=== PATIENT | male | born 1950 | race Caucasian/White ===

== ENCOUNTER 2017-07-08 17:40 | Observation (INO) ==
--- NOTE | 2017-07-08 17:44 | Emergency Department Note ---
General Adult HPI - General Chief complaint: Shortness of Breath/Dyspnea Stated complaint: sob, cp Time Seen by Provider: 07/08/17 17:42 Mode of arrival: ambulatory - History of Present Illness HPI Narrative: This patient has had increasing shortness of breath and edema for the last 2 weeks despite taking 2 water pills. He has some mild chest tightness today. He does have a history of heart failure but not myocardial infarction. Slight nausea no vomiting. Has had a cough. - Related Data Home Medications Medication Instructions Recorded Confirmed albuterol sulfate 2.5 mg/3 mL 2.5 mg INHALATION QIDP PRN ml 12/11/14 04/18/17 (0.083 %) solution for nebulization mycophenolate mofetil 500 mg tablet 1,500 mg PO BID tab 12/11/14 04/18/17 diclofenac 1 % topical gel 2 g TOPICAL HS g 04/21/15 04/18/17 belimumab 400 mg intravenous 1,100 mg IV Q4W ml 01/06/16 04/18/17 solution doxycycline hyclate 100 mg capsule 100 mg PO QDAY cap 06/28/16 04/18/17 Previous Rx's Medication Instructions Recorded diabetic shoes #2 each NS 01/06/16 omeprazole 20 mg capsule,delayed 20 mg PO HS #90 cap 01/06/16 release insulin aspart U-100 100 unit/mL See Label Instructions SUB-Q 04/05/16 subcutaneous solution .COMPLEX #10 ml aspirin 325 mg tablet 325 mg PO QDAY #1 tab 05/24/16 silver ER topical gel,extended 1 applic TOPICAL QDAY #44 ml 05/24/16 release metoprolol tartrate 25 mg tablet See Label Instructions .ROUTE 09/21/16 .COMPLEX #90 tab albuterol sulfate HFA 90 2 puff INHALATION TIDP PRN #26 g 01/11/17 mcg/actuation aerosol inhaler insulin syringe with safety needle See Label Instructions .ROUTE 01/17/17 1 mL 30 gauge x 1/2" .COMPLEX #300 each sertraline 50 mg tablet 50 mg PO QDAY #90 tab 02/15/17 pneumococcal 13-cecilia conj 0.5 ml IM ONCE #0.5 ml 04/18/17 vaccine-dip crm (PF) 0.5 mL IM syringe furosemide 40 mg tablet 40 mg PO QDAY #90 tab 05/14/17 insulin detemir (U-100) 100 1,120 unit SUB-Q QAM 90 Days #1008 05/18/17 unit/mL subcutaneous solution ml warfarin 5 mg tablet 7.5 mg PO QDAY #100 tab 05/21/17 hydrocodone 7.5 mg-acetaminophen 1 tab PO QID PRN #120 tab 06/14/17 325 mg tablet pramipexole 1 mg tablet 4 mg PO HS #360 tab 06/14/17 testosterone cypionate 200 mg/mL 200 mg IM Q3W #4 ml 07/04/17 intramuscular oil Allergies Allergy/AdvReac Type Severity Reaction Status Date / Time Sulfa (Sulfonamide Allergy Severe Swelling Verified 04/18/17 13:50 Antibiotics) of Lip/Tongue/Throat nystatin Allergy Mild Rash Verified 04/18/17 13:50 adhesive Allergy Unknown Rash Verified 04/18/17 13:50 iodine AdvReac Severe Rash Verified 04/18/17 13:50 Review of Systems All systems ED: reviewed and negative except as stated. Past Medical History - Past Medical History [facility] Narrative: Medical History (Last Updated 04/21/17 @ 17:01 by Rajendra Wise MD) Insomnia due to medical condition classified elsewhere (Chronic) Viral syndrome (Resolved) Atrial fibrillation (Resolved) Skin lesions (Chronic) Lupus (systemic lupus erythematosus) (Chronic) Nephrolithiasis (Chronic) Primary biliary cirrhosis (Chronic) Posterior vitreous detachment of right eye (Chronic) Pyelonephritis, acute (Chronic) Weight gain (Chronic) Tinea cruris (Chronic) Radiculopathy (Chronic) Low Back Pain (Chronic) Trigger finger of left hand (Chronic) Dysphagia (Chronic) Edema leg (Chronic) Erectile dysfunction (Chronic) Esophageal reflux (Chronic) Fatigue (Chronic) Foot drop (Chronic 12/25/12) Gout (Chronic) Hyperglycemia, drug-induced (Chronic 09/24/13) Hiatal hernia (Chronic) Umbilical hernia (Chronic) Hypocalcemia (Chronic) Keratoconjunctivitis sicca (Chronic) Insomnia (Chronic 07/23/13) long-term use of drug (Chronic) Solitary lung nodule (Chronic 03/15/12) Lung disease (Chronic) Systemic lupus erythematosus (Chronic) Lymphadenopathy, mediastinal (Chronic 02/10/13) Diastolic heart failure (Chronic) Diabetes mellitus, type II (Chronic 08/28/12) Depressive disorder (Chronic 10/10/12) Obesity (Chronic) Memory loss (Chronic 07/02/12) Osteoarthrosis (Chronic) Pain (Chronic) Paresthesias (Chronic 12/25/12) Acute infective pericarditis (Resolved) Pleural effusion (Resolved 02/10/13) Pneumonia (Resolved) 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) Pulmonary fibrosis (Chronic 08/27/13) Restless leg syndrome (Chronic) Rosacea (Chronic) Shortness of breath (Chronic) Sicca syndrome, Sjogren's (Chronic 08/27/13) Stuttering (Chronic 07/02/12) Testosterone deficiency (Chronic 08/30/12) Thrombocytosis (Chronic) Cough (Chronic) Tinea corporis (Chronic 08/27/12) Tremor, essential (Chronic) Congestive heart failure (Chronic) Bronchitis (Chronic 05/10/12) Biliary cirrhosis (Chronic) Connective 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) Arthralgia (Chronic 07/23/13) Arteritis (Chronic) Anxiety (Chronic 05/08/12) Anemia (Chronic) Atrial fibrillation (Inactive) Bakers cyst (Inactive) Dislocation closed, shoulder (Inactive 04/26/12) History of angiography (Inactive 04/04/13) Malnutrition (Inactive) Nasal bone fx-closed (Inactive 04/26/12) Past Surgical History (Last Updated 04/21/17 @ 17:29 by Rajendra Wise MD) History of esophagogastroduodenoscopy (Resolved 04/21/14) History of colonoscopy (Resolved 04/21/14) History of penile implant (Resolved) History of cardiac catheterization (Inactive 04/04/13) History of cholecystectomy (Inactive) History of foot surgery (Inactive) History of knee surgery (Inactive 04/01/12) History of lumbar discectomy (Inactive) History of lung biopsy (Inactive 01/30/12) History of repair of rotator cuff (Inactive) History of right knee joint replacement (Inactive 06/08/14) History of shoulder surgery (Inactive 12/23/13) History of total right hip arthroplasty (Inactive) S/P skin biopsy (Inactive 12/03/12) S/p reverse total shoulder arthroplasty (Inactive 12/25/12) Status post thoracostomy tube placement (Inactive 05/22/13) Family History (Last Reviewed 04/18/17 @ 15:17 by Rajendra Wise MD) Father Coronary artery disease Mother Malignant neoplasm Home Medications Medication Instructions Recorded Confirmed Type albuterol sulfate 2.5 mg/3 mL 2.5 mg INHALATION QIDP PRN ml 12/11/14 04/18/17 History (0.083 %) solution for nebulization mycophenolate mofetil 500 mg tablet 1,500 mg PO BID tab 12/11/14 04/18/17 History diclofenac 1 % topical gel 2 g TOPICAL HS g 04/21/15 04/18/17 History belimumab 400 mg intravenous 1,100 mg IV Q4W ml 01/06/16 04/18/17 History solution diabetic shoes #2 each NS 01/06/16 04/18/17 Rx omeprazole 20 mg capsule,delayed 20 mg PO HS #90 cap 01/06/16 04/18/17 Rx release insulin aspart U-100 100 unit/mL See Label Instructions SUB-Q 04/05/16 Rx subcutaneous solution .COMPLEX #10 ml aspirin 325 mg tablet 325 mg PO QDAY #1 tab 05/24/16 04/18/17 Rx silver ER topical gel,extended 1 applic TOPICAL QDAY #44 ml 05/24/16 04/18/17 Rx release doxycycline hyclate 100 mg capsule 100 mg PO QDAY cap 06/28/16 04/18/17 History metoprolol tartrate 25 mg tablet See Label Instructions .ROUTE 09/21/16 Rx .COMPLEX #90 tab albuterol sulfate HFA 90 2 puff INHALATION TIDP PRN #26 g 01/11/17 04/18/17 Rx mcg/actuation aerosol inhaler insulin syringe with safety needle See Label Instructions .ROUTE 01/17/17 Rx 1 mL 30 gauge x 1/2" .COMPLEX #300 each sertraline 50 mg tablet 50 mg PO QDAY #90 tab 02/15/17 04/18/17 Rx pneumococcal 13-cecilia conj 0.5 ml IM ONCE #0.5 ml 04/18/17 04/18/17 Rx vaccine-dip crm (PF) 0.5 mL IM syringe prednisone 10 mg tablet 10 mg PO QDAY 04/18/17 04/18/17 History furosemide 40 mg tablet 40 mg PO QDAY #90 tab 05/14/17 Rx insulin detemir (U-100) 100 1,120 unit SUB-Q QAM 90 Days #1008 05/18/17 Rx unit/mL subcutaneous solution ml warfarin 5 mg tablet 7.5 mg PO QDAY #100 tab 05/21/17 Rx hydrocodone 7.5 mg-acetaminophen 1 tab PO QID PRN #120 tab 06/14/17 Rx 325 mg tablet pramipexole 1 mg tablet 4 mg PO HS #360 tab 06/14/17 Rx testosterone cypionate 200 mg/mL 200 mg IM Q3W #4 ml 07/04/17 Rx intramuscular oil Medical history: Reports: arthritis, atrial fibrillation, CHF, DM, GERD, kidney stones, liver disease, other Psychiatric history: Reports: anxiety, depression Surgical history ED: Reports: cholecystectomy, hip replacement, knee replacement , other (foot surgery. Lumbar discectomy. Lung biopsy.) - Social History smoking status: Former smoker Physical Exam Limitations: no limitations General appearance: alert Head: atraumatic Eye: Present: normal appearance ENT: normal exam Neck: Present: normal inspection Chest: Present: normal inspection Respiratory: Present: other (Rales in the bases) Cardiovascular: Present: tachycardia, irregular rhythm, normal heart sounds Abdominal: Present: soft, distention. Absent: tenderness, guarding Extremities: Present: pedal edema, pretibial edema Neurological: Present: alert Psychiatric: Present: normal affect Skin: Present: warm, dry, intact Course Vital Signs Temperature 98.6 F 07/08/17 17:41 Pulse Rate 133 H 07/08/17 17:41 Respiratory Rate 24 H 07/08/17 17:41 Blood Pressure 121/104 07/08/17 17:41 Pulse Oximetry (%) 96 07/08/17 17:41 Temperature 98.6 F 07/08/17 17:41 Pulse Rate 87 07/08/17 18:15 Respiratory Rate 22 07/08/17 18:39 Blood Pressure 105/74 07/08/17 18:15 Pulse Oximetry (%) 95 07/08/17 18:15 Medical Decision Making - [facility] Narrative Medical decision making narrative: Patient is in heart failure with atrial fibrillation with variable rate. I discussed the case with Dr. Raya he will be admitted to a telemetry bed. We gave him 40 of Lasix IV and he did have at least a 500 cc diuresis. - Lab Data Lab results reviewed: Yes I reviewed the patient's lab results. Result diagrams: 07/08/17 17:52 07/08/17 17:52 Lab Results 07/08/17 07/08/17 07/08/17 Range/Units 17:52 17:52 17:52 WBC 5.0 (4.5-11.0) K/mcL RBC 4.57 (4.50-5.90) M/mcL Hgb 13.8 (13.5-16.5) g/dL Hct 41.5 (41.0-55.0) % MCV 90.8 (80.0-100.0) fL MCH 30.2 (26.0-34.0) pg MCHC 33.2 (31.0-36.0) g/dL RDW 14.9 H (11.5-14.5) % Plt Count 241 (140-440) K/mcL MPV 8.6 (7.4-10.4) fL Gran % 80.3 H (38.0-78.0) % Lymph % (Auto) 9.7 L (15.5-49.0) % [place] % (Auto) 8.0 (1.0-12.0) % Eos % (Auto) 1.8 (0.0-7.0) % Baso % (Auto) 0.2 (0.0-2.0) % Gran # 4.0 (1.8-8.0) K/mcL Lymph # (Auto) 0.5 L (1.5-4.8) K/mcL [place] # (Auto) 0.4 (0.1-0.9) K/mcL Eos # (Auto) 0.1 (0.0-0.7) K/mcL Baso # (Auto) 0 (0.0-0.3) K/mcL Sodium 140 (133-145) mmol/L Potassium 4.3 (3.3-5.1) mmol/L Chloride 101 (96-108) mmol/L Carbon Dioxide 24 (22-30) mmol/L Anion Gap 15.0 (8-16) BUN 20 (8-23) mg/dl Creatinine 1.0 (0.7-1.2) mg/dl GFR Calculation 78 Glucose 171 H (70-105) mg/dL Calcium 9.0 (8.6-10.4) mg/dl Total Bilirubin 0.4 (0.0-1.0) mg/dL AST 38 H (0-37) U/l ALT 39 (0-40) U/l Alkaline Phosphatase 172 H (39-117) U/L Troponin T < 0.01 (0-0.03) ng/ml NT-Pro-B Natriuret Pep 3132.0 H (0-125) pg/ml Total Protein 6.8 (5.9-8.4) gm/dL Albumin 3.7 (3.2-5.2) gm/dL Globulin 3.1 (2.2-3.7) gm/dL Albumin/Globulin Ratio 1.2 (1.0-2.3) - Radiology Data Radiology results reviewed: Yes I reviewed the patient's radiology results. 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) Condition: Fair Referrals: Rajendra Wise MD [Primary Care Provider] - Time of Disposition: 18:55
[2017-07-08] MEDS ORDERED: FUROSEMIDE 40 MG/4 ML VIAL IV ONE ×3 (17:48→21:40)
[2017-07-08 18:32] LABS: Basophils # (Auto) 0 K/mcL (0.0-0.3); Basophils % (Auto) 0.2 % (0.0-2.0); Eosinophils # (Auto) 0.1 K/mcL (0.0-0.7); Eosinophils % (Auto) 1.8 % (0.0-7.0); Granulocytes % (Auto) 80.3 % (38.0-78.0); Lymphocytes # (Auto) 0.5 K/mcL (1.5-4.8); Lymphocytes % (Auto) 9.7 % (15.5-49.0); Mean Cell Volume 90.8 fL (80.0-100.0); Mean Corpuscular HGB Conc 33.2 g/dL (31.0-36.0); Mean Corpuscular Hemoglobin 30.2 pg (26.0-34.0); Monocytes # (Auto) 0.4 K/mcL (0.1-0.9); Platelet Count 241 K/mcL (140-440); RBC 4.57 M/mcL (4.50-5.90); Red Cell Distribution Width 14.9 % (11.5-14.5)
[2017-07-08 18:49] LABS: ALT/SGPT 39 U/l (0-40); Albumin 3.7 gm/dL (3.2-5.2); Albumin/Globulin Ratio 1.2 (1.0-2.3); Alkaline Phosphatase 172 U/L (39-117); Blood Urea Nitrogen 20 mg/dl (8-23)
[2017-07-08] MEDS ORDERED: 0.9 % SODIUM CHLORIDE 1,000 ML IV ONE (19:06)
[2017-07-08] MEDS ORDERED: NALOXONE HCL 0.4 MG/ML VIAL IV PRN (19:50)
[2017-07-08] MEDS ORDERED: DEXTROSE 50% 50 ML VIAL IV PRN (19:50)
[2017-07-08] MEDS ORDERED: HYDROcodone/APAP (PP) 7.5/325MG TABLET (#4) PO PRN (19:50)
[2017-07-08] MEDS ORDERED: METOPROLOL TARTRATE 5 MG/5 ML VIAL IV PRN (19:50)
[2017-07-08] MEDS ORDERED: ONDANSETRON 4 MG/2 ML VIAL IV PRN (19:50)
[2017-07-08] MEDS ORDERED: ACETAMINOPHEN 325 MG TABLET PO PRN (19:50)
[2017-07-08] MEDS ORDERED: DEXTROSE 31 GM ORAL.SUSP PO PRN (19:50)
--- NOTE | 2017-07-08 19:58 | XRay Report ---
CLINICAL INFORMATION: Shortness of breath COMPARISON: 06/07/2016 plain film and chest CT 07/08/2015 FINDINGS: Mild cardiomegaly is unchanged. Mediastinum the stylette is unremarkable. The pulmonary vessels are mildly distended compared to a baseline study from 03/16/2014. Slight interstitial edema noted in the lateral bases. Patient has a known prominent fat pad over the cardiac apex increasing density in the left lateral lung base. - No infiltrates IMPRESSION: Minimal CHF or volume overload Interpreted and Authenticated by: Christiano Leal 07/08/17
--- NOTE | 2017-07-08 20:44 | Internal Med History&Physical ---
Medical - H&P: HPI Patient information: Note initiated : 07/08/17 at 8:26 pm Service Date, if different from initiated Date: [] Patient: Ashish Rainey 66 y/o M admitted on 07/08/17 for tobias thomason. Chief Complaint: [] History of present illness: Mr. Rainey is a 66 year old Male with multiple medical issues, afib, Chf, follows with Dr retana, presents to the ER today with complaints of shortness of breath that has been bothering him for the last weeks. Shortness of breath is associated with swelling in his legs, decreased effort tolerance, increased fatigue. The patient is unable to lie down flat and sleep. The patient had some umbilical hernia issues, but denies any other acute complaints. for the last 2 weeks he denies any increase fluid intake, may be having a little more coffee than usual. The patient usually takes 40 mg Lasix twice a day. His gave him an extra dose of Lasix this morning to see if that would help. According to them the patient did not make any more urine and therefore he was brought to the emergency room for further evaluation He denies any infection, fever or chills. He has a chronic headache, no new dizziness, no changes in hearing or difficulty in swallowing changes in vision. He has some chest pressure and chest tightness that has been going on for the last few days. The patient denies any palpitations. He has chronic cough production,he has orthopnea, paroxysmal nocturnal dyspnea, poor effort tolerance which she did not quantify very well. The patient has abdominal distention which she attributes to his hernia, he denies any nausea vomiting no diarrhea or constipation no urinary complaints he has chronic joint pains from his lupus no jaundice reported. in the emergency room the patient was afebrile, heart rate varied from 100 - 140 , blood pressure was stable, labs unremarkable BNP elevated to more than 3000. Chest x-ray shows mild CHF. Patient was given 1 dose of IV Lasix and admitted to the hospital for the management All systems: reviewed and no additional remarkable complaints except as stated ( see HPI) Medical - H&P: PMH Medical history: Medical History (Last Updated 04/21/17 @ 17:01 by Rajendra Wise MD) Insomnia due to medical condition classified elsewhere (Chronic) Viral syndrome (Resolved) Atrial fibrillation (Resolved) Skin lesions (Chronic) Lupus (systemic lupus erythematosus) (Chronic) Nephrolithiasis (Chronic) Primary biliary cirrhosis (Chronic) Posterior vitreous detachment of right eye (Chronic) Pyelonephritis, acute (Chronic) Weight gain (Chronic) Tinea cruris (Chronic) Radiculopathy (Chronic) Low Back Pain (Chronic) Trigger finger of left hand (Chronic) Dysphagia (Chronic) Edema leg (Chronic) Erectile dysfunction (Chronic) Esophageal reflux (Chronic) Fatigue (Chronic) Foot drop (Chronic 12/25/12) Gout (Chronic) Hyperglycemia, drug-induced (Chronic 09/24/13) Hiatal hernia (Chronic) Umbilical hernia (Chronic) Hypocalcemia (Chronic) Keratoconjunctivitis sicca (Chronic) Insomnia (Chronic 07/23/13) 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) Solitary lung nodule (Chronic 03/15/12) Lung disease (Chronic) Systemic lupus erythematosus (Chronic) Lymphadenopathy, mediastinal (Chronic 02/10/13) Diastolic heart failure (Chronic) Diabetes mellitus, type II (Chronic 08/28/12) Depressive disorder (Chronic 10/10/12) Obesity (Chronic) Memory loss (Chronic 07/02/12) Osteoarthrosis (Chronic) Pain (Chronic) Paresthesias (Chronic 12/25/12) Acute infective pericarditis (Resolved) Pleural effusion (Resolved 02/10/13) Pneumonia (Resolved) 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) Pulmonary fibrosis (Chronic 08/27/13) Restless leg syndrome (Chronic) Rosacea (Chronic) Shortness of breath (Chronic) Sicca syndrome, Sjogren's (Chronic 08/27/13) Stuttering (Chronic 07/02/12) Testosterone deficiency (Chronic 08/30/12) Thrombocytosis (Chronic) Cough (Chronic) Tinea corporis (Chronic 08/27/12) Tremor, essential (Chronic) Congestive heart failure (Chronic) Bronchitis (Chronic 05/10/12) Biliary cirrhosis (Chronic) Connective 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) Arthralgia (Chronic 07/23/13) Arteritis (Chronic) Anxiety (Chronic 05/08/12) Anemia (Chronic) Atrial fibrillation (Inactive) Bakers cyst (Inactive) Dislocation closed, shoulder (Inactive 04/26/12) History of angiography (Inactive 04/04/13) Malnutrition (Inactive) Nasal bone fx-closed (Inactive 04/26/12) Surgical history: Past Surgical History (Last Updated 04/21/17 @ 17:29 by Rajendra Wise MD) History of esophagogastroduodenoscopy (Resolved 04/21/14) History of colonoscopy (Resolved 04/21/14) History of penile implant (Resolved) History of cardiac catheterization (Inactive 04/04/13) History of cholecystectomy (Inactive) History of foot surgery (Inactive) History of knee surgery (Inactive 04/01/12) History of lumbar discectomy (Inactive) History of lung biopsy (Inactive 01/30/12) History of repair of rotator cuff (Inactive) History of right knee joint replacement (Inactive 06/08/14) History of shoulder surgery (Inactive 12/23/13) History of total right hip arthroplasty (Inactive) S/P skin biopsy (Inactive 12/03/12) S/p reverse total shoulder arthroplasty (Inactive 12/25/12) Status post thoracostomy tube placement (Inactive 05/22/13) Pertinent family history: Family History (Last Reviewed 04/18/17 @ 15:17 by Rajendra Wise MD) Father Coronary artery disease Mother Malignant neoplasm Medical - H&P: Meds Home Medications Medication Instructions Recorded Confirmed Type albuterol sulfate 2.5 mg/3 mL 2.5 mg INHALATION QIDP PRN ml 12/11/14 07/08/17 History (0.083 %) solution for nebulization mycophenolate mofetil 500 mg tablet 1,500 mg PO BID tab 12/11/14 07/08/17 History diclofenac 1 % topical gel 2 g TOPICAL HS g 04/21/15 07/08/17 History belimumab 400 mg intravenous 1,100 mg IV Q4W ml 01/06/16 07/08/17 History solution diabetic shoes #2 each NS 01/06/16 04/18/17 Rx omeprazole 20 mg capsule,delayed 20 mg PO HS #90 cap 01/06/16 07/08/17 Rx release insulin aspart U-100 100 unit/mL See Label Instructions SUB-Q 04/05/16 Rx subcutaneous solution .COMPLEX #10 ml aspirin 325 mg tablet 325 mg PO QDAY #1 tab 05/24/16 07/08/17 Rx silver ER topical gel,extended 1 applic TOPICAL QDAY #44 ml 05/24/16 07/08/17 Rx release doxycycline hyclate 100 mg capsule 100 mg PO QDAY cap 06/28/16 07/08/17 History metoprolol tartrate 25 mg tablet See Label Instructions .ROUTE 09/21/16 Rx .COMPLEX #90 tab albuterol sulfate HFA 90 2 puff INHALATION TIDP PRN #26 g 01/11/17 07/08/17 Rx mcg/actuation aerosol inhaler insulin syringe with safety needle See Label Instructions .ROUTE 01/17/17 Rx 1 mL 30 gauge x 1/2" .COMPLEX #300 each sertraline 50 mg tablet 50 mg PO QDAY #90 tab 02/15/17 07/08/17 Rx pneumococcal 13-cecilia conj 0.5 ml IM ONCE #0.5 ml 04/18/17 07/08/17 Rx vaccine-dip crm (PF) 0.5 mL IM syringe furosemide 40 mg tablet 40 mg PO QDAY #90 tab 05/14/17 07/08/17 Rx insulin detemir (U-100) 100 1,120 unit SUB-Q QAM 90 Days #1008 05/18/17 Rx unit/mL subcutaneous solution ml warfarin 5 mg tablet 7.5 mg PO QDAY #100 tab 05/21/17 07/08/17 Rx hydrocodone 7.5 mg-acetaminophen 1 tab PO QID PRN #120 tab 06/14/17 07/08/17 Rx 325 mg tablet pramipexole 1 mg tablet 4 mg PO HS #360 tab 06/14/17 07/08/17 Rx testosterone cypionate 200 mg/mL 200 mg IM Q3W #4 ml 07/04/17 07/08/17 Rx intramuscular oil Allergies Allergy/AdvReac Type Severity Reaction Status Date / Time Sulfa (Sulfonamide Allergy Severe Swelling Verified 04/18/17 13:50 Antibiotics) of Lip/Tongue/Throat nystatin Allergy Mild Rash Verified 04/18/17 13:50 adhesive Allergy Unknown Rash Verified 04/18/17 13:50 iodine AdvReac Severe Rash Verified 04/18/17 13:50 Medical - H&P: Exam - Constitutional Vitals: Temp Pulse Resp BP Pulse Ox 98.6 F 98 H 27 H 127/74 96 07/08/17 17:41 07/08/17 20:00 07/08/17 19:02 07/08/17 20:00 07/08/17 20:00 Exam: GENERAL: The patient is a well-developed, well-nourished in no apparent distress. Is alert and oriented x3. VITAL SIGNS: Reviewed and as noted elsewhere. HEENT: Head is normocephalic and atraumatic. Extraocular muscles are intact. Pupils are equal, round, and reactive to light. Nares appeared normal. Mouth appears any without lesions. Mucous membranes are moist. NECK: Normal to inspection, Supple, No lymphadenopathy or thyromegaly. LUNGS: Air entry equal on both sides, no wheezing, but mild basilar crackles noted. No accessory muscles of respiration HEART:tachycardic rate, irregular rhythm , S1 and S2 heard, no Gallop, S3 or Rub Noted, systolic murmur mitral region. . ABDOMEN: Soft, nontender, and nondistended , obese abdomen with flank fullness. Positive bowel sounds. No gross hepatosplenomegaly was noted. EXTREMITIES: No cyanosis, edema present ++++ NEUROLOGIC: Cranial nerves II through XII are grossly intact. Motor and Sensory System Grossly Intact PSYCHIATRIC: Normal affect, Normal Mood. Appropriate Behavior. SKIN: No ulceration or wounds noted, No jaundice, No rash noted. Medical - H&P: Reslt - Labs CBC & Chem 7: 07/08/17 17:52 07/08/17 17:52 Labs: Short CBC 07/08/17 Range/Units 17:52 WBC 5.0 (4.5-11.0) K/mcL Hgb 13.8 (13.5-16.5) g/dL Hct 41.5 (41.0-55.0) % Plt Count 241 (140-440) K/mcL [facility] 07/08/17 17:52 Sodium 140 Potassium 4.3 Chloride 101 Carbon Dioxide 24 BUN 20 Creatinine 1.0 Glucose 171 H Calcium 9.0 Cardiac Enzymes 07/08/17 Range/Units 17:52 Troponin T < 0.01 (0-0.03) ng/ml Liver Function 07/08/17 Range/Units 17:52 Total Bilirubin 0.4 (0.0-1.0) mg/dL AST 38 H (0-37) U/l ALT 39 (0-40) U/l Alkaline Phosphatase 172 H (39-117) U/L Albumin 3.7 (3.2-5.2) gm/dL Medical - H&P: A/P - Narrative A/P Narrative: A/P Acute congestive heart failure: H/o pericarditis, according to the patient, get echo, last echo 1 yr ago shows normal lvef, IV lasix 40mg bid, place ceja, monitor on tele, fluid restriction to 2000ml /24 hrs. Etiology of chf? afib? was using steroids uptill recently, check tsh in AM. Afib with RVR: resume oral metoprolol takes 12.5 bid? IV metoprolol as needed to keep heart rate at goal. DM: Uncontrolled, glucose 174 on bmp,k was taking 100 of levemir, resume at 75 and sliding scale and monitor, titrate as needed HTN: Resume home bp medications/ metoprolol SLE/ Primary billiarry cirrhosis: Resume home [id number] , cellcept, BELIMUMAB (to be given on sunday) Chr Anticoagulation: INR sub therapeutic, on asa and coumadin, continue same, lovenox therapeutic dose for now. 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
[2017-07-08] MEDS ORDERED: PRAMIPEXOLE 1 MG TABLET PO SCH (21:00)
[2017-07-08] MEDS ORDERED: MYCOPHENOLATE MOFETIL 1500 MG PO SCH (21:00)
[2017-07-08] MEDS: ENOXAPARIN 120 MG/0.8 ML SYRINGE SQ SCH (21:49)
[2017-07-08] MEDS: OMEPRAZOLE 20 MG CAPSULE PO SCH (21:49)
[2017-07-08] MEDS: METOPROLOL TARTRATE 25 MG TABLET PO SCH (21:50)
[2017-07-08] MEDS: oxyCODONE/APAP 5/325MG TABLET PO PRN (22:29)
[2017-07-08] MEDS: INSULIN LISPRO 1 UNIT/0.01 ML UNIT SQ SCH (22:30)
[2017-07-08] MEDS: 0.9 % SODIUM CHLORIDE 10 ML SYRINGE IV SCH (22:36)
[2017-07-09] MEDS: IPRATROPIUM/ALBUTEROL 3 ML AMPUL.NEB NEB SCH ×4 (03:19→18:01)
[2017-07-09 05:30] LABS: Basophils # (Auto) 0 K/mcL (0.0-0.3); Basophils % (Auto) 0 % (0.0-2.0); Eosinophils # (Auto) 0.2 K/mcL (0.0-0.7); Granulocytes % (Auto) 78.9 % (38.0-78.0); Lymphocytes # (Auto) 0.5 K/mcL (1.5-4.8); Lymphocytes % (Auto) 10.3 % (15.5-49.0); Mean Cell Volume 90.4 fL (80.0-100.0); Mean Corpuscular HGB Conc 33.5 g/dL (31.0-36.0); Mean Corpuscular Hemoglobin 30.3 pg (26.0-34.0); Monocytes # (Auto) 0.3 K/mcL (0.1-0.9); Monocytes % (Auto) 6.8 % (1.0-12.0); Platelet Count 241 K/mcL (140-440); RBC 4.54 M/mcL (4.50-5.90); Red Cell Distribution Width 14.6 % (11.5-14.5)
[2017-07-09 06:38] LABS: ALT/SGPT 35 U/l (0-40); Albumin 3.3 gm/dL (3.2-5.2); Alkaline Phosphatase 137 U/L (39-117); Bilirubin,Direct < 0.2 mg/dL (0.0-0.3); Blood Urea Nitrogen 24 mg/dl (8-23); Gamma Glutamyl Transpeptidase 142 U/L (8-61); Uric Acid 7.8 mg/dL (2.5-8.0)
[2017-07-09] MEDS: 0.9 % SODIUM CHLORIDE 10 ML SYRINGE IV SCH ×3 (07:08→21:02)
[2017-07-09] MEDS ORDERED: MAGNESIUM SULFATE 2 GM/50 ML BAG IV ONE (07:25)
[2017-07-09] MEDS ORDERED: POTASSIUM CHLORIDE 20 MEQ PACKET PO ONE (07:25)
[2017-07-09] MEDS: INSULIN LISPRO 1 UNIT/0.01 ML UNIT SQ SCH ×4 (08:00→20:21)
[2017-07-09] MEDS: FUROSEMIDE 40 MG/4 ML VIAL IV SCH ×2 (08:05→16:31)
[2017-07-09] MEDS: ASPIRIN 325 MG ENTERIC COATED TABLET PO SCH (08:55)
[2017-07-09] MEDS: DOXYCYCLINE HYCLATE 100 MG TABLET.ORL PO SCH (08:55)
[2017-07-09] MEDS: INSULIN GLARGINE, HUMAN 1 UNIT/0.01 ML SQ SCH (08:55)
[2017-07-09] MEDS: SERTRALINE 50 MG TABLET PO SCH (08:55)
[2017-07-09] MEDS: METOPROLOL TARTRATE 25 MG TABLET PO SCH ×2 (08:55→20:07)
[2017-07-09] MEDS: ENOXAPARIN 120 MG/0.8 ML SYRINGE SQ SCH ×2 (08:56→20:07)
[2017-07-09] MEDS: MYCOPHENOLATE 250 MG CAPSULE PO SCH ×2 (09:11→19:19)
--- NOTE | 2017-07-09 11:07 | Internal Med Progress Note ---
Medical - PN: Subj Patient information: Note initiated : 07/09/17 at 11:05 am Service Date, if different from initiated Date: [] Patient: Ashish Rainey 66 y/o M admitted on 07/08/17 for SOB/Afib with RVR, CHF. Chief Complaint: [] Interval history: Mr. Rainey is a 66 year old Male with multiple medical issues, afib, Chf, follows with Dr retana, presents to the ER today with complaints of shortness of breath that has been bothering him for the last weeks. Shortness of breath is associated with swelling in his legs, decreased effort tolerance, increased fatigue. The patient is unable to lie down flat and sleep. The patient had some umbilical hernia issues, but denies any other acute complaints. for the last 2 weeks he denies any increase fluid intake, may be having a little more coffee than usual. The patient usually takes 40 mg Lasix twice a day. His gave him an extra dose of Lasix this morning to see if that would help. According to them the patient did not make any more urine and therefore he was brought to the emergency room for further evaluation He denies any infection, fever or chills. He has a chronic headache, no new dizziness, no changes in hearing or difficulty in swallowing changes in vision. He has some chest pressure and chest tightness that has been going on for the last few days. The patient denies any palpitations. He has chronic cough production,he has orthopnea, paroxysmal nocturnal dyspnea, poor effort tolerance which she did not quantify very well. The patient has abdominal distention which she attributes to his hernia, he denies any nausea vomiting no diarrhea or constipation no urinary complaints he has chronic joint pains from his lupus no jaundice reported. in the emergency room the patient was afebrile, heart rate varied from 100 - 140 , blood pressure was stable, labs unremarkable BNP elevated to more than 3000. Chest x-ray shows mild CHF. Patient was given 1 dose of IV Lasix and admitted to the hospital for the management July 09 patient seen and examined, sitting comfortably in the bed, no acute complaints. Breathing is better. He diuresed well overnight. Still has edema in the feet. Able to ablate well and tolerated by mouth diet well. Plan to continue diuresis for 1 more day Pertinent ROS: Denies headache, dizziness Denies chest pain, palpitations Denies cough or shortness of breath Denies abdominal pain, nausea or vomiting. - Constitutional Vitals: Vital Signs Temp Pulse Resp BP Pulse Ox 97.3 F 73 16 121/71 91 07/09/17 08:00 07/09/17 08:02 07/09/17 08:02 07/09/17 08:02 07/09/17 05:50 Period Temp Pulse Resp BP Sys/Corey Pulse Ox Last 24 Hr 97.3 F-98.6 F 52-155 16-27 105-146/68-126 91-99 Intake and Output 07/08/17 07/09/17 07/09/17 21:59 05:59 13:59 Intake Total 33 / 33 850 / 850 480 / 480 Output Total 2300 / 2300 2450 / 2450 1275 / 1275 Balance -2267 / -2267 -1600 / -1600 -795 / -795 Weight 282 lb Intake & Output: Intake & Output 07/08/17 07/09/17 07/09/17 21:59 05:59 13:59 Intake Total 33 / 33 850 / 850 480 / 480 Output Total 2300 / 2300 2450 / 2450 1275 / 1275 Balance -2267 / -2267 -1600 / -1600 -795 / -795 Weight 282 lb Intake: IV 33 / 33 Sodium Chloride 0.9% 1,000 ml @ 33 / 33 20 mls/hr IV .Q24H ONE Rx#: [id number] Oral 480 / 480 GI Tube Flush 850 / 850 Output: Urine Catheter Amount 2450 / 2450 Void Amount 2300 / 2300 1275 / 1275 Other: Meal Breakfast Percent of Meal Consumed 100% Feeding Ability Assist with Tray Set Up Stool Color Brown Stool Consistency Soft # Voids 3 # Bowel Movements 1 Exam: Constitutional; Afebrile, cooperative, alert, not in distress. Eyes- No icterus, , No periorbital swelling Ears- Ext ear normal, hearing normal to conversation. Neck- Midline trachea, supple Respiratory system: Air Entry equal on both sides, No crackles or wheezing, no rhonchi.(NO CRACKLES ON EXAM TODAY) CVS- Rate rhythm regular, S1,S2 heard, no gallop, no rub. edema improved from yesterday but still present Abdomen- Soft nontender abdomen, no organomegaly, no tenderness, no guarding or rigidity, NOC ENGINEER- AOOx3, moving all extremities, no gross focal deficit noted. Medical - PN: Obj Da - Labs CBC & Chem 7: 07/09/17 03:42 07/09/17 03:42 Labs: Abnormal Lab Results 07/09/1718 07/09/17 03:42 03:42 03:42 RDW 14.6 H Gran % 78.9 H Lymph % (Auto) 10.3 L Lymph # (Auto) 0.5 L PT 15.2 H INR 1.2 H BUN 24 H Glucose GGT 142 H AST Alkaline Phosphatase 137 H NT-Pro-B Natriuret Pep 07/08/17 07/08/17 07/08/17 17:52 17:52 17:52 RDW 14.9 H Gran % 80.3 H Lymph % (Auto) 9.7 L Lymph # (Auto) 0.5 L PT 16.6 H INR 1.3 H BUN Glucose 171 H GGT AST 38 H Alkaline Phosphatase 172 H NT-Pro-B Natriuret Pep 3132.0 H Meds: Medications Acetaminophen (Tylenol) 650 mg PO Q6HP PRN PRN Reason: PAIN/FEVER > 101 Albuterol/Ipratropium (Duoneb) 3 ml NEB Q6HRT [facility] Last Admin: 07/09/17 07:59 Dose: 3 ml Aspirin (Ecotrin) 325 mg PO DAILY [facility] Last Admin: 07/09/17 08:55 Dose: 325 mg Dextrose (Dextrose 50%) 0 ml IV UD PRN PRN Reason: Hypoglycemia Diagnostic Test (Pha) (Accu-Chek) 1 each FS ACHS [facility] Last Admin: 07/09/17 07:59 Dose: 1 each Doxycycline Hyclate (Doxycycline Hyclate) 100 mg PO DAILY [facility] Last Admin: 07/09/17 08:55 Dose: 100 mg Enoxaparin Sodium (Lovenox) 120 mg SQ BID [facility] Last Admin: 07/09/17 08:56 Dose: 120 mg Furosemide (Lasix) 40 mg IV BIDD [facility] Last Admin: 07/09/17 08:05 Dose: 40 mg Glucose (Insta-Glucose) 15 gm PO PRN PRN PRN Reason: Hypoglycemia Sodium Chloride (Sodium Chloride 0.9%) 1,000 mls @ 20 mls/hr IV .Q24H ONE Stop: 07/09/17 19:05 Last Infusion: 07/08/17 19:40 Dose: 0 mls/hr Insulin Glargine (Lantus) 75 unit SQ DAILY [facility] Last Admin: 07/09/17 08:55 Dose: 75 unit Insulin Human Lispro (Humalog) 0 unit SQ ACHS [facility] PRN Reason: Protocol Last Admin: 07/09/17 08:00 Dose: Not Given Metoprolol Tartrate (Lopressor) 5 mg IV Q4HP PRN PRN Reason: Tachyarrhythmias Last Admin: 07/08/17 21:51 Dose: 5 mg Metoprolol Tartrate (Lopressor) 12.5 mg PO BID [facility] Last Admin: 07/09/17 08:55 Dose: 12.5 mg Mycophenolate Mofetil (Cellcept) 1,500 mg PO BID@0700,2000 [facility] Last Admin: 07/09/17 09:11 Dose: 1,500 mg Naloxone HCl (Narcan) 0.1 mg IV Q2MIN PRN PRN Reason: Opiate Reversal Omeprazole (Prilosec) 20 mg PO HS [facility] Last Admin: 07/08/17 21:49 Dose: 20 mg Ondansetron HCl (Zofran) 4 mg IV Q4HP PRN PRN Reason: Nausea And Vomiting Oxycodone/Acetaminophen (Percocet 5-325 Mg) 1 tab PO Q4HP PRN PRN Reason: PAIN LEVEL 3-6 Last Admin: 07/08/17 22:29 Dose: 1 tab Pramipexole Dihydrochloride (Mirapex) 1 - [address] [facility] Pramipexole Dihydrochloride (Mirapex) 1 - 2 mg PO DAILY [facility] Sertraline HCl (Zoloft) 50 mg PO QDAY [facility] Last Admin: 07/09/17 08:55 Dose: 50 mg Sodium Chloride (Saline Flush) 10 ml IV Q8 [facility] Last Admin: 07/09/17 07:08 Dose: 10 ml Warfarin Sodium (Coumadin Per Pharmacy) 1 order PO UD [facility] Warfarin Sodium (Coumadin) 7.5 mg PO ONCE@1400 ONE Stop: 07/09/17 14:01 Medical - PN: A/P - Time Spent With Patient Total time spent is greater than 50% in coordination of care (as documented) at patient's floor/unit and/or counseling patient: - Narrative A/P Narrative: A/P Acute congestive heart failure: H/o pericarditis, echo pending, responding well to diureisis. Continue same. tsh wnl Afib with RVR: resume oral metoprolol takes 12.5 bid? IV metoprolol as needed to keep heart rate at goal. DM: Uncontrolled, glucose 174 on bmp,k was taking 100 of levemir, resume at 75 and sliding scale and monitor, titrate as needed HTN: Resume home bp medications/ metoprolol SLE/ Primary billiarry cirrhosis: Resume home [id number] , cellcept, BELIMUMAB (to be given on sunday, will need to be discharged for this medication to be given) Chr Anticoagulation: INR sub therapeutic, on asa and coumadin, continue same, lovenox therapeutic dose for now. DVT on lovenox full code Diet cardiac, diabetic, fluid restriction Medical - PN: Qual - Stroke Symptom Onset Unknown: No - VTE Deep Vein Thrombosis/Pulmonary Embolism Present on Admission: No
[2017-07-09] MEDS ORDERED: PRAMIPEXOLE 1 MG TABLET PO SCH ×2 (12:00→21:00)
[2017-07-09] MEDS ORDERED: WARFARIN 7.5 MG TABLET PO ONE (14:00)
[2017-07-09] MEDS: HYDROCORTISONE CRM 1% TUBE 30GM TOPICAL SCH ×2 (14:18→20:21)
[2017-07-09] MEDS ORDERED: METHOCARBAMOL 500 MG TABLET PO ONE (18:45)
[2017-07-09] MEDS ORDERED: METHOCARBAMOL 500 MG TABLET PO PRN (18:45)
[2017-07-09] MEDS: oxyCODONE/APAP 5/325MG TABLET PO PRN (19:45)
[2017-07-09] MEDS: OMEPRAZOLE 20 MG CAPSULE PO SCH (20:07)
[2017-07-09] MEDS ORDERED: HYDROCORTISONE CRM 1% TUBE 30GM TOPICAL SCH (21:00)
[2017-07-10] MEDS: IPRATROPIUM/ALBUTEROL 3 ML AMPUL.NEB NEB SCH ×2 (01:03→07:17)
[2017-07-10 05:14] LABS: ALT/SGPT 35 U/l (0-40); Albumin 3.5 gm/dL (3.2-5.2); Albumin/Globulin Ratio 1.1 (1.0-2.3); Alkaline Phosphatase 126 U/L (39-117); Bilirubin,Direct < 0.2 mg/dL (0.0-0.3); Blood Urea Nitrogen 23 mg/dl (8-23); Gamma Glutamyl Transpeptidase 153 U/L (8-61); Uric Acid 8.4 mg/dL (2.5-8.0)
[2017-07-10 05:17] LABS: Basophils # (Auto) 0 K/mcL (0.0-0.3); Basophils % (Auto) 0.2 % (0.0-2.0); Eosinophils # (Auto) 0.2 K/mcL (0.0-0.7); Eosinophils % (Auto) 3.4 % (0.0-7.0); Granulocytes % (Auto) 77.1 % (38.0-78.0); Lymphocytes # (Auto) 0.5 K/mcL (1.5-4.8); Lymphocytes % (Auto) 10.3 % (15.5-49.0); Mean Cell Volume 90.8 fL (80.0-100.0); Mean Corpuscular HGB Conc 33.3 g/dL (31.0-36.0); Mean Corpuscular Hemoglobin 30.2 pg (26.0-34.0); Monocytes # (Auto) 0.5 K/mcL (0.1-0.9); Platelet Count 245 K/mcL (140-440); RBC 4.56 M/mcL (4.50-5.90); Red Cell Distribution Width 14.5 % (11.5-14.5)
[2017-07-10] MEDS: 0.9 % SODIUM CHLORIDE 10 ML SYRINGE IV SCH (05:20)
[2017-07-10] MEDS: MYCOPHENOLATE 250 MG CAPSULE PO SCH (07:24)
[2017-07-10] MEDS: INSULIN LISPRO 1 UNIT/0.01 ML UNIT SQ SCH (07:32)
[2017-07-10] MEDS: FUROSEMIDE 40 MG/4 ML VIAL IV SCH (07:59)
[2017-07-10] MEDS: METOPROLOL TARTRATE 25 MG TABLET PO SCH (08:38)
[2017-07-10] MEDS: ASPIRIN 325 MG ENTERIC COATED TABLET PO SCH (08:39)
[2017-07-10] MEDS: SERTRALINE 50 MG TABLET PO SCH (08:39)
[2017-07-10] MEDS: INSULIN GLARGINE, HUMAN 1 UNIT/0.01 ML SQ SCH (08:40)
[2017-07-10] MEDS: DOXYCYCLINE HYCLATE 100 MG TABLET.ORL PO SCH (08:40)
[2017-07-10] MEDS: ENOXAPARIN 120 MG/0.8 ML SYRINGE SQ SCH (08:40)
[2017-07-10] MEDS: HYDROCORTISONE CRM 1% TUBE 30GM TOPICAL SCH (08:41)
--- NOTE | 2017-07-10 09:17 | Discharge Summary ---
Medical - DS: Prov Patient information: Note initiated : 07/10/17 at 9:14 am Service Date, if different from initiated Date: [] Patient: Ashish Rainey 66 y/o M admitted on 07/08/17 for SOB/Afib with RVR, CHF. Chief Complaint: [] Date of admission: 07/08/17 19:41 Discharge date: 07/10/17 Primary care physician: Rajendra Wise Admitting clinician: Femi Raya Consults: 07/08/17 18:52 Consult to Physician [CONS] Stat Comment: Consulting Provider: Femi Raya Reason For Exam: Physician to Consult Discharging clinician: Femi Raya Medical - DS: Meds - Discharge Medications Prescriptions: Apixaban [Eliquis] 5 mg PO BID #60 tab Aspirin [Aspirin EC] 81 mg PO DAILY #30 tablet. Active and Home Medications: Home Medications albuterol sulfate 2.5 mg/3 mL (0.083 %) solution for nebulization 2.5 mg INHALATION QIDP PRN ml 12/11/14 [History Confirmed 07/08/17 Last Taken 09/04/16 ] mycophenolate mofetil 500 mg tablet 1,500 mg PO BID tab 12/11/14 [History Confirmed 07/08/17 Last Taken 09/04/16] diclofenac 1 % topical gel 2 g TOPICAL HS g 04/21/15 [History Confirmed Last Taken 09/04/16] belimumab 400 mg intravenous solution 1,100 mg IV Q4W ml 01/06/16 [History Confirmed 07/08/17 Last Taken 09/04/16] omeprazole 20 mg capsule,delayed release 20 mg PO HS #90 cap 01/06/16 [Rx Confirmed 07/08/17 Last Taken 09/04/16] insulin aspart U-100 100 unit/mL subcutaneous solution See Label Instructions SUB-Q .COMPLEX #10 ml 04/05/16 [Rx Confirmed 07/08/17 Last Taken 09/04/16] aspirin 325 mg tablet 325 mg PO QDAY #1 tab 05/24/16 [Rx Confirmed 07/08/17 Last Taken 09/04/16] silver ER topical gel,extended release 1 applic TOPICAL QDAY #44 ml 05/24/16 [ Rx Confirmed 07/08/17 Last Taken 09/04/16] doxycycline hyclate 100 mg capsule 100 mg PO QDAY cap 06/28/16 [History Confirmed 07/08/17 Last Taken 09/04/16] metoprolol tartrate 25 mg tablet See Label Instructions .ROUTE .COMPLEX #90 tab 09/21/16 [Rx Confirmed 07/08/17 Last Taken Unknown] albuterol sulfate HFA 90 mcg/actuation aerosol inhaler 2 puff INHALATION TIDP PRN #26 g 01/11/17 [Rx Confirmed 07/08/17 Last Taken Unknown] sertraline 50 mg tablet 50 mg PO QDAY #90 tab 02/15/17 [Rx Confirmed 07/08/17 Last Taken Unknown] pneumococcal 13-cecilia conj vaccine-dip crm (PF) 0.5 mL IM syringe 0.5 ml IM ONCE # 0.5 ml 04/18/17 [Rx Confirmed 07/08/17 Last Taken Unknown] furosemide 40 mg tablet 40 mg PO QDAY #90 tab 05/14/17 [Rx Confirmed 07/08/17 Last Taken Unknown] warfarin 5 mg tablet 7.5 mg PO QDAY #100 tab 05/21/17 [Rx Confirmed 07/08/17 Last Taken Unknown] hydrocodone 7.5 mg-acetaminophen 325 mg tablet 1 tab PO QID PRN #120 tab [Rx Confirmed 07/08/17 Last Taken Unknown] pramipexole 1 mg tablet 4 mg PO HS #360 tab 06/14/17 [Rx Confirmed 07/08/17 Last Taken Unknown] testosterone cypionate 200 mg/mL intramuscular oil 200 mg IM Q3W #4 ml 07/04/17 [Rx Confirmed 07/08/17 Last Taken Unknown] Insulin Glargine, Human [Lantus] 100 unit SQ DAILY 07/09/17 [History Confirmed 07/09/17 Last Taken 07/08/17] Medical - DS: Hosp Hospital course: Mr. Rainey is a 66 year old Male with multiple medical issues, afib, Chf, follows with Dr araiza, presents to the ER today with complaints of shortness of breath that has been bothering him for the last few weeks. Shortness of breath is associated with swelling in his legs, decreased effort tolerance, increased fatigue. The patient is unable to lie down flat and sleep. The patient had some umbilical hernia issues, but denies any other acute complaints. for the last 2 weeks he denies any increase fluid intake, may be having a little more coffee than usual. The patient usually takes 40 mg Lasix twice a day. His gave him an extra dose of Lasix this morning to see if that would help. According to them the patient did not make any more urine and therefore he was brought to the emergency room for further evaluation. In the emergency room the patient was afebrile, heart rate varied from 100 - 140, blood pressure was stable, labs unremarkable BNP elevated to more than 3000. Chest x-ray shows mild CHF. Patient was given 1 dose of IV Lasix and admitted to the hospital for the management CHF exacerbation: Patient treated with IV lasix 40mg bid, patient responded well to treatment, neg 5400ml at discharge. At the time of discharge he was breathing better, edema of his legs nearly completely resolved. He will continue his home dose of lasix 40mg daily, advised low salt diet and to monitor his weight daily. Follow up with PCP and Petrographer as outpatient. Afib/ Chronic Anticoagulation: Patient has h/o intermittent afib, he is on Coumadin and his INR was 1.1, he has been on Coumadin for years, and his INR has never been at goal according to the patient. He will be switched from Coumadin to Eliquis at discharge. Should he not be able to afford this medicaiton or insuranc not covering it, he can go back on coumadin. The patient also takes aspirin 325mg daily. He does mention h/o of cath in past with angioplasty, not sure if a stent was placed. I have advised him to cut back the dose of aspirin to 81mg once daily. Given that he is on 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 for his Atrial fibrillation, the need for ASA will need to be looked into. WIll leave this decision at the discretion of beef trimmer. The rest of the stay in the hospital was uneventful, he had some cramping in his legs, and there was some concern in the patient mind about a DVT, but given that he is anticoagulated with coumadin, ( d dimer low positive 0.68) and will be on anticogulation for rest of his life further investigation would be moot, this was reviewed with the patient, who agreed with the plan Discharge diagnosis: CHF exacerbation - Time Spent with Patient Total time spent providing and/or coordinating discharge services: Greater than 30 minutes Medical - DS: Exam - Constitutional Vitals: Vital Signs Temp Pulse Resp BP BP Pulse Ox 07/10/17 07:20 72 16 07/10/17 07:07 18 114/65 07/10/17 07:03 97.2 F 18 114/65 96 07/10/17 03:58 97.3 F 18 123/78 94 07/09/17 23:46 97.3 F 18 110/46 95 07/09/17 19:50 98.5 F 20 117/83 95 07/09/17 15:17 97.1 F 18 101/73 95 07/09/17 15:08 101/73 95 07/09/17 13:59 69 16 07/09/17 12:00 97.4 F 07/09/17 11:20 97.2 F 16 110/71 97 07/09/17 11:17 110/71 Intake and Output 07/09/17 07/10/17 07/10/17 21:59 05:59 13:59 Intake Total 850 / 850 400 / 400 Output Total 925 / 925 1250 / 1250 550 / 550 Balance -75 / -75 -850 / -850 -550 / -550 Intake: Oral 850 / 850 400 / 400 Output: Urine Catheter Amount 925 / 925 1250 / 1250 100 / 100 Void Amount 450 / 450 Other: # Voids 1 Weight 281 lb 8 oz Additional comments: Constitutional; Afebrile, cooperative, alert, not in distress. Eyes- No icterus, , No periorbital swelling Ears- Ext ear normal, hearing normal to conversation. Neck- Midline trachea, supple Respiratory system: Air Entry equal on both sides, No crackles or wheezing, no rhonchi. CVS- Rate rhythm regular, S1,S2 heard, no gallop, no rub. Abdomen- Soft nontender abdomen, no organomegaly, no tenderness, no guarding or rigidity, PLAN EXAMINER- AOOx3, moving all extremities, no gross focal deficit noted. Medical - DS: Data Labs on day of discharge: Labs from last 24 hours 07/10/17 07/10/17 07/10/17 03:41 03:41 03:41 WBC 5.3 RBC 4.56 Hgb 13.8 Hct 41.4 MCV 90.8 MCH 30.2 MCHC 33.3 RDW 14.5 Plt Count 245 MPV 8.6 Gran % 77.1 Lymph % (Auto) 10.3 L Hayes % (Auto) 9.0 Eos % (Auto) 3.4 Baso % (Auto) 0.2 Gran # 4.1 Lymph # (Auto) 0.5 L Hayes # (Auto) 0.5 Eos # (Auto) 0.2 Baso # (Auto) 0 PT 14.5 INR 1.1 D-Dimer Sodium 141 Potassium 3.8 Chloride 99 Carbon Dioxide 30 Anion Gap 12.0 BUN 23 Creatinine 0.9 GFR Calculation 89 Glucose 125 H Uric Acid 8.4 H Calcium 9.0 Phosphorus 4.7 H Magnesium 2.0 Total Bilirubin 0.5 Direct Bilirubin < 0.2 GGT 153 H AST 38 H ALT 35 Alkaline Phosphatase 126 H Lactate Dehydrogenase 234 Total Protein 6.6 Albumin 3.5 Globulin 3.1 Albumin/Globulin Ratio 1.1 Triglycerides 92 07/09/17 07/09/17 18:43 18:43 WBC RBC Hgb Hct MCV MCH MCHC RDW Plt Count MPV Gran % Lymph % (Auto) Hayes % (Auto) Eos % (Auto) Baso % (Auto) Gran # Lymph # (Auto) Hayes # (Auto) Eos # (Auto) Baso # (Auto) PT INR D-Dimer 0.68 H Sodium Potassium 4.0 Chloride Carbon Dioxide Anion Gap BUN Creatinine GFR Calculation Glucose Uric Acid Calcium Phosphorus Magnesium 2.0 Total Bilirubin Direct Bilirubin GGT AST ALT Alkaline Phosphatase Lactate Dehydrogenase Total Protein Albumin Globulin Albumin/Globulin Ratio Triglycerides Medical - DS: A/P - Patient/Caregiver Discharge Instructions Activity: increase activity as tolerated Diet: Low Sodium (2gm), Cardiac (Fluid restriction to 2000ml / 24 hrs. ), Consistent Carbohydrate Additional Instructions: Please weigh yourself daily and keep record Takes lasix as directed by your doctor, If your weight increases by 5 lbs over 2 days, double the dose of lasix, if no response, call your PCP/ Petrographer for further recommendations. I have stopped your Coumadin and started you on a newer blood thinner drug, Eliquis. Please moss picker the prescription from the pharmacy, if you are unable to get the medication for any reason, cost/ need for insurance approval, please resume your Coumadin and talk with your Primary care provider or beef trimmer regarding alternatives to coumadin Go to the ER if bleeding, black stools, fever, chest pain or any other concerning symptom. Follow up with PCP in 1 week, your PCP will review the echo results with you. Follow up with your beef trimmer, who can also review your echo results and adjust your dosing of lasix. Talk to your beef trimmer regarding need for aspirin therapy, especially since you are already taking another blood thinner. - Follow up Plan Follow up with: Rajendra Wise MD [Primary Care Provider] - 07/16/17 9:45 am (Please check in at 9:30 am. Your appointment will be with Dr. Vickers as Dr. Wise is out of the office.) Aaron Araiza MD [Physician] - (Follow up with Dr. Araiza as needed.) Disposition: Home, Self-Care Prognosis: Fair Rehab Potential: Fair I certify that the patient requires SNF services: No Overall status at discharge: patient is back to baseline Medical - DS: Qual - VTE Deep Vein Thrombosis/Pulmonary Embolism Present on Admission: No
[2017-07-10] MEDS ORDERED: WARFARIN 7.5 MG TABLET PO ONE (14:00)
== END 2017-07-10 09:50 | disposition home or self-care (01) ==
LOC: ED 17:40 → ICU 17:40
PROVIDERS: ADMIT Internal Medicine; ATTEND Internal Medicine

== ENCOUNTER 2022-07-08 13:59 | Inpatient (IN) ==
--- NOTE | 2022-07-08 14:03 | Emergency Department Note ---
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 (Auto) (0.0-7.0) % Baso % (Auto) (0.0-2.0) % Lymph # (Auto) (1.50-4.80) K/mcL Miner # (Auto) (0.10-0.90) K/mcL Eos # (Auto) (0.00-0.70) K/mcL Baso # (Auto) (0.00-0.30) K/mcL Immature Gran # (0.00-0.05) K/mcl Absolute Neutrophils (1.80-8.00) K/mcL POC VBG pH (7.32-7.42) POC VBG pCO2 at Temp (41-51) POC VBG pO2 (25-40) POC VBG HCO3 (24-28) POC VBG Total CO2 (25-29) POC Venous O2 Sat (40-70) POC VBG Base Excess (-2-2) VBG Lactic Acid (0.5-2) Total Bilirubin 0.7 (0.1-1.0) mg/dL Direct Bilirubin 0.3 H (<0.3) mg/dL AST 42 H (<40) U/L ALT 35 (<40) U/L Alkaline Phosphatase 169 H (39-117) U/L NT-Pro-B Natriuret Pep (<125.0) pg/mL Total Protein 6.7 (5.9-8.4) gm/dL Albumin 4.0 (3.2-5.2) gm/dL Globulin 2.7 (2.2-3.7) gm/dL Procalcitonin 0.42 H (<0.10) ng/mL Urine Color Urine Appearance (Clear) Urine pH (5.0-9.0) Ur Specific Wake (1.000-1.035) Urine Protein (Negative) mg/dL Urine Glucose (UA) (Negative) mg/dL Urine Ketones (Negative) mg/dL Urine Occult Blood (Negative) mg/dL Urine Nitrate (Negative) Urine Bilirubin (Negative) mg/dL Urine Urobilinogen mg/dL Ur Leukocyte Esterase (Negative) /uL Urine RBC (0-3) /hpf Urine WBC (0-4) /hpf Ur Squamous Epith Cells (0-4) /hpf Urine Bacteria (0) /hpf Hyaline Casts (0-2) /lph Urine Mucus (None) /hpf Ur Culture Indicated? POC Troponin I < 0.02 (0.00-0.08) 07/08/22 07/08/22 07/08/22 Range/Units 17:28 18:18 18:45 WBC (4.5-11.0) K/mcL RBC (4.63-6.08) M/mcL Hgb (13.7-17.5) g/dL Hct (40.1-51.0) % MCV (80.0-100.0) fL MCH (26.0-34.0) pg MCHC (31.0-36.0) g/dL RDW (11.5-14.5) % Plt Count (140-440) K/mcL MPV (8.8-12.5) fL Immature Gran % (Auto) (0.0-0.5) % Neut % (Auto) (38.0-78.0) % Lymph % (Auto) (15.5-49.0) % Miner % (Auto) (1.0-12.0) % Eos % (Auto) (0.0-7.0) % Baso % (Auto) (0.0-2.0) % Lymph # (Auto) (1.50-4.80) K/mcL Miner # (Auto) (0.10-0.90) K/mcL Eos # (Auto) (0.00-0.70) K/mcL Baso # (Auto) (0.00-0.30) K/mcL Immature Gran # (0.00-0.05) K/mcl Absolute Neutrophils (1.80-8.00) K/mcL POC VBG pH 7.41 (7.32-7.42) POC VBG pCO2 at Temp 43.6 (41-51) POC VBG pO2 43 H (25-40) POC VBG HCO3 27.6 (24-28) POC VBG Total CO2 29.0 (25-29) POC Venous O2 Sat 79.0 H (40-70) POC VBG Base Excess 3.0 H (-2-2) VBG Lactic Acid 3.1 H 2.6 H (0.5-2) Total Bilirubin (0.1-1.0) mg/dL Direct Bilirubin (<0.3) mg/dL AST (<40) U/L ALT (<40) U/L Alkaline Phosphatase (39-117) U/L NT-Pro-B Natriuret Pep (<125.0) pg/mL Total Protein (5.9-8.4) gm/dL Albumin (3.2-5.2) gm/dL Globulin (2.2-3.7) gm/dL Procalcitonin (<0.10) ng/mL Urine Color Yellow Urine Appearance Hazy A (Clear) Urine pH 5.0 (5.0-9.0) Ur Specific Wake 1.019 (1.000-1.035) Urine Protein 30 A (Negative) mg/dL Urine Glucose (UA) 50 A (Negative) mg/dL Urine Ketones Negative (Negative) mg/dL Urine Occult Blood Negative (Negative) mg/dL Urine Nitrate Negative (Negative) Urine Bilirubin Negative (Negative) mg/dL Urine Urobilinogen Negative mg/dL Ur Leukocyte Esterase Negative (Negative) /uL Urine RBC 1 (0-3) /hpf Urine WBC 2 (0-4) /hpf Ur Squamous Epith Cells 2 (0-4) /hpf Urine Bacteria None (0) /hpf Hyaline Casts 1 (0-2) /lph Urine Mucus Few A (None) /hpf Ur Culture Indicated? No POC Troponin I (0.00-0.08) ED POC Tests ED POC Tests: BETTY - Influenza A Negative BETTY - Influenza B Negative BETTY - SARS Antigen Negative EKG Data EKG #1: EKG attestation: Yes I reviewed and interpreted this EKG. EKG results narrative: Paced rhythm with a rate of 106, MI 145, QRS 134, QTc of 460, T wave flattening in leads III and aVF, and absence of ST elevation or depression. Discharge Plan Patient/Caregiver Discharge Instructions Pt seen by FRONT DESK/PA only: No Clinical Impression: SOB (shortness of breath), Sepsis Patient Disposition: Xfer As Inpt ([facility]) Follow up with: Christiano Casey DO [Primary Care Provider] - Prescriptions: No Action cholecalciferol (vitamin D3) 1,000 unit tablet 1,000 unit PO QDAY Qty: 1 0RF ascorbic acid (vitamin C) 500 mg tablet 500 mg PO QDAY Qty: 1 0RF diclofenac sodium 1 % gel 2 g TOPICAL HS Qty: 100 3RF Novolog U-100 Insulin aspart 100 unit/mL solution 15 unit SUB-Q .COMPLEX Qty: 60 3RF Rx Instructions: 15 units plus sliding scale subcut 3 times daily with meals, MDD 81 units torsemide 20 mg tablet 40 mg PO DAILY Qty: 180 3RF Eliquis 5 mg tablet 5 mg PO BID Qty: 180 3RF pramipexole 1 mg tablet 4 mg PO HS Qty: 360 3RF testosterone [AndroGel] 20.25 mg/1.25 gram (1.62 %) gel in metered-dose pump 1 pump topical QDAY Qty: 75 0RF Rx Instructions: apply 1 pump amount over max area of ONE upper arm and shoulder Start 2 weeks after last dose of IM testosterone aripiprazole 2 mg tablet 2 mg PO QHS Qty: 90 1RF Toujeo Max U-300 SoloStar 300 unit/mL (3 mL) insulin pen 300 unit subcut DAILY 0RF albuterol sulfate 90 mcg/actuation HFA aerosol inhaler 2 puff INHALATION TIDP PRN (Reason: shortness of breath or wheezing) Qty: 26 3RF Benlysta 400 mg recon soln 1,400 mg IV Q4W Qty: 250 0RF levothyroxine [Synthroid] 50 mcg tablet 50 mcg PO QDAY Qty: 90 3RF (DME) Lift chair See Rx Instructions .Route .MEDSUPPLY Qty: 1 0RF Rx Instructions: As directed morphine [MS Contin] 15 mg tablet extended release 15 mg PO Q12H Qty: 56 0RF hydrocodone-acetaminophen 10-325 mg tablet 2 tab PO TID PRN (Reason: pain) Qty: 168 0RF sertraline 100 mg tablet 100 mg PO QDAY Qty: 90 3RF (DME) insulin syringe,safetyneedle 1 mL 31 gauge x 15/64" syringe See Rx Instructions .ROUTE .MEDSUPPLY Qty: 300 1RF Rx Instructions: Use with insulin TID Trulicity 3 mg/0.5 mL pen injector 3 mg subcut QWEEK Qty: 9 3RF mycophenolate mofetil [CellCept] 500 mg tablet 1,500 mg PO BID Patient Comments: Patient was confused and is still taking this, added back on list, RX from Dr. Figueroa~MS,[facility] dulaglutide [Trulicity] 3 mg/0.5 mL pen injector 3 mg subcut WEEKLY 0RF Rx Instructions: Taken on Sunday (DME) oxygen See Rx Instructions .Route .MEDSUPPLY Qty: 1 0RF Rx Instructions: Wear daily hydroxychloroquine 200 mg tablet 200 mg PO BID Hold Instructions: Doctor's Order amitriptyline 25 mg tablet 25 mg PO QHS Qty: 90 1RF Rx Instructions: increase in 25 mg increments weekly if needed to max of 100 mg qhs Toujeo Max U-300 SoloStar 300 unit/mL (3 mL) insulin pen 150 unit subcut QDAY Qty: 6 5RF (DME) diabetic shoes See Rx Instructions .Route .MEDSUPPLY Qty: 1 0RF Rx Instructions: As directed (DME) Briefs, Adult-Extra Large Misc See Rx Instructions .Route Qty: 28 2RF Rx Instructions: As directed diphenhydramine HCl 50 mg capsule 50 mg PO QHS isosorbide mononitrate 30 mg tablet extended release 24 hr 30 mg PO BID (DME) urine strainer See Rx Instructions .Route .MEDSUPPLY Qty: 1 0RF Rx Instructions: As directed silver sulfadiazine [Silvadene] 1 % cream 1 applic TOPICAL BID Qty: 50 0RF Rx Instructions: apply a 1.5 mm thickness to boils spironolactone 50 mg tablet 100 mg PO QAM Qty: 180 3RF glucagon 1 mg/0.2 mL solution 1 mg subcut Q20M PRN (Reason: hypoglycemia) Qty: 0.2 1RF Rx Instructions: until target blood sugar attained prednisone 5 mg tablet 5 mg PO QDAY Rx Instructions: Increase to 2 when in pain pantoprazole 40 mg tablet,delayed release (DR/EC) 40 mg PO QDAY fluticasone furoate-vilanterol [Breo Ellipta] 100-25 mcg/dose blister with de vice 1 inh inhalation Q24H Qty: 60 3RF albuterol sulfate 2.5 mg /3 mL (0.083 %) solution for nebulization 2.5 mg inhalation Q6H PRN (Reason: shortness of breath or wheezing) Qty: 360 3RF
[2022-07-08] MEDS ORDERED: 0.9 % SODIUM CHLORIDE 250 ML IV ONE ×2 (14:22→15:59)
[2022-07-08 15:31] LABS: Basophils # (Auto) 0.01 K/mcL (0.00-0.30); Basophils % (Auto) 0.1 % (0.0-2.0); Eosinophils # (Auto) 0.02 K/mcL (0.00-0.70); Eosinophils % (Auto) 0.2 % (0.0-7.0); Hematocrit 39.1 % (40.1-51.0); Hemoglobin 11.9 g/dL (13.7-17.5); Lymphocytes # (Auto) 0.28 K/mcL (1.50-4.80); Lymphocytes % (Auto) 2.7 % (15.5-49.0); Mean Cell Volume 97.5 fL (80.0-100.0); Mean Corpuscular HGB Conc 30.4 g/dL (31.0-36.0); Mean Platelet Volume 10.4 fL (8.8-12.5); Monocytes % (Auto) 0.9 % (1.0-12.0); Neutrophils % (Auto) 95.6 % (38.0-78.0); Platelet Count 235 K/mcL (140-440); RBC 4.01 M/mcL (4.63-6.08); Red Cell Distribution Width 14.1 % (11.5-14.5); WBC 10.5 K/mcL (4.5-11.0)
[2022-07-08 15:41] LABS: proBNP 306.1 pg/mL (<125.0)
[2022-07-08 15:43] LABS: Bilirubin,Direct 0.3 mg/dL (<0.3); Bilirubin,Total 0.7 mg/dL (0.1-1.0); Globulin 2.7 gm/dL (2.2-3.7)
[2022-07-08] MEDS ORDERED: VANCOMYCIN 2,000 MG in 0.9 % SODIUM CHLORIDE 500 ML IV ONE (15:59)
[2022-07-08] MEDS ORDERED: PIPERACILLIN SODIUM/TAZOBACTAM 3.375 GM in DEXTROSE 5% IN WATER 50 ML IV ONE (16:01)
[2022-07-08] MEDS ORDERED: 0.9 % SODIUM CHLORIDE 500 ML IV ONE ×2 (16:52→18:44)
[2022-07-08 19:06] LABS: Appearance,Urine HAZY (Clear); Bilirubin,Urine Negative (Negative); Color,Urine YELLOW; Culture Indicated,Urine No; Glucose,Urine (UA) 50 mg/dL (Negative); Ketones,Urine Negative (Negative); Leukocyte Esterase,Urine Negative /uL (Negative); Mucus,Urine FEW /hpf; Nitrate,Urine Negative (Negative); Protein,Urine 30 mg/dL (Negative); Specific Gravity,Urine 1.019 (1.000-1.035); Urine Blood Negative (Negative); Urine Hyaline Cast 1 /lph (0-2); Urine RBC 1 /hpf (0-3); Urine Squamous Epithelial Cell 2 /hpf (0-4); Urine WBC 2 /hpf (0-4); Urobilinogen,Urine Negative
[2022-07-08 20:18] LABS: Band Neutrophils % 18 % (0-10); Hypochromasia 1+ (None Seen); Lymphocytes % 2 % (15-49); Monocytes % (Manual) 3 % (1-12); Platelet Estimate NORMAL (Normal); RBC Morphology ABNORMAL (Normal); Segmented Neutrophils % 77 % (38-78)
[2022-07-08 20:34] LABS: ALT/SGPT 32 U/L (<40); AST/SGOT 32 U/L (<40); Albumin 3.4 gm/dL (3.2-5.2); Albumin/Globulin Ratio 1.5 (1.0-2.3); Alkaline Phosphatase 129 U/L (39-117); Bilirubin,Total 0.6 mg/dL (0.1-1.0); Blood Urea Nitrogen 38 mg/dL (8-23); Calcium 8.2 mg/dL (8.6-10.4); Carbon Dioxide 26 mmol/L (22-30); Chloride 98 mmol/L (96-108); Globulin 2.3 gm/dL (2.2-3.7); Glomerular Filtration Rate 43; Glucose 252 mg/dL (70-105)
--- NOTE | 2022-07-08 21:49 | Internal Med History&Physical ---
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 Eos % (Auto) 0.2 Baso % (Auto) 0.1 Lymph # (Auto) 0.28 L [place] # (Auto) 0.10 Eos # (Auto) 0.02 Baso # (Auto) 0.01 Seg Neutrophils % Band Neutrophils % Lymphocytes % Monocytes % (Manual) Immature Gran # 0.05 Absolute Neutrophils 10.07 H Platelet Estimate RBC Morphology Hypochromasia POC VBG pH 7.38 POC VBG pCO2 at Temp 51.9 H POC VBG pO2 15 L POC VBG HCO3 30.6 H POC VBG Total CO2 32.0 H POC Venous O2 Sat 19.0 L POC VBG Base Excess 5.0 H* VBG Lactic Acid 5.2 H* Sodium Potassium Chloride Carbon Dioxide Anion Gap BUN Creatinine GFR Calculation Glucose Calcium Total Bilirubin Direct Bilirubin AST ALT Alkaline Phosphatase NT-Pro-B Natriuret Pep Total Protein Albumin Globulin Albumin/Globulin Ratio Procalcitonin Urine Color Urine Appearance Urine pH Ur Specific [place] Urine Protein Urine Glucose (UA) Urine Ketones Urine Occult Blood Urine Nitrate Urine Bilirubin Urine Urobilinogen Ur Leukocyte Esterase Urine RBC Urine WBC Ur Squamous Epith Cells Urine Bacteria Hyaline Casts Urine Mucus Ur Culture Indicated? POC Troponin I A/P Narrative A/P Narrative: A: *severe Sepsis(tachycardia/tachypnea/bandemia) w/Hyperlactatemia: Unknown etio logy -lactate 5.2 on admit -UA/chest/abd/pelvis negative, no wounds -flu/covid neg *Hypotension: Responded to IV fluid in the ED *JUAN on CKD III: possible ATN *COPD(4L@home)/Pulmonary Fibrosis, chronic respiratory failure: *DM2: With hyperglycemia -a1c *Obesity: BMI 43 *CLARY w/cpap: *Paroxysmal A-fib s/p PPM: *Anemia, chronic: *SLE/Biliary cirrhosis: on prednisone, normally 10mg qd but currently on taper and at 30mg *Chronic back pain: Opioid dependent *GERD: *Depression/anxiety: *peripheral edema: On diuretics *h/o DVT: on eliquis P: -broad IV abx, pending BC/SC, mrsa screen -IVF, follow-up lactate -Monitor renal function/UOP/I&O -Avoid nephrotoxic meds -Trend PCT -quad -supp O2, IS, prn nebs, cont home IH's -Basal and SSI -hold diuretics for hypotension -cont home prednisone with stress dosing -Home medication reconciliation -PT/OT -CM for placement -ppx: home eliquisb / home PPI Time Spent With Patient Time: Total time spent is greater than 50% in coordination of care (as documented) at patient's floor/unit and/or counseling patient: Initial: Total time with patient: 75 - 90 minutes
[2022-07-08] MEDS ORDERED: HYDROCORTISONE SOD SUCC 100 MG VIAL IV SCH (21:53)
[2022-07-08] MEDS ORDERED: POTASSIUM CHLORIDE 40 MEQ in DEXTROSE 5% IN WATER 500 ML IV PRN (22:45)
[2022-07-08] MEDS ORDERED: POLYETHYLENE GLYCOL 3350 17 GM PACKET PO PRN (22:45)
[2022-07-08] MEDS ORDERED: MAGNESIUM SULFATE 2 GM/50 ML BAG IV PRN (22:45)
[2022-07-08] MEDS ORDERED: ACETAMINOPHEN 325 MG TABLET PO PRN (22:45)
[2022-07-08] MEDS ORDERED: ONDANSETRON 4 MG/2 ML VIAL IV PRN (22:45)
[2022-07-08] MEDS ORDERED: DEXTROSE 50% 50 ML VIAL IV PRN (22:45)
[2022-07-08] MEDS ORDERED: DEXTROSE 31 GM ORAL.SUSP PO PRN (22:45)
[2022-07-08] MEDS ORDERED: morphine 4 MG/ML VIAL IV PRN (22:45)
[2022-07-08] MEDS ORDERED: METOPROLOL TARTRATE 5 MG/5 ML VIAL IV PRN (22:45)
[2022-07-08] MEDS ORDERED: SENNOSIDES 1 TABLET PO PRN (22:45)
[2022-07-08] MEDS ORDERED: HYDROcodone/APAP 5/325MG TABLET PO PRN (22:45)
[2022-07-08] MEDS ORDERED: VANCOMYCIN PER PHARMACY IV ONE (22:45)
[2022-07-08] MEDS ORDERED: POTASSIUM CHLORIDE 20 MEQ TABLET PO PRN ×2 (22:45)
[2022-07-08] MEDS ORDERED: IPRATROPIUM/ALBUTEROL 3 ML AMPUL.NEB NEB PRN (22:45)
[2022-07-08 23:16] LABS: Hemoglobin A1C 10.9 % Hgb (4.0-6.0)
[2022-07-08] MEDS ORDERED: HYDROcodone/APAP 5/325MG TABLET PO ONE (23:45)
[2022-07-08] MEDS: PIPERACILLIN SODIUM/TAZOBACTAM 3.375 GM in DEXTROSE 5% IN WATER 50 ML IV SCH (23:49)
[2022-07-08] MEDS: INSULIN LISPRO 1 UNIT/0.01 ML UNIT SQ SCH (23:51)
[2022-07-08] MEDS ORDERED: INSULIN LISPRO 1 UNIT/0.01 ML UNIT SQ ONE (23:57)
[2022-07-08] MEDS: 0.9 % SODIUM CHLORIDE 1,000 ML IV SCH (23:58)
[2022-07-09] MEDS ORDERED: HYDROCORTISONE SOD SUCC 100 MG VIAL ONE (00:38)
[2022-07-09] MEDS: HYDROCORTISONE SOD SUCC 100 MG VIAL IV SCH ×4 (00:43→22:00)
[2022-07-09] MEDS: 0.9 % SODIUM CHLORIDE 10 ML SYRINGE IV SCH ×4 (00:44→22:00)
[2022-07-09] MEDS: PIPERACILLIN SODIUM/TAZOBACTAM 3.375 GM in DEXTROSE 5% IN WATER 50 ML IV SCH ×5 (02:00→23:52)
[2022-07-09] MEDS ORDERED: PIPERACILLIN SODIUM/TAZOBACTAM 3.375 GM VIAL IV ONE ×2 (02:06→02:07)
--- NOTE | 2022-07-09 04:33 | XRay Report ---
CLINICAL INFORMATION: Dyspnea COMPARISON: 03/01/2022 TECHNIQUE: Portable FINDINGS: Moderate cardiomegaly is unchanged. Pacemaker leads in stable satisfactory position. Mediastinum and pulmonary vessels are normal. Minor bibasilar fibrosis is similar previous study-no definite new pulmonary abnormalities. No effusions. IMPRESSION: No acute disease Interpreted and Authenticated by: Christiano Leal 07/09/22
--- NOTE | 2022-07-09 04:34 | Cat Scan Report ---
CLINICAL INFORMATION: Headache COMPARISON: Brain MRI 07/24/2013 TECHNIQUE: 2.5 mm helical slices were obtained in the skull base to vertex. Following reconstruction, axial reformatted images were reviewed at bone and parenchymal windows. The exam was performed using radiation dose optimization techniques including, but not limited to, automated exposure control, adjustment of the mA and/or kV according to patient size and use of iterative reconstruction technique. FINDINGS: The ventricles, sulci, fissures, and cisterns are symmetrically enlarged compatible with mild age-related atrophy. No extra-axial fluid collections are identified. Mild patchy chronic ischemic changes, in the deep cerebral white matter, are expected for age. There is no hemorrhage, mass effect, or edema. Bone windows show no osseous abnormality. IMPRESSION: Mild atrophy and chronic ischemic changes in the deep cerebral white matter-expected for age. No acute findings Interpreted and Authenticated by: Christiano Leal 07/09/22
--- NOTE | 2022-07-09 05:27 | Cat Scan Report ---
CLINICAL INFORMATION: Sepsis COMPARISON: Abdomen and pelvic CT 01/18/2022. Chest CT 11/13/2018 and 09/26/2021 TECHNIQUE: 0.625 mm helical slices were obtained from the lung apices through the subtrochanteric regions of the femurs. Following reconstruction, 2.5 mm sagittal, coronal and axial reformatted images were processed and reviewed at multiple windows and levels. 7 mm MIP reconstructions were obtained through the lungs to optimize nodule detection.The exam was performed using radiation dose optimization techniques including, but not limited to, automated exposure control, adjustment of the mA and/or kV according to patient size and use of iterative reconstruction technique. FINDINGS: Pulmonary parenchymal windows show 17 mm pleural-based nodule in the superior segment right lower lobe on image 80. This has been stable since 2019 and should be considered a benign granuloma or benign subpulmonic lymph node. Scattered fibrosis in the right upper and both lower lobes is unchanged. There are no infiltrates or new pulmonary abnormalities.. Pleural spaces are unremarkable-no effusions. Mediastinal windows show the heart is mildly enlarged. Pacemaker and leads in stable satisfactory position. There is calcification of the mitral annulus. The noncontrasted central pulmonary arteries are mildly enlarged: main pulmonary diameter 3.7 cm suggesting pulmonary hypertension-no change. Noncontrasted thoracic aorta is normal diameter. There is no adenopathy in the mediastinal, hilar or axillary regions. Esophagus is grossly normal. 22 mm low-attenuation lesion in the inferior left thyroid is stable since 2019 should be considered benign adenoma. Abdominal images show the gallbladder is surgically absent. Common bile duct is normal: 5 mm. Cirrhotic changes noted featuring slight decrease in liver size with irregular cortical surface and inhomogeneous attenuation. There is also asymmetric enlargement of the caudate lobe. No focal hepatic lesions. Both adrenal glands, spleen, pancreas and aorta, including aortic branches, are normal in size, configuration and attenuation without focal lesion. There is no free air, free fluid or adenopathy. Both noncontrasted kidneys are normal and symmetric in size, position, configuration and attenuation: The left is 12 cm in length and the right is also 12 cm in length. A 17 mm fat-containing benign angiomyolipoma, in the anterior mid right kidneys, is stable. There is a 6 mm nonobstructing stone in a inferior calyx of the right kidney and a 4 mm nonobstructing stone mid calyx left kidney. Bilateral renal cysts are stable. Pelvic images show normal urinary bladder, prostate and seminal vesicles. Insufflation bulbar penile prostheses anterior to the urinary bladder as previously seen. The stomach, small bowel, appendix region and large bowel are grossly normal. Bone windows show no osseous abnormality throughout the chest, abdomen or pelvis. There is moderate atrophy of the right subscapularis muscle with fat replacement. There is also atrophy of the left gluteus musculature with fat replacement. No change IMPRESSION: 1. No acute disease throughout the chest, abdomen or pelvis. No source for sepsis. 2. 18 millimeter benign fat-containing angiomyolipoma mid right kidney stable. 3. Nonobstructing stones in the calyces of both kidneys stable 4. Moderate cirrhosis. No evidence of portal hypertension or ascites. 5. Mild chronic bronchitis. Mild enlargement central pulmonary arteries suggests associated pulmonary hypertension Interpreted and Authenticated by: Christiano Leal 07/09/22
[2022-07-09 07:18] LABS: Hematocrit 37.6 % (40.1-51.0); Hemoglobin 10.5 g/dL (13.7-17.5); Mean Cell Volume 105.6 fL (80.0-100.0); Mean Corpuscular HGB Conc 27.9 g/dL (31.0-36.0); Mean Platelet Volume 10.5 fL (8.8-12.5); Platelet Count 183 K/mcL (140-440); RBC 3.56 M/mcL (4.63-6.08); Red Cell Distribution Width 14.3 % (11.5-14.5); WBC 17.1 K/mcL (4.5-11.0)
[2022-07-09] MEDS: 0.9 % SODIUM CHLORIDE 1,000 ML IV SCH ×2 (07:29→09:27)
[2022-07-09] MEDS ORDERED: PANTOPRAZOLE 40 MG VIAL IV SCH (07:30)
[2022-07-09] MEDS: INSULIN LISPRO 1 UNIT/0.01 ML UNIT SQ SCH ×8 (07:45→22:55)
--- NOTE | 2022-07-09 07:50 | Internal Med Progress Note ---
SUBJECTIVE Subjective Patient information: Note initiated : 07/09/22 at 7:43 am Service Date, if different from initiated Date: [] Patient: Ashish Rainey a 71 y/o M admitted on 07/08/22 for Fever, SOB. Chief Complaint: [] Interval history: History of present illness: Mr. Rainey is a 71 year old M Presents the ED with fever chills shortness of breath headache shakiness Per family patient had a temperature of 101 at home. Patient states that he was feeling fine yesterday and went to bed feeling okay. Woke up this morning about 4 AM with a bad headache and had fevers and shaking. He did not have any neck stiffness nausea vomiting light sensitivity or altered mental status. He felt weak. He has a chronic cough and there is been no change in that. Has chronic shortness of breath and feels that is been a little bit worse. He wears 4 L of nasal cannula day and night for COPD and pulmonary fibrosis. is concerned for UTI. She says he has been urinating less. Rapid flu and COVID in the ED was negative. Patient reports no wounds on his body. In the ED he was tachycardic on admit and eventually noted to be calm hypotonic tensive but responded to IV fluids. He also became hypoxic at 87% and put on nasal cannula. He is tachypneic in the 20s. Patient had a lactate of 5.2 that improved to 2.6 with IV fluids and a procalcitonin of 0.4. His white blood cell count was essentially normal but he had a bandemia of 18%. And his BUN and creatinine were elevated with a 38/1.6. Glucose also elevated at 252. Source of infection not identified on chest x-ray and UA and so a CT chest abdomen pelvis were done and verbal report to the ED physician was unremarkable. EKG ventricular paced. 3/5 Patient poor sleep. But otherwise feeling a little bit better. Blood glucose quite high this morning. Clarify home insulin regimen. Significant leukocytosis as expected given the bandemia yesterday. Bandemia is now improved. Lactic acidosis improved. Renal function no improvement. A1c 10.9. Urine output mediocre. Continue aggressive IV fluids. 1 blood culture positive thus far for gram-positive cocci in clusters of both bottles of 1 set. Complains of headaches. And states now he has some diarrhea, says he goes back and forth between diarrhea and constipation Review of Systems: chronic abdominal pain. Denies nausea/vomiting/chest /diarrhea.Otherwise see above. PHYSICAL EXAM General: Alert, Awake, No acute Distress, obese Eyes/N/T: EOMI, no scleral icterus, Head/Neck: neck supple, full ROM, CV: RRR, No murmurs, Pulm: Clear b/l, no wheezing/rhonchi/rales, no respiratory distress Abd: soft, nontender, +BS x4 Ext: no clubbing/cyanosis, LLE edema 2+ and RLE 1+ edema, nontender, venous stasis Neuro: Alert, no focal deficits, moves all extremities, sensations intact b/l upper/lower Psychiatric: Skin: warm/dry, normal color Constitutional Vitals: Vital Signs Temp Pulse Resp BP Pulse Ox O2 Del Method O2 Flow Rate 98.2 F 84 25 H 135/78 96 Nasal Cannula 2.5 07/09/22 04:00 07/08/22 22:45 07/09/22 06:00 07/09/22 06:00 07/09/22 06:00 07/09/22 06:18 07/09/22 06:18 Period Temp Pulse Resp BP Sys/Corey Pulse Ox O2 Del Method O2 Flow Rate Last 24 Hr 98.0 F-98.4 F 84-131 15-31 74-143/41-87 87-100 Nasal Cannula- Room Air 2.5-4 Intake and Output 07/08/22 07/09/22 07/09/22 19:59 03:59 11:59 Intake Total 1300 910 290 Output Total 350 300 Balance 1300 560 -10 Weight 142.882 kg 151.273 kg Intake & Output: Intake & Output 07/08/22 07/09/22 07/09/22 19:59 03:59 11:59 Intake Total 1300 910 290 Output Total 350 300 Balance 1300 560 -10 Weight 142.882 kg 151.273 kg Intake: IV 1300 550 50 Sodium Chloride 0.9% 250 ml @ 250 Wide Open IV BOLUS ONE Rx#: [id number] Sodium Chloride 0.9% 500 ml @ 1000 Wide Open IV [facility] Rx#: [id number] Zosyn 3.375 gm In Dextrose 5% 50 50 50 in Water 50 ml @ 100 mls/hr IV Q6H [facility] Rx#:[id number] Vancomycin 2,000 mg In Sodium 500 Chloride 0.9% 500 ml @ 250 mls/ hr IV ONCE ONE Rx#:[id number] Oral 360 240 Output: Void Amount 350 300 Other: Urine Appearance Clear Urine Color Light Reina Yellow Stool Size Large Stool Color Brown Stool Consistency Loose # Voids 2 OBJ DATA Labs 07/09/22 05:31 07/08/22 17:28 Labs: Abnormal Lab Results 07/09/22 07/08/22 07/08/22 05:31 22:48 22:04 WBC 17.1 H RBC 3.56 L Hgb 10.5 L Hct 37.6 L MCV 105.6 H MCHC 27.9 L Neut % (Auto) Lymph % (Auto) [place] % (Auto) Lymph # (Auto) Band Neutrophils % Lymphocytes % Absolute Neutrophils RBC Morphology Hypochromasia POC VBG pCO2 at Temp POC VBG pO2 POC VBG HCO3 POC VBG Total CO2 POC Venous O2 Sat POC VBG Base Excess VBG Lactic Acid 2.8 H BUN Creatinine Glucose Hemoglobin A1c 10.9 H Calcium Direct Bilirubin AST Alkaline Phosphatase NT-Pro-B Natriuret Pep Total Protein Procalcitonin Urine Appearance Urine Protein Urine Glucose (UA) Urine Mucus 07/08/22 07/08/22 07/08/22 18:45 18:18 17:28 WBC RBC Hgb Hct MCV MCHC Neut % (Auto) Lymph % (Auto) [place] % (Auto) Lymph # (Auto) Band Neutrophils % Lymphocytes % Absolute Neutrophils RBC Morphology Hypochromasia POC VBG pCO2 at Temp POC VBG pO2 43 H POC VBG HCO3 POC VBG Total CO2 POC Venous O2 Sat 79.0 H POC VBG Base Excess 3.0 H VBG Lactic Acid 2.6 H BUN 38 H Creatinine 1.6 H Glucose 252 H Hemoglobin A1c Calcium 8.2 L Direct Bilirubin AST Alkaline Phosphatase 129 H NT-Pro-B Natriuret Pep Total Protein 5.7 L Procalcitonin Urine Appearance Hazy A Urine Protein 30 A Urine Glucose (UA) 50 A Urine Mucus Few A 07/08/22 07/08/22 07/08/22 17:28 14:33 14:33 WBC RBC Hgb Hct MCV MCHC Neut % (Auto) Lymph % (Auto) [place] % (Auto) Lymph # (Auto) Band Neutrophils % 18 H Lymphocytes % 2 L Absolute Neutrophils RBC Morphology Abnormal A Hypochromasia 1+ A POC VBG pCO2 at Temp POC VBG pO2 POC VBG HCO3 POC VBG Total CO2 POC Venous O2 Sat POC VBG Base Excess VBG Lactic Acid 3.1 H BUN Creatinine Glucose Hemoglobin A1c Calcium Direct Bilirubin AST Alkaline Phosphatase NT-Pro-B Natriuret Pep Total Protein Procalcitonin 0.42 H Urine Appearance Urine Protein Urine Glucose (UA) Urine Mucus 07/08/22 07/08/22 07/08/22 14:33 14:33 14:33 WBC RBC 4.01 L Hgb 11.9 L Hct 39.1 L MCV MCHC 30.4 L Neut % (Auto) 95.6 H Lymph % (Auto) 2.7 L [place] % (Auto) 0.9 L Lymph # (Auto) 0.28 L Band Neutrophils % Lymphocytes % Absolute Neutrophils 10.07 H RBC Morphology Hypochromasia POC VBG pCO2 at Temp POC VBG pO2 POC VBG HCO3 POC VBG Total CO2 POC Venous O2 Sat POC VBG Base Excess VBG Lactic Acid BUN Creatinine Glucose Hemoglobin A1c Calcium Direct Bilirubin 0.3 H AST 42 H Alkaline Phosphatase 169 H NT-Pro-B Natriuret Pep 306.1 H Total Protein Procalcitonin Urine Appearance Urine Protein Urine Glucose (UA) Urine Mucus 07/08/22 14:05 WBC RBC Hgb Hct MCV MCHC Neut % (Auto) Lymph % (Auto) [place] % (Auto) Lymph # (Auto) Band Neutrophils % Lymphocytes % Absolute Neutrophils RBC Morphology Hypochromasia POC VBG pCO2 at Temp 51.9 H POC VBG pO2 15 L POC VBG HCO3 30.6 H POC VBG Total CO2 32.0 H POC Venous O2 Sat 19.0 L POC VBG Base Excess 5.0 H* VBG Lactic Acid 5.2 H* BUN Creatinine Glucose Hemoglobin A1c Calcium Direct Bilirubin AST Alkaline Phosphatase NT-Pro-B Natriuret Pep Total Protein Procalcitonin Urine Appearance Urine Protein Urine Glucose (UA) Urine Mucus Meds: Medications Acetaminophen (Acetaminophen 325 Mg Tablet) 650 mg PO Q6HP PRN; Protocol PRN Reason: Per Pain Protocol/Fever > 101 Hydrocodone Bitart/Acetaminophen (Hydrocodone/Apap 5/325mg Tablet) 1 tab PO Q4HP PRN PRN Reason: PAIN LEVEL 3-6 Last Admin: 07/08/22 23:48 Dose: 1 tab Albuterol/Ipratropium (Ipratropium/Albuterol 3 Ml Ampul.Neb) 3 ml NEB Q4HP PRN PRN Reason: Shortness Of Breath Dextrose (Dextrose 50% 50 Ml Vial) 0 ml IV UD PRN PRN Reason: Per Sliding Scale Diagnostic Test (Pha) (Accu-Chek 1 Each Strip) 1 each FS ACHS [facility] Last Admin: 07/08/22 23:51 Dose: 1 each Docusate Sodium (Docusate Sodium 100 Mg Capsule) 100 mg PO BID [place] Glucose (Dextrose 31 Gm Oral.Susp) 15 gm PO PRN PRN PRN Reason: Hypoglycemia Hydrocortisone Sodium Succinate (Hydrocortisone Sod Succ 100 Mg Vial) 50 mg IV Q8 [facility] Last Admin: 07/09/22 05:59 Dose: 50 mg Potassium Chloride 40 meq/ (Dextrose) 520 mls @ 130 mls/hr IV UD PRN PRN Reason: Potassium < 3 Magnesium Sulfate (Magnesium Sulfate) 2 gm in 50 mls @ 50 mls/hr IV UD PRN PRN Reason: Magnesium </= 1.6 Sodium Chloride (Sodium Chloride 0.9%) 1,000 mls @ 125 mls/hr IV .Q8H [facility] Stop: 07/09/22 14:44 Last Admin: 07/09/22 07:29 Dose: Not Given Piperacillin Sod/Tazobactam (Sod 3.375 gm/ Dextrose) 50 mls @ 100 mls/hr IV Q6H [facility]; Protocol Insulin Human Lispro (Insulin Lispro 1 Unit/0.01 Ml Unit) 0 unit SQ [facility]; Protocol Last Admin: 07/08/22 23:51 Dose: 10 units Metoprolol Tartrate (Metoprolol Tartrate 5 Mg/5 Ml Vial) 5 mg IV Q2HP PRN PRN Reason: Tachyarrhythmias HR>110 Morphine Sulfate (Morphine 4 Mg/Ml Vial) 0 mg IV Q3HP PRN PRN Reason: Pain Ondansetron HCl (Ondansetron 4 Mg/2 Ml Vial) 4 mg IV Q4HP PRN PRN Reason: Nausea And Vomiting Pantoprazole Sodium (Pantoprazole 40 Mg Vial) 40 mg IV QAMAC [facility] Polyethylene Glycol (Polyethylene Glycol 3350 17 Gm Packet) 17 gm PO DAILYP PRN PRN Reason: Constipation Potassium Chloride (Potassium Chloride 20 Meq Tablet) 40 meq PO UD PRN PRN Reason: Potssium is 3-3.5 Potassium Chloride (Potassium Chloride 20 Meq Tablet) 40 meq PO UD PRN PRN Reason: Potassium < 3 Senna (Sennosides 1 Tablet) 2 tab PO DAILYP PRN PRN Reason: Constipation Sodium Chloride (0.9 % Sodium Chloride 10 Ml Syringe) 10 ml IV Q8 [place] Last Admin: 07/09/22 06:26 Dose: 10 ml Vancomycin HCl (Vancomycin Per Pharmacy) 1 order IV ONCE ONE; Protocol Stop: 07/08/22 22:46 Last Admin: 07/08/22 23:49 Dose: Not Given A/P Narrative A/P Narrative: A: *severe Sepsis(tachycardia/tachypnea/leukocytosis-bandemia) w/Hyperlactatemia: 2/2 bacteremia -lactate 5.2 on admit -UA/chest/abd/pelvis negative, no wounds -flu/rsv/covid neg *Bacteremia (GBC in clusters): Source likely break in the skin given poor skin condition and immunosuppressive's *Hypotension: Responded to IV fluid in the ED *JUAN on CKD III, suspect ATN: -low uop for weight *COPD(4L@home)/Pulmonary Fibrosis, chronic respiratory failure: *DM2: With hyperglycemia -a1c 10.9 *Obesity: BMI 43 *CLARY w/cpap: *Paroxysmal A-fib s/p PPM: *Anemia, chronic: *SLE/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: -cellept, prednisone - normally 10mg qd but currently on taper and at 30mg *Immunosuppressed: on cellcept and prednisone *Chronic back pain: Opioid dependent *GERD: *Depression/anxiety: cont SSRI *Hypothyroidism: Continue levothyroxine *peripheral edema: On diuretics *h/o DVT: on eliquis P: -vanc/zosyn, pending BC/SC, mrsa screen neg -serial BC -IVFs, follow-up lactate -Monitor renal function/UOP/strict I&O -Avoid nephrotoxic meds -Trend PCT - urine studies -supp O2, IS, prn nebs, cont home IH's -Basal and SSI -hold diuretics for now -cont home prednisone with stress dosing -cont BB -PT/OT -CM for placement -ppx: home eliquis / home PPI Time Spent With Patient Time: Total time spent is greater than 50% in coordination of care (as documented) at patient's floor/unit and/or counseling patient: Subsequent: Total time with patient: 50 - 65 Minutes QUALITY Stroke Symptom Onset Unknown: No VTE Deep Vein Thrombosis/Pulmonary Embolism Present on Admission: No
[2022-07-09 08:05] LABS: ALT/SGPT 28 U/L (<40); AST/SGOT 22 U/L (<40); Albumin 3.3 gm/dL (3.2-5.2); Albumin/Globulin Ratio 1.3 (1.0-2.3); Alkaline Phosphatase 124 U/L (39-117); Bilirubin,Direct 0.2 mg/dL (<0.3); Bilirubin,Total 0.6 mg/dL (0.1-1.0); Blood Urea Nitrogen 43 mg/dL (8-23); Carbon Dioxide 23 mmol/L (22-30); Chloride 99 mmol/L (96-108); Globulin 2.6 gm/dL (2.2-3.7); Glomerular Filtration Rate 43; Glucose 462 mg/dL (70-105); Lactate Dehydrogenase 341 U/L (135-225); Triglycerides 171 mg/dL (<150); Uric Acid 7.8 mg/dL (2.5-8.0)
[2022-07-09 08:37] LABS: Band Neutrophils % 2 % (0-10); Lymphocytes % 2 % (15-49); Monocytes % (Manual) 2 % (1-12); Platelet Estimate NORMAL (Normal); RBC Morphology NORMAL (Normal); Segmented Neutrophils % 94 % (38-78)
[2022-07-09] MEDS ORDERED: predniSONE 5 MG TABLET PO SCH (09:00)
[2022-07-09] MEDS: SERTRALINE 100 MG TABLET PO SCH (09:02)
[2022-07-09] MEDS: morphine 15 MG TAB.SR.12H PO SCH ×2 (09:02→20:25)
[2022-07-09] MEDS: METOPROLOL TARTRATE 50 MG TABLET PO SCH ×2 (09:02→20:18)
[2022-07-09] MEDS: ISOSORBIDE MONONITRATE 30 MG TAB.XL.24H PO SCH ×2 (09:03→20:25)
[2022-07-09] MEDS: HYDROXYCHLOROQUINE 200 MG TABLET PO SCH ×2 (09:03→20:18)
[2022-07-09] MEDS: APIXABAN 5 MG TABLET PO SCH ×2 (09:03→20:18)
[2022-07-09] MEDS: LEVOTHYROXINE 50 MCG TABLET PO SCH (09:03)
[2022-07-09] MEDS: MYCOPHENOLATE 250 MG CAPSULE PO SCH ×2 (09:04→20:25)
[2022-07-09] MEDS: DOCUSATE SODIUM 100 MG CAPSULE PO SCH ×2 (09:04→19:15)
[2022-07-09] MEDS ORDERED: VANCOMYCIN PER PHARMACY IV SCH (09:15)
[2022-07-09] MEDS ORDERED: VANCOMYCIN 1,000 MG in 0.9 % SODIUM CHLORIDE 250 ML IV SCH (11:00)
[2022-07-09] MEDS ORDERED: predniSONE 20 MG TABLET PO SCH (12:00)
[2022-07-09] MEDS: Fluticasone Furoate-Vilanterol [Breo Ellipta] 100 INH SCH (13:28)
[2022-07-09] MEDS: PANTOPRAZOLE 40 MG TABLET PO SCH (17:18)
[2022-07-09] MEDS: INSULIN GLARGINE, HUMAN 1 UNIT/0.01 ML SQ SCH (20:18)
[2022-07-09] MEDS: AMITRIPTYLINE 25 MG TABLET PO SCH (20:18)
[2022-07-09] MEDS: Diclofenac Sodium 1 % gel TOPICAL SCH (20:19)
[2022-07-09] MEDS: PRAMIPEXOLE 1 MG TABLET PO SCH (20:30)
--- NOTE | 2022-07-09 20:53 | EKG ---
[facility] Test Date: 2022-07-08 Pat Name: Ashish Rainey Department: ED Room: Gender: Male [employer]: KASSY : [id number] Requested By: Vicente Gonzalez Order Number: [id number] Reading MD: Ashish Carbajal Measurements Intervals [place] Rate: 106 P: 0 IN: 145 QRS: 221 QRSD: 134 T: -48 QT: 346 QTc: 460 Interpretive Statements Atrial-sensed ventricular-paced rhythm No further analysis attempted due to paced rhythm Baseline wander in lead(s) V4,V5 Electronically Signed On 07-09-2022 20:53:06 PST by Ashish Carbajal /store/M0/[id number]
[2022-07-10] MEDS: INSULIN LISPRO 1 UNIT/0.01 ML UNIT SQ SCH ×8 (01:08→22:57)
[2022-07-10] MEDS: PIPERACILLIN SODIUM/TAZOBACTAM 3.375 GM in DEXTROSE 5% IN WATER 50 ML IV SCH (05:10)
[2022-07-10] MEDS: HYDROCORTISONE SOD SUCC 100 MG VIAL IV SCH ×2 (05:11→20:32)
[2022-07-10] MEDS: 0.9 % SODIUM CHLORIDE 10 ML SYRINGE IV SCH ×3 (05:19→20:39)
[2022-07-10 06:31] LABS: Basophils # (Auto) 0.01 K/mcL (0.00-0.30); Basophils % (Auto) 0.1 % (0.0-2.0); Eosinophils # (Auto) 0.01 K/mcL (0.00-0.70); Eosinophils % (Auto) 0.1 % (0.0-7.0); Hematocrit 33.2 % (40.1-51.0); Hemoglobin 10.1 g/dL (13.7-17.5); Lymphocytes # (Auto) 0.35 K/mcL (1.50-4.80); Lymphocytes % (Auto) 3.6 % (15.5-49.0); Mean Cell Volume 97.6 fL (80.0-100.0); Mean Corpuscular HGB Conc 30.4 g/dL (31.0-36.0); Mean Platelet Volume 10.4 fL (8.8-12.5); Monocytes # (Auto) 0.45 K/mcL (0.10-0.90); Monocytes % (Auto) 4.6 % (1.0-12.0); Neutrophils % (Auto) 90.2 % (38.0-78.0); Platelet Count 176 K/mcL (140-440); Red Cell Distribution Width 13.8 % (11.5-14.5); WBC 9.9 K/mcL (4.5-11.0)
[2022-07-10 07:11] LABS: ALT/SGPT 20 U/L (<40); AST/SGOT 11 U/L (<40); Albumin 2.9 gm/dL (3.2-5.2); Albumin/Globulin Ratio 1.2 (1.0-2.3); Alkaline Phosphatase 89 U/L (39-117); Bilirubin,Direct < 0.2 mg/dL (0-0.3); Bilirubin,Total 0.3 mg/dL (0.1-1.0); Blood Urea Nitrogen 28 mg/dL (8-23); Calcium 8.2 mg/dL (8.6-10.4); Carbon Dioxide 25 mmol/L (22-30); Chloride 104 mmol/L (96-108); Globulin 2.5 gm/dL (2.2-3.7); Glomerular Filtration Rate 67; Glucose 138 mg/dL (70-105); Lactate Dehydrogenase 245 U/L (135-225); Phosphorous 2.7 mg/dL (2.5-4.5); Triglycerides 115 mg/dL (<150); Uric Acid 5.4 mg/dL (2.5-8.0)
[2022-07-10] MEDS: PANTOPRAZOLE 40 MG TABLET PO SCH ×2 (07:19→17:09)
[2022-07-10] MEDS: LEVOTHYROXINE 50 MCG TABLET PO SCH (07:19)
--- NOTE | 2022-07-10 07:46 | Internal Med Progress Note ---
SUBJECTIVE Subjective Patient information: Note initiated : 07/10/22 at 7:37 am Service Date, if different from initiated Date: [] Patient: Ashish Rainey a 71 y/o M admitted on 07/08/22 for Fever, SOB. Chief Complaint: [] Interval history: History of present illness: Mr. Rainey is a 71 year old M Presents the ED with fever chills shortness of breath headache shakiness Per family patient had a temperature of 101 at home. Patient states that he was feeling fine yesterday and went to bed feeling okay. Woke up this morning about 4 AM with a bad headache and had fevers and shaking. He did not have any neck stiffness nausea vomiting light sensitivity or altered mental status. He felt weak. He has a chronic cough and there is been no change in that. Has chronic shortness of breath and feels that is been a little bit worse. He wears 4 L of nasal cannula day and night for COPD and pulmonary fibrosis. is concerned for UTI. She says he has been urinating less. Rapid flu and COVID in the ED was negative. Patient reports no wounds on his body. In the ED he was tachycardic on admit and eventually noted to be calm hypotonic tensive but responded to IV fluids. He also became hypoxic at 87% and put on nasal cannula. He is tachypneic in the 20s. Patient had a lactate of 5.2 that improved to 2.6 with IV fluids and a procalcitonin of 0.4. His white blood cell count was essentially normal but he had a bandemia of 18%. And his BUN and creatinine were elevated with a 38/1.6. Glucose also elevated at 252. Source of infection not identified on chest x-ray and UA and so a CT chest abdomen pelvis were done and verbal report to the ED physician was unremarkable. EKG ventricular paced. 3/5 Patient poor sleep. But otherwise feeling a little bit better. Blood glucose quite high this morning. Clarify home insulin regimen. Significant leukocytosis as expected given the bandemia yesterday. Bandemia is now improved. Lactic acidosis improved. Renal function no improvement. A1c 10.9. Urine output mediocre. Continue aggressive IV fluids. 1 blood culture positive thus far for gram-positive cocci in clusters of both bottles of 1 set. Complains of headaches. And states now he has some diarrhea, says he goes back and forth between diarrhea and constipation 3/6 Patient complains of headache. Sore spot on his tongue. 2 sets of blood cultures with gram-positive cocci in clusters and awaiting final identification. Echo pending. Repeat blood cultures from the fifth negative thus far. Leukocytosis improving. Renal function improving. Review of Systems: chronic abdominal pain. Denies nausea/vomiting/chest /diarrhea.Otherwise see above. PHYSICAL EXAM General: Alert, Awake, No acute Distress, obese Eyes/N/T: EOMI, no scleral icterus, nonerythematous small ulcer x2 on left of tongue - aphthous ulcer Head/Neck: neck supple, full ROM, CV: RRR, No murmurs, Pulm: Clear b/l, no wheezing/rhonchi/rales, no respiratory distress Abd: soft, nontender, +BS x4 Ext: no clubbing/cyanosis, LLE edema 2+ and RLE 1+ edema, nontender, venous stasis Neuro: Alert, no focal deficits, moves all extremities, sensations intact b/l upper/lower Psychiatric: Skin: warm/dry, normal color Constitutional Vitals: Vital Signs Temp Pulse Resp BP Pulse Ox O2 Del Method O2 Flow Rate 98.2 F 70 20 124/79 98 Nasal Cannula 2.5 07/10/22 00:00 07/10/22 04:00 07/10/22 06:00 07/10/22 06:00 07/10/22 04:00 07/10/22 06:00 07/10/22 06:00 Period Temp Pulse Resp BP Sys/Corey Pulse Ox O2 Del Method O2 Flow Rate Last 24 Hr 97.7 F-98.3 F 70-93 17-32 106-149/68-99 84-100 Nasal Cannula- Nasal Cannula 2-2.5 Intake and Output 07/09/22 07/10/22 07/10/22 19:59 03:59 11:59 Intake Total 1580 1290 290 Output Total 920 525 300 Balance 660 765 -10 Weight 153.813 kg Intake & Output: Intake & Output 07/09/22 07/10/22 07/10/22 19:59 03:59 11:59 Intake Total 1580 1290 290 Output Total 920 525 300 Balance 660 765 -10 Weight 153.813 kg Intake: IV 350 1050 50 Sodium Chloride 0.9% 1,000 ml @ 1000 125 mls/hr IV .Q8H [facility] Rx#: [id number] Zosyn 3.375 gm In Dextrose 5% 100 50 50 in Water 50 ml @ 100 mls/hr IV Q6H [place] Rx#:[id number] Vancomycin 1,000 mg In Sodium 250 Chloride 0.9% 250 ml @ 250 mls/ hr IV ONCE [facility] Rx#:[id number] Oral 1230 240 240 Output: Void Amount 920 525 300 Other: Meal Dinner Percent of Meal Consumed 100% Feeding Ability Independent Urine Appearance Clear Clear Clear Urine Color Yellow Yellow Yellow Light Reina Urine Odor Normal OBJ DATA Labs 07/10/22 05:18 07/10/22 05:18 Labs: Abnormal Lab Results 07/10/22 07/10/22 07/10/22 05:24 05:18 05:18 WBC RBC 3.40 L Hgb 10.1 L Hct 33.2 L MCV MCHC 30.4 L Immature Gran % (Auto) 1.4 H Neut % (Auto) 90.2 H Lymph % (Auto) 3.6 L [place] % (Auto) Lymph # (Auto) 0.35 L Seg Neutrophils % Band Neutrophils % Lymphocytes % Immature Gran # 0.14 H Absolute Neutrophils 8.89 H RBC Morphology Hypochromasia POC VBG pCO2 at Temp POC VBG pO2 POC VBG HCO3 POC VBG Total CO2 POC Venous O2 Sat POC VBG Base Excess VBG Lactic Acid BUN 28 H Creatinine Glucose 138 H Hemoglobin A1c Calcium 8.2 L Direct Bilirubin GGT 145 H AST Alkaline Phosphatase Lactate Dehydrogenase 245 H NT-Pro-B Natriuret Pep Total Protein 5.4 L Albumin 2.9 L Triglycerides Procalcitonin 4.05 H Urine Appearance Urine Protein Urine Glucose (UA) Urine Mucus 07/09/22 07/09/22 07/09/22 09:01 05:32 05:31 WBC RBC Hgb Hct MCV MCHC Immature Gran % (Auto) Neut % (Auto) Lymph % (Auto) [place] % (Auto) Lymph # (Auto) Seg Neutrophils % Band Neutrophils % Lymphocytes % Immature Gran # Absolute Neutrophils RBC Morphology Hypochromasia POC VBG pCO2 at Temp POC VBG pO2 POC VBG HCO3 28.1 H POC VBG Total CO2 30.0 H POC Venous O2 Sat 71.0 H POC VBG Base Excess 3.0 H VBG Lactic Acid BUN 43 H Creatinine 1.6 H Glucose 462 H* Hemoglobin A1c Calcium 8.0 L Direct Bilirubin GGT 179 H AST Alkaline Phosphatase 124 H Lactate Dehydrogenase 341 H NT-Pro-B Natriuret Pep Total Protein Albumin Triglycerides 171 H Procalcitonin 12.01 H Urine Appearance Urine Protein Urine Glucose (UA) Urine Mucus 07/09/22 07/08/22 07/08/22 05:31 22:48 22:04 WBC 17.1 H RBC 3.56 L Hgb 10.5 L Hct 37.6 L MCV 105.6 H MCHC 27.9 L Immature Gran % (Auto) Neut % (Auto) Lymph % (Auto) [place] % (Auto) Lymph # (Auto) Seg Neutrophils % 94 H Band Neutrophils % Lymphocytes % 2 L Immature Gran # Absolute Neutrophils RBC Morphology Hypochromasia POC VBG pCO2 at Temp POC VBG pO2 POC VBG HCO3 POC VBG Total CO2 POC Venous O2 Sat POC VBG Base Excess VBG Lactic Acid 2.8 H BUN Creatinine Glucose Hemoglobin A1c 10.9 H Calcium Direct Bilirubin GGT AST Alkaline Phosphatase Lactate Dehydrogenase NT-Pro-B Natriuret Pep Total Protein Albumin Triglycerides Procalcitonin Urine Appearance Urine Protein Urine Glucose (UA) Urine Mucus 07/08/22 07/08/22 07/08/22 18:45 18:18 17:28 WBC RBC Hgb Hct MCV MCHC Immature Gran % (Auto) Neut % (Auto) Lymph % (Auto) [place] % (Auto) Lymph # (Auto) Seg Neutrophils % Band Neutrophils % Lymphocytes % Immature Gran # Absolute Neutrophils RBC Morphology Hypochromasia POC VBG pCO2 at Temp POC VBG pO2 43 H POC VBG HCO3 POC VBG Total CO2 POC Venous O2 Sat 79.0 H POC VBG Base Excess 3.0 H VBG Lactic Acid 2.6 H BUN 38 H Creatinine 1.6 H Glucose 252 H Hemoglobin A1c Calcium 8.2 L Direct Bilirubin GGT AST Alkaline Phosphatase 129 H Lactate Dehydrogenase NT-Pro-B Natriuret Pep Total Protein 5.7 L Albumin Triglycerides Procalcitonin Urine Appearance Hazy A Urine Protein 30 A Urine Glucose (UA) 50 A Urine Mucus Few A 07/08/22 07/08/22 07/08/22 17:28 14:33 14:33 WBC RBC Hgb Hct MCV MCHC Immature Gran % (Auto) Neut % (Auto) Lymph % (Auto) [place] % (Auto) Lymph # (Auto) Seg Neutrophils % Band Neutrophils % 18 H Lymphocytes % 2 L Immature Gran # Absolute Neutrophils RBC Morphology Abnormal A Hypochromasia 1+ A POC VBG pCO2 at Temp POC VBG pO2 POC VBG HCO3 POC VBG Total CO2 POC Venous O2 Sat POC VBG Base Excess VBG Lactic Acid 3.1 H BUN Creatinine Glucose Hemoglobin A1c Calcium Direct Bilirubin GGT AST Alkaline Phosphatase Lactate Dehydrogenase NT-Pro-B Natriuret Pep Total Protein Albumin Triglycerides Procalcitonin 0.42 H Urine Appearance Urine Protein Urine Glucose (UA) Urine Mucus 07/08/22 07/08/22 07/08/22 14:33 14:33 14:33 WBC RBC 4.01 L Hgb 11.9 L Hct 39.1 L MCV MCHC 30.4 L Immature Gran % (Auto) Neut % (Auto) 95.6 H Lymph % (Auto) 2.7 L [place] % (Auto) 0.9 L Lymph # (Auto) 0.28 L Seg Neutrophils % Band Neutrophils % Lymphocytes % Immature Gran # Absolute Neutrophils 10.07 H RBC Morphology Hypochromasia POC VBG pCO2 at Temp POC VBG pO2 POC VBG HCO3 POC VBG Total CO2 POC Venous O2 Sat POC VBG Base Excess VBG Lactic Acid BUN Creatinine Glucose Hemoglobin A1c Calcium Direct Bilirubin 0.3 H GGT AST 42 H Alkaline Phosphatase 169 H Lactate Dehydrogenase NT-Pro-B Natriuret Pep 306.1 H Total Protein Albumin Triglycerides Procalcitonin Urine Appearance Urine Protein Urine Glucose (UA) Urine Mucus 07/08/22 14:05 WBC RBC Hgb Hct MCV MCHC Immature Gran % (Auto) Neut % (Auto) Lymph % (Auto) [place] % (Auto) Lymph # (Auto) Seg Neutrophils % Band Neutrophils % Lymphocytes % Immature Gran # Absolute Neutrophils RBC Morphology Hypochromasia POC VBG pCO2 at Temp 51.9 H POC VBG pO2 15 L POC VBG HCO3 30.6 H POC VBG Total CO2 32.0 H POC Venous O2 Sat 19.0 L POC VBG Base Excess 5.0 H* VBG Lactic Acid 5.2 H* BUN Creatinine Glucose Hemoglobin A1c Calcium Direct Bilirubin GGT AST Alkaline Phosphatase Lactate Dehydrogenase NT-Pro-B Natriuret Pep Total Protein Albumin Triglycerides Procalcitonin Urine Appearance Urine Protein Urine Glucose (UA) Urine Mucus Meds: Medications Acetaminophen (Acetaminophen 325 Mg Tablet) 650 mg PO Q6HP PRN; Protocol PRN Reason: Per Pain Protocol/Fever > 101 Hydrocodone Bitart/Acetaminophen (Hydrocodone/Apap 10/325mg Tablet) 2 tab PO TIDP PRN; Protocol PRN Reason: pain Albuterol/Ipratropium (Ipratropium/Albuterol 3 Ml Ampul.Neb) 3 ml NEB Q4HP PRN PRN Reason: Shortness Of Breath Amitriptyline HCl (Amitriptyline 25 Mg Tablet) 25 mg PO QHS [facility] Last Admin: 07/09/22 20:18 Dose: 25 mg Apixaban (Apixaban 5 Mg Tablet) 5 mg PO BID [facility] Last Admin: 07/09/22 20:18 Dose: 5 mg Dextrose (Dextrose 50% 50 Ml Vial) 0 ml IV UD PRN PRN Reason: Per Sliding Scale Diagnostic Test (Pha) (Accu-Chek 1 Each Strip) 1 each FS ACHS [facility] Last Admin: 07/10/22 07:20 Dose: 1 each Docusate Sodium (Docusate Sodium 100 Mg Capsule) 100 mg PO BID [facility] Last Admin: 07/09/22 19:15 Dose: Not Given Glucose (Dextrose 31 Gm Oral.Susp) 15 gm PO PRN PRN PRN Reason: Hypoglycemia Hydrocortisone Sodium Succinate (Hydrocortisone Sod Succ 100 Mg Vial) 25 mg IV Q8 [facility] Last Admin: 07/10/22 05:11 Dose: 25 mg Hydroxychloroquine Sulfate (Hydroxychloroquine 200 Mg Tablet) 200 mg PO BID [facility] Last Admin: 07/09/22 20:18 Dose: 200 mg Potassium Chloride 40 meq/ (Dextrose) 520 mls @ 130 mls/hr IV UD PRN PRN Reason: Potassium < 3 Magnesium Sulfate (Magnesium Sulfate) 2 gm in 50 mls @ 50 mls/hr IV UD PRN PRN Reason: Magnesium </= 1.6 Piperacillin Sod/Tazobactam (Sod 3.375 gm/ Dextrose) 50 mls @ 100 mls/hr IV Q6H [facility]; Protocol Last Infusion: 07/10/22 06:39 Dose: Infused Insulin Glargine (Insulin Glargine, Human 1 Unit/0.01 Ml) 150 unit SQ HS [facility] Last Admin: 07/09/22 20:18 Dose: 150 units Insulin Human Lispro (Insulin Lispro 1 Unit/0.01 Ml Unit) 0 unit SQ ACHS [facility]; Protocol Last Admin: 07/10/22 07:20 Dose: Not Given Isosorbide Mononitrate (Isosorbide Mononitrate 30 Mg Tab.Xl.24h) 30 mg PO BID [facility] Last Admin: 07/09/22 20:25 Dose: 30 mg Levothyroxine Sodium (Levothyroxine 50 Mcg Tablet) 50 mcg PO QDAY [facility] Last Admin: 07/10/22 07:19 Dose: 50 mcg Metoprolol Tartrate (Metoprolol Tartrate 5 Mg/5 Ml Vial) 5 mg IV Q2HP PRN PRN Reason: Tachyarrhythmias HR>110 Metoprolol Tartrate (Metoprolol Tartrate 50 Mg Tablet) 50 mg PO BID [facility] Last Admin: 07/09/22 20:18 Dose: 50 mg Morphine Sulfate (Morphine 4 Mg/Ml Vial) 0 mg IV Q3HP PRN PRN Reason: Pain Morphine Sulfate (Morphine 15 Mg Tab.Sr.12h) 15 mg PO Q12H [facility]; Protocol Last Admin: 07/09/22 20:25 Dose: 15 mg Mycophenolate Mofetil (Mycophenolate 250 Mg Capsule) 1,500 mg PO BID [facility] Last Admin: 07/09/22 20:25 Dose: 1,500 mg Ondansetron HCl (Ondansetron 4 Mg/2 Ml Vial) 4 mg IV Q4HP PRN PRN Reason: Nausea And Vomiting Pantoprazole Sodium (Pantoprazole 40 Mg Tablet) 40 mg PO BIDAC [facility] Last Admin: 07/10/22 07:19 Dose: 40 mg Aripiprazole 2 Mg (Tablet) 1 dose PO QHS [facility] Last Admin: 07/09/22 20:19 Dose: Not Given Fluticasone Furoate- Vilanterol [Breo Ellipta] 100 1 dose INH Q24H [facility] Last Admin: 07/09/22 13:28 Dose: Not Given Diclofenac Sodium 1 (% Gel) 1 dose TOPICAL HS [facility] Last Admin: 07/09/22 20:19 Dose: Not Given Polyethylene Glycol (Polyethylene Glycol 3350 17 Gm Packet) 17 gm PO DAILYP PRN PRN Reason: Constipation Potassium Chloride (Potassium Chloride 20 Meq Tablet) 40 meq PO UD PRN PRN Reason: Potssium is 3-3.5 Potassium Chloride (Potassium Chloride 20 Meq Tablet) 40 meq PO UD PRN PRN Reason: Potassium < 3 Pramipexole Dihydrochloride (Pramipexole 1 Mg Tablet) 4 mg PO HS [facility] Last Admin: 07/09/22 20:30 Dose: 4 mg Prednisone (Prednisone 20 Mg Tablet) 20 mg PO [facility] Stop: 07/16/22 08:01 Prednisone (Prednisone 10 Mg Tablet) 10 mg PO [facility] Stop: 07/23/22 08:01 Senna (Sennosides 1 Tablet) 2 tab PO DAILYP PRN PRN Reason: Constipation Sertraline HCl (Sertraline 100 Mg Tablet) 100 mg PO QDAY [facility] Last Admin: 07/09/22 09:02 Dose: 100 mg Sodium Chloride (0.9 % Sodium Chloride 10 Ml Syringe) 10 ml IV Q8 [facility] Last Admin: 07/10/22 05:19 Dose: 10 ml A/P Narrative A/P Narrative: A: *severe Sepsis(tachycardia/tachypnea/leukocytosis-bandemia) w/Hyperlactatemia: 2/2 bacteremia. 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: -cellept, prednisone - normally 10mg qd but currently on taper and at 30mg *Immunosuppressed: on cellcept and prednisone *Chronic back pain: Opioid dependent *GERD: *Depression/anxiety: cont SSRI *Hypothyroidism: Continue levothyroxine *peripheral edema: On diuretics *h/o DVT: on eliquis P: -zosyn to rocephin,+ vanco until I&S return, pending BC/SC, mrsa screen neg -serial BC -IVFs hold, -Monitor renal function/UOP/strict I&O -Avoid nephrotoxic meds -Trend PCT -supp O2, IS, prn nebs, cont home IH's -Basal and SSI -hold diuretics for now -cont home prednisone with stress dosing hydrocortisone (taper off) -cont BB -PT/OT -CM for placement -ppx: home eliquis / home PPI Time Spent With Patient Time: Total time spent is greater than 50% in coordination of care (as documented) at patient's floor/unit and/or counseling patient: Subsequent: Total time with patient: 50 - 65 Minutes QUALITY Stroke Symptom Onset Unknown: No VTE Deep Vein Thrombosis/Pulmonary Embolism Present on Admission: No
[2022-07-10] MEDS: Fluticasone Furoate-Vilanterol [Breo Ellipta] 100 INH SCH (08:31)
[2022-07-10] MEDS: APIXABAN 5 MG TABLET PO SCH ×2 (08:31→20:28)
[2022-07-10] MEDS: predniSONE 20 MG TABLET PO SCH (08:31)
[2022-07-10] MEDS: cefTRIAXone 2 GM in DEXTROSE 5% IN WATER 50 ML IV SCH (08:31)
[2022-07-10] MEDS: METOPROLOL TARTRATE 50 MG TABLET PO SCH ×2 (08:31→20:29)
[2022-07-10] MEDS: MYCOPHENOLATE 250 MG CAPSULE PO SCH ×2 (08:31→20:29)
[2022-07-10] MEDS: HYDROXYCHLOROQUINE 200 MG TABLET PO SCH ×2 (08:31→20:28)
[2022-07-10] MEDS: DOCUSATE SODIUM 100 MG CAPSULE PO SCH ×2 (08:32→20:29)
[2022-07-10] MEDS: ISOSORBIDE MONONITRATE 30 MG TAB.XL.24H PO SCH ×2 (08:35→20:38)
[2022-07-10] MEDS: SERTRALINE 100 MG TABLET PO SCH (08:35)
[2022-07-10] MEDS: morphine 15 MG TAB.SR.12H PO SCH ×2 (08:35→20:38)
[2022-07-10] MEDS: HYDROcodone/APAP 10/325MG TABLET PO PRN (09:33)
--- NOTE | 2022-07-10 13:13 | Internal Med Progress Note ---
SUBJECTIVE Subjective Patient information: Note initiated : 07/10/22 at 1:03 pm Service Date, if different from initiated Date: [] Patient: Ashish Rainey a 71 y/o M admitted on 07/08/22 for Fever, SOB. Chief Complaint: [] Interval history: History of present illness: Mr. Rainey is a 71 year old M Presents the ED with fever chills shortness of breath headache shakiness Per family patient had a temperature of 101 at home. Patient states that he was feeling fine yesterday and went to bed feeling okay. Woke up this morning about 4 AM with a bad headache and had fevers and shaking. He did not have any neck stiffness nausea vomiting light sensitivity or altered mental status. He felt weak. He has a chronic cough and there is been no change in that. Has chronic shortness of breath and feels that is been a little bit worse. He wears 4 L of nasal cannula day and night for COPD and pulmonary fibrosis. is concerned for UTI. She says he has been urinating less. Rapid flu and COVID in the ED was negative. Patient reports no wounds on his body. In the ED he was tachycardic on admit and eventually noted to be calm hypotonic tensive but responded to IV fluids. He also became hypoxic at 87% and put on nasal cannula. He is tachypneic in the 20s. Patient had a lactate of 5.2 that improved to 2.6 with IV fluids and a procalcitonin of 0.4. His white blood cell count was essentially normal but he had a bandemia of 18%. And his BUN and creatinine were elevated with a 38/1.6. Glucose also elevated at 252. Source of infection not identified on chest x-ray and UA and so a CT chest abdomen pelvis were done and verbal report to the ED physician was unremarkable. EKG ventricular paced. 3/5 Patient poor sleep. But otherwise feeling a little bit better. Blood glucose quite high this morning. Clarify home insulin regimen. Significant leukocytosis as expected given the bandemia yesterday. Bandemia is now improved. Lactic acidosis improved. Renal function no improvement. A1c 10.9. Urine output mediocre. Continue aggressive IV fluids. 1 blood culture positive thus far for gram-positive cocci in clusters of both bottles of 1 set. Complains of headaches. And states now he has some diarrhea, says he goes back and forth between diarrhea and constipation 3/6 Patient complains of headache. Sore spot on his tongue. 2 sets of blood cultures with gram-positive cocci in clusters and awaiting final identification. Echo pending. Repeat blood cultures from the fifth negative thus far. Leukocytosis improving. Renal function improving. 07/11 No significant changes overnight, patient continues to require oxygen supple mentation. Infectious disease consulted for recommendations on antibiotic treatment for bacteremia. Transthoracic echocardiogram did not show any valvular vegetations however the valvular assessment was suboptimal. Physical Exam Head: Atraumatic, normal inspection. Eyes: normal appearance, no scleral icterus. Neck: full ROM Respiratory: no respiratory distress. Cardiovascular: normal rate and rhythm, S1, S2. GI/Abdominal: Obesely distended, soft, nontender, no guarding. 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 Neurological: CN II-XII intact, intact motor, intact sensation, spinal stimulator palpable. Psychiatric: normal mood. Skin: warm, normal color Constitutional Vitals: Vital Signs Temp Pulse Resp BP Pulse Ox O2 Del Method O2 Flow Rate 97.3 F 70 23 H 133/80 97 Nasal Cannula 2.5 07/10/22 12:00 07/10/22 04:00 07/10/22 08:00 07/10/22 12:00 07/10/22 12:00 07/10/22 12:00 07/10/22 12:00 Period Temp Pulse Resp BP Sys/Corey Pulse Ox O2 Del Method O2 Flow Rate Last 24 Hr 97.1 F-98.3 F 70-83 17-32 106-149/56-99 84-100 Nasal Cannula- Room Air 2-2.5 Intake and Output 07/10/22 07/10/22 07/10/22 03:59 11:59 19:59 Intake Total 1290 820 Output Total 525 300 Balance 765 520 Weight 153.813 kg Intake & Output: Intake & Output 07/10/22 07/10/22 07/10/22 03:59 11:59 19:59 Intake Total 1290 820 Output Total 525 300 Balance 765 520 Weight 153.813 kg Intake: IV 1050 100 Sodium Chloride 0.9% 1,000 ml @ 1000 125 mls/hr IV .Q8H [facility] Rx#: [id number] Zosyn 3.375 gm In Dextrose 5% 50 50 in Water 50 ml @ 100 mls/hr IV Q6H [facility] Rx#:[id number] Rocephin 2 gm In Dextrose 5% in 50 Water 50 ml @ 100 mls/hr IV Q24H [facility] Rx#:[id number] Oral 240 720 Output: Void Amount 525 300 Other: Meal Breakfast Percent of Meal Consumed 100% Urine Appearance Clear Clear Urine Color Yellow Yellow Stool Size Moderate Stool Consistency Loose # Voids 1 # Bowel Movements 1 OBJ DATA Labs 07/10/22 05:18 07/10/22 05:18 Labs: Abnormal Lab Results 07/10/22 07/10/22 07/10/22 05:24 05:18 05:18 WBC RBC 3.40 L Hgb 10.1 L Hct 33.2 L MCV MCHC 30.4 L Immature Gran % (Auto) 1.4 H Neut % (Auto) 90.2 H Lymph % (Auto) 3.6 L Barren % (Auto) Lymph # (Auto) 0.35 L Seg Neutrophils % Band Neutrophils % Lymphocytes % Immature Gran # 0.14 H Absolute Neutrophils 8.89 H RBC Morphology Hypochromasia POC VBG pCO2 at Temp POC VBG pO2 POC VBG HCO3 POC VBG Total CO2 POC Venous O2 Sat POC VBG Base Excess VBG Lactic Acid BUN 28 H Creatinine Glucose 138 H Hemoglobin A1c Calcium 8.2 L Direct Bilirubin GGT 145 H AST Alkaline Phosphatase Lactate Dehydrogenase 245 H NT-Pro-B Natriuret Pep Total Protein 5.4 L Albumin 2.9 L Triglycerides Procalcitonin 4.05 H Urine Appearance Urine Protein Urine Glucose (UA) Urine Mucus 07/09/22 07/09/22 07/09/22 09:01 05:32 05:31 WBC RBC Hgb Hct MCV MCHC Immature Gran % (Auto) Neut % (Auto) Lymph % (Auto) Barren % (Auto) Lymph # (Auto) Seg Neutrophils % Band Neutrophils % Lymphocytes % Immature Gran # Absolute Neutrophils RBC Morphology Hypochromasia POC VBG pCO2 at Temp POC VBG pO2 POC VBG HCO3 28.1 H POC VBG Total CO2 30.0 H POC Venous O2 Sat 71.0 H POC VBG Base Excess 3.0 H VBG Lactic Acid BUN 43 H Creatinine 1.6 H Glucose 462 H* Hemoglobin A1c Calcium 8.0 L Direct Bilirubin GGT 179 H AST Alkaline Phosphatase 124 H Lactate Dehydrogenase 341 H NT-Pro-B Natriuret Pep Total Protein Albumin Triglycerides 171 H Procalcitonin 12.01 H Urine Appearance Urine Protein Urine Glucose (UA) Urine Mucus 07/09/22 07/08/22 07/08/22 05:31 22:48 22:04 WBC 17.1 H RBC 3.56 L Hgb 10.5 L Hct 37.6 L MCV 105.6 H MCHC 27.9 L Immature Gran % (Auto) Neut % (Auto) Lymph % (Auto) Barren % (Auto) Lymph # (Auto) Seg Neutrophils % 94 H Band Neutrophils % Lymphocytes % 2 L Immature Gran # Absolute Neutrophils RBC Morphology Hypochromasia POC VBG pCO2 at Temp POC VBG pO2 POC VBG HCO3 POC VBG Total CO2 POC Venous O2 Sat POC VBG Base Excess VBG Lactic Acid 2.8 H BUN Creatinine Glucose Hemoglobin A1c 10.9 H Calcium Direct Bilirubin GGT AST Alkaline Phosphatase Lactate Dehydrogenase NT-Pro-B Natriuret Pep Total Protein Albumin Triglycerides Procalcitonin Urine Appearance Urine Protein Urine Glucose (UA) Urine Mucus 07/08/22 07/08/22 07/08/22 18:45 18:18 17:28 WBC RBC Hgb Hct MCV MCHC Immature Gran % (Auto) Neut % (Auto) Lymph % (Auto) Barren % (Auto) Lymph # (Auto) Seg Neutrophils % Band Neutrophils % Lymphocytes % Immature Gran # Absolute Neutrophils RBC Morphology Hypochromasia POC VBG pCO2 at Temp POC VBG pO2 43 H POC VBG HCO3 POC VBG Total CO2 POC Venous O2 Sat 79.0 H POC VBG Base Excess 3.0 H VBG Lactic Acid 2.6 H BUN 38 H Creatinine 1.6 H Glucose 252 H Hemoglobin A1c Calcium 8.2 L Direct Bilirubin GGT AST Alkaline Phosphatase 129 H Lactate Dehydrogenase NT-Pro-B Natriuret Pep Total Protein 5.7 L Albumin Triglycerides Procalcitonin Urine Appearance Hazy A Urine Protein 30 A Urine Glucose (UA) 50 A Urine Mucus Few A 07/08/22 07/08/22 07/08/22 17:28 14:33 14:33 WBC RBC Hgb Hct MCV MCHC Immature Gran % (Auto) Neut % (Auto) Lymph % (Auto) Barren % (Auto) Lymph # (Auto) Seg Neutrophils % Band Neutrophils % 18 H Lymphocytes % 2 L Immature Gran # Absolute Neutrophils RBC Morphology Abnormal A Hypochromasia 1+ A POC VBG pCO2 at Temp POC VBG pO2 POC VBG HCO3 POC VBG Total CO2 POC Venous O2 Sat POC VBG Base Excess VBG Lactic Acid 3.1 H BUN Creatinine Glucose Hemoglobin A1c Calcium Direct Bilirubin GGT AST Alkaline Phosphatase Lactate Dehydrogenase NT-Pro-B Natriuret Pep Total Protein Albumin Triglycerides Procalcitonin 0.42 H Urine Appearance Urine Protein Urine Glucose (UA) Urine Mucus 07/08/22 07/08/22 07/08/22 14:33 14:33 14:33 WBC RBC 4.01 L Hgb 11.9 L Hct 39.1 L MCV MCHC 30.4 L Immature Gran % (Auto) Neut % (Auto) 95.6 H Lymph % (Auto) 2.7 L Barren % (Auto) 0.9 L Lymph # (Auto) 0.28 L Seg Neutrophils % Band Neutrophils % Lymphocytes % Immature Gran # Absolute Neutrophils 10.07 H RBC Morphology Hypochromasia POC VBG pCO2 at Temp POC VBG pO2 POC VBG HCO3 POC VBG Total CO2 POC Venous O2 Sat POC VBG Base Excess VBG Lactic Acid BUN Creatinine Glucose Hemoglobin A1c Calcium Direct Bilirubin 0.3 H GGT AST 42 H Alkaline Phosphatase 169 H Lactate Dehydrogenase NT-Pro-B Natriuret Pep 306.1 H Total Protein Albumin Triglycerides Procalcitonin Urine Appearance Urine Protein Urine Glucose (UA) Urine Mucus 07/08/22 14:05 WBC RBC Hgb Hct MCV MCHC Immature Gran % (Auto) Neut % (Auto) Lymph % (Auto) Barren % (Auto) Lymph # (Auto) Seg Neutrophils % Band Neutrophils % Lymphocytes % Immature Gran # Absolute Neutrophils RBC Morphology Hypochromasia POC VBG pCO2 at Temp 51.9 H POC VBG pO2 15 L POC VBG HCO3 30.6 H POC VBG Total CO2 32.0 H POC Venous O2 Sat 19.0 L POC VBG Base Excess 5.0 H* VBG Lactic Acid 5.2 H* BUN Creatinine Glucose Hemoglobin A1c Calcium Direct Bilirubin GGT AST Alkaline Phosphatase Lactate Dehydrogenase NT-Pro-B Natriuret Pep Total Protein Albumin Triglycerides Procalcitonin Urine Appearance Urine Protein Urine Glucose (UA) Urine Mucus Meds: Medications Acetaminophen (Acetaminophen 325 Mg Tablet) 650 mg PO Q6HP PRN; Protocol PRN Reason: Per Pain Protocol/Fever > 101 Hydrocodone Bitart/Acetaminophen (Hydrocodone/Apap 10/325mg Tablet) 2 tab PO TIDP PRN; Protocol PRN Reason: pain Last Admin: 07/10/22 09:33 Dose: 2 tab Albuterol/Ipratropium (Ipratropium/Albuterol 3 Ml Ampul.Neb) 3 ml NEB Q4HP PRN PRN Reason: Shortness Of Breath Amitriptyline HCl (Amitriptyline 25 Mg Tablet) 25 mg PO QHS [facility] Last Admin: 07/09/22 20:18 Dose: 25 mg Apixaban (Apixaban 5 Mg Tablet) 5 mg PO BID [facility] Last Admin: 07/10/22 08:31 Dose: 5 mg Dextrose (Dextrose 50% 50 Ml Vial) 0 ml IV UD PRN PRN Reason: Per Sliding Scale Diagnostic Test (Pha) (Accu-Chek 1 Each Strip) 1 each FS ACHS [facility] Last Admin: 07/10/22 11:29 Dose: 1 each Docusate Sodium (Docusate Sodium 100 Mg Capsule) 100 mg PO BID [facility] Last Admin: 07/10/22 08:32 Dose: Not Given Glucose (Dextrose 31 Gm Oral.Susp) 15 gm PO PRN PRN PRN Reason: Hypoglycemia Hydrocortisone Sodium Succinate (Hydrocortisone Sod Succ 100 Mg Vial) 25 mg IV BID [facility] Hydroxychloroquine Sulfate (Hydroxychloroquine 200 Mg Tablet) 200 mg PO BID [facility] Last Admin: 07/10/22 08:31 Dose: 200 mg Potassium Chloride 40 meq/ (Dextrose) 520 mls @ 130 mls/hr IV UD PRN PRN Reason: Potassium < 3 Magnesium Sulfate (Magnesium Sulfate) 2 gm in 50 mls @ 50 mls/hr IV UD PRN PRN Reason: Magnesium </= 1.6 Ceftriaxone Sodium 2 gm/ (Dextrose) 50 mls @ 100 mls/hr IV Q24H [facility]; Protocol Last Infusion: 07/10/22 09:22 Dose: Infused Insulin Glargine (Insulin Glargine, Human 1 Unit/0.01 Ml) 150 unit SQ [facility] Last Admin: 07/09/22 20:18 Dose: 150 units Insulin Human Lispro (Insulin Lispro 1 Unit/0.01 Ml Unit) 0 unit SQ [facility]; Protocol Last Admin: 07/10/22 12:04 Dose: 6 unit Isosorbide Mononitrate (Isosorbide Mononitrate 30 Mg Tab.Xl.24h) 30 mg PO BID [facility] Last Admin: 07/10/22 08:35 Dose: 30 mg Levothyroxine Sodium (Levothyroxine 50 Mcg Tablet) 50 mcg PO QDAY [facility] Last Admin: 07/10/22 07:19 Dose: 50 mcg Metoprolol Tartrate (Metoprolol Tartrate 5 Mg/5 Ml Vial) 5 mg IV Q2HP PRN PRN Reason: Tachyarrhythmias HR>110 Metoprolol Tartrate (Metoprolol Tartrate 50 Mg Tablet) 50 mg PO BID [facility] Last Admin: 07/10/22 08:31 Dose: 50 mg Morphine Sulfate (Morphine 4 Mg/Ml Vial) 0 mg IV Q3HP PRN PRN Reason: Pain Morphine Sulfate (Morphine 15 Mg Tab.Sr.12h) 15 mg PO Q12H [facility]; Protocol Last Admin: 07/10/22 08:35 Dose: 15 mg Mycophenolate Mofetil (Mycophenolate 250 Mg Capsule) 1,500 mg PO BID [facility] Last Admin: 07/10/22 08:31 Dose: 1,500 mg Ondansetron HCl (Ondansetron 4 Mg/2 Ml Vial) 4 mg IV Q4HP PRN PRN Reason: Nausea And Vomiting Pantoprazole Sodium (Pantoprazole 40 Mg Tablet) 40 mg PO BIDAC [facility] Last Admin: 07/10/22 07:19 Dose: 40 mg Aripiprazole 2 Mg (Tablet) 1 dose PO QHS [facility] Last Admin: 07/09/22 20:19 Dose: Not Given Fluticasone Furoate- Vilanterol [Breo Ellipta] 100 1 dose INH Q24H [facility] Last Admin: 07/10/22 08:31 Dose: 1 dose Diclofenac Sodium 1 (% Gel) 1 dose TOPICAL HS [facility] Last Admin: 07/09/22 20:19 Dose: Not Given Polyethylene Glycol (Polyethylene Glycol 3350 17 Gm Packet) 17 gm PO DAILYP PRN PRN Reason: Constipation Potassium Chloride (Potassium Chloride 20 Meq Tablet) 40 meq PO UD PRN PRN Reason: Potssium is 3-3.5 Potassium Chloride (Potassium Chloride 20 Meq Tablet) 40 meq PO UD PRN PRN Reason: Potassium < 3 Pramipexole Dihydrochloride (Pramipexole 1 Mg Tablet) 4 mg PO HS [facility] Last Admin: 07/09/22 20:30 Dose: 4 mg Prednisone (Prednisone 20 Mg Tablet) 20 mg PO [facility] Stop: 07/16/22 08:01 Last Admin: 07/10/22 08:31 Dose: 20 mg Prednisone (Prednisone 10 Mg Tablet) 10 mg PO [facility] Stop: 07/23/22 08:01 Senna (Sennosides 1 Tablet) 2 tab PO DAILYP PRN PRN Reason: Constipation Sertraline HCl (Sertraline 100 Mg Tablet) 100 mg PO QDAY [facility] Last Admin: 07/10/22 08:35 Dose: 100 mg Sodium Chloride (0.9 % Sodium Chloride 10 Ml Syringe) 10 ml IV Q8 [facility] Last Admin: 07/10/22 05:19 Dose: 10 ml A/P Narrative A/P Narrative: Assessment: 70-year-old male with a history of SLE and 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 *Resolved severe sepsis due to bacteremia -lactate 5.2 on admit -UA/chest/abd/pelvis negative, no wounds -flu/rsv/covid neg *Coag negative staph bacteremia: Source likely break in the skin given poor skin condition and immunosuppressive's -Echo valvular assessment was suboptimal, did not show vegetations. 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 -Infectious disease consulted to provide IV antibiotic treatment recommendations. -Will need PICC line after blood culture showing no growth for at least 48 hours. -Serial BC until negative -Holding IV fluid -Monitor renal function/UOP/strict I&O -Avoid nephrotoxic meds -supp O2, IS, prn nebs, cont home IH's -Basal and SSI -hold diuretics for now -cont home prednisone with stress dosing hydrocortisone (taper off) -cont BB -PT/OT -CM for placement -ppx: home eliquis / home PPI Time Spent With Patient Time: Total time spent is greater than 50% in coordination of care (as documented) at patient's floor/unit and/or counseling patient: QUALITY Stroke Symptom Onset Unknown: No VTE Deep Vein Thrombosis/Pulmonary Embolism Present on Admission: No
[2022-07-10] MEDS: AMITRIPTYLINE 25 MG TABLET PO SCH (20:29)
[2022-07-10] MEDS: INSULIN GLARGINE, HUMAN 1 UNIT/0.01 ML SQ SCH (20:30)
[2022-07-10] MEDS: Diclofenac Sodium 1 % gel TOPICAL SCH (20:31)
[2022-07-10] MEDS: PRAMIPEXOLE 1 MG TABLET PO SCH (20:38)
[2022-07-11] MEDS: 0.9 % SODIUM CHLORIDE 10 ML SYRINGE IV SCH ×3 (05:11→21:09)
[2022-07-11] MEDS: HYDROcodone/APAP 10/325MG TABLET PO PRN ×2 (05:14→17:17)
[2022-07-11 07:38] LABS: ALT/SGPT 17 U/L (<40); AST/SGOT 12 U/L (<40); Albumin 3.1 gm/dL (3.2-5.2); Albumin/Globulin Ratio 1.1 (1.0-2.3); Alkaline Phosphatase 93 U/L (39-117); Bilirubin,Direct < 0.2 mg/dL (0-0.3); Bilirubin,Total 0.2 mg/dL (0.1-1.0); Blood Urea Nitrogen 28 mg/dL (8-23); Calcium 8.7 mg/dL (8.6-10.4); Carbon Dioxide 24 mmol/L (22-30); Chloride 106 mmol/L (96-108); Globulin 2.8 gm/dL (2.2-3.7); Glomerular Filtration Rate 85; Glucose 79 mg/dL (70-105); Lactate Dehydrogenase 270 U/L (135-225); Phosphorous 3.3 mg/dL (2.5-4.5); Triglycerides 157 mg/dL (<150); Uric Acid 5.5 mg/dL (2.5-8.0)
[2022-07-11] MEDS: INSULIN LISPRO 1 UNIT/0.01 ML UNIT SQ SCH ×4 (08:12→21:04)
[2022-07-11] MEDS: DOCUSATE SODIUM 100 MG CAPSULE PO SCH ×2 (08:12→21:04)
[2022-07-11] MEDS: Fluticasone Furoate-Vilanterol [Breo Ellipta] 100 INH SCH (08:26)
[2022-07-11] MEDS: cefTRIAXone 2 GM in DEXTROSE 5% IN WATER 50 ML IV SCH (08:26)
[2022-07-11] MEDS: MYCOPHENOLATE 250 MG CAPSULE PO SCH ×2 (08:26→20:15)
[2022-07-11] MEDS: HYDROCORTISONE SOD SUCC 100 MG VIAL IV SCH ×2 (08:26→20:16)
[2022-07-11] MEDS: METOPROLOL TARTRATE 50 MG TABLET PO SCH ×2 (08:27→20:16)
[2022-07-11] MEDS: predniSONE 20 MG TABLET PO SCH (08:27)
[2022-07-11] MEDS: APIXABAN 5 MG TABLET PO SCH ×2 (08:27→20:15)
[2022-07-11] MEDS: HYDROXYCHLOROQUINE 200 MG TABLET PO SCH ×2 (08:27→20:16)
[2022-07-11] MEDS: PANTOPRAZOLE 40 MG TABLET PO SCH ×2 (08:27→17:25)
[2022-07-11] MEDS: ISOSORBIDE MONONITRATE 30 MG TAB.XL.24H PO SCH ×2 (08:48→20:20)
[2022-07-11] MEDS: SERTRALINE 100 MG TABLET PO SCH (08:48)
[2022-07-11] MEDS: morphine 15 MG TAB.SR.12H PO SCH ×2 (08:48→20:16)
[2022-07-11] MEDS: LEVOTHYROXINE 50 MCG TABLET PO SCH (08:48)
--- NOTE | 2022-07-11 10:19 | Infectious Disease Consult ---
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 28 H Creatinine Glucose Hemoglobin A1c Calcium Direct Bilirubin GGT 139 H AST Alkaline Phosphatase Lactate Dehydrogenase 270 H NT-Pro-B Natriuret Pep Total Protein Albumin 3.1 L Triglycerides 157 H Procalcitonin 4.05 H 2.08 H Urine Appearance Urine Protein Urine Glucose (UA) Urine Mucus Microbiology: Microbiology 07/09/22 18:13 Blood Blood Culture - Preliminary 07/09/22 18:05 Blood Blood Culture - Preliminary 07/08/22 16:46 Blood Blood Culture - Preliminary Coagulase negative staph 07/08/22 17:10 Blood Blood Culture - Preliminary Coagulase negative staph 07/08/22 06:48 Nasopharynx SARS-CoV-2, Influenza & RSV (PCR) - Final 07/09/22 00:50 Nose - Both Right and Left MRSA (PCR) - Final 07/09/22 00:50 Nasopharynx SARS-CoV-2, Influenza & RSV (PCR) - Final A/P Assessment and plan (1) Bacteremia: Assessment and plan: 71-year-old male patient is admitted with fevers, hypotension, renal failure at arrival with leukocytosis Full-blown septic picture with the coagulase-negative staph bacteremia 1 AND HALF YEAR AGO - HE had a colonoscopy He is status post lumbosacral kyphoplasty in the past He is complaining of worsening low back pain with lumbosacral spinal tenderness No genitourinary symptoms he haS a spinal stimulator in the spinal site, 2 years ago He has a pacemaker placed 1 year ago Bilateral total knee arthroplasty, physical examination benign Right shoulder arthroplasty, physical examination benign Right hip arthroplasty, physical examination benign He gets weekly Benlysta infusion -last infusion was 5 days ago Is now on vancomycin Echo is done, report pending bilateral pedal edema bilateral ball of great toe calluses with no open wounds theres a on open wound on the left third toe that is well healed. repeat blood cx pending Plan: Recommendations: This is not a contamination This is a true bacteremia This gentleman has enough reasons to have coagulase-negative staph bacteremia He needs an MRI of the lumbosacral spine and this should be arranged here or else where because of the spinal stimulator and his worsening low back pain with tenderness- this is to rule out epidural lesions or surgical site infection He needs a transesophageal echocardiogram Repeat cultures are pending We need an sensitivity panel of the coagulase-negative staph For now we will leave him on vancomycin Since the repeat blood cultures are negative for 48 hours, tomorrow , if the cultures are negative we can go ahead and place a PICC line He will need treatment for at least 6 to 8 weeks as if we are treating infective endocarditis or epidural lesion If the coagulase-negative staph is sensitive to oxacillin, we can switch him to cefazolin or oxacillin or nafcillin or simply IV daptomycin 8 mg/kg/day, ideal body weight / rounded body weight If the coagulase-negative staph is sensitive to tetracyclines, once he is done with 2 months of IV antibiotics, he should be on lifetime doxycycline He needs a venous Doppler ID will follow him peripherally Status: Acute Time Spent With Patient Time: Total time spent is greater than 50% in coordination of care (as documented) at patient's floor/unit and/or counseling patient:
--- NOTE | 2022-07-11 16:35 | Ultrasound Report ---
CLINICAL INFORMATION: Bilateral swelling COMPARISON: None. 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 The remaining deep venous system left is widely patent. The entire deep venous system of the right lower extremity including the common femoral, superficial femoral, popliteal and paired trifurcation calf veins are easily compressible and show normal venous blood flow on color and spectral Doppler. 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 Right lower extremity deep venous system is widely patent Interpreted and Authenticated by: Christiano Leal 07/11/22
[2022-07-11] MEDS ORDERED: VANCOMYCIN PER PHARMACY IV ONE (18:08)
[2022-07-11] MEDS ORDERED: VANCOMYCIN 2,000 MG in 0.9 % SODIUM CHLORIDE 500 ML IV ONE (20:00)
[2022-07-11] MEDS: AMITRIPTYLINE 25 MG TABLET PO SCH ×2 (20:16→21:02)
[2022-07-11] MEDS: PRAMIPEXOLE 1 MG TABLET PO SCH (20:16)
[2022-07-11] MEDS: INSULIN GLARGINE, HUMAN 1 UNIT/0.01 ML SQ SCH (20:17)
[2022-07-11] MEDS: Diclofenac Sodium 1 % gel TOPICAL SCH (21:02)
[2022-07-12] MEDS: 0.9 % SODIUM CHLORIDE 10 ML SYRINGE IV SCH ×4 (04:20→22:22)
[2022-07-12] MEDS: PANTOPRAZOLE 40 MG TABLET PO SCH ×2 (07:38→17:31)
[2022-07-12] MEDS: predniSONE 20 MG TABLET PO SCH (07:38)
[2022-07-12] MEDS: morphine 15 MG TAB.SR.12H PO SCH ×2 (07:42→19:42)
[2022-07-12] MEDS: INSULIN LISPRO 1 UNIT/0.01 ML UNIT SQ SCH ×4 (07:43→21:56)
[2022-07-12] MEDS ORDERED: VANCOMYCIN PER PHARMACY IV SCH (08:30)
[2022-07-12] MEDS: DOCUSATE SODIUM 100 MG CAPSULE PO SCH ×2 (09:11→21:41)
[2022-07-12] MEDS: METOPROLOL TARTRATE 50 MG TABLET PO SCH ×2 (09:11→21:55)
[2022-07-12] MEDS: APIXABAN 5 MG TABLET PO SCH ×2 (09:11→21:55)
[2022-07-12] MEDS: HYDROXYCHLOROQUINE 200 MG TABLET PO SCH ×2 (09:11→21:55)
[2022-07-12] MEDS: LEVOTHYROXINE 50 MCG TABLET PO SCH (09:11)
[2022-07-12] MEDS: SERTRALINE 100 MG TABLET PO SCH (09:11)
[2022-07-12] MEDS: ISOSORBIDE MONONITRATE 30 MG TAB.XL.24H PO SCH ×2 (09:11→21:55)
[2022-07-12] MEDS: MYCOPHENOLATE 250 MG CAPSULE PO SCH ×2 (09:11→21:54)
[2022-07-12] MEDS: Fluticasone Furoate-Vilanterol [Breo Ellipta] 100 INH SCH (09:12)
[2022-07-12] MEDS: VANCOMYCIN 1,500 MG in 0.9 % SODIUM CHLORIDE 500 ML IV SCH ×2 (09:12→21:57)
[2022-07-12] MEDS ORDERED: FUROSEMIDE 40 MG/4 ML VIAL IV ONE ×2 (11:23→18:00)
[2022-07-12] MEDS ORDERED: 0.9 % SODIUM CHLORIDE 10 ML SYRINGE IV PRN (11:25)
--- NOTE | 2022-07-12 12:54 | Internal Med Progress Note ---
SUBJECTIVE Subjective Patient information: Note initiated : 07/12/22 at 12:49 pm Service Date, if different from initiated Date: [] Patient: Ashish Rainey a 71 y/o M admitted on 07/08/22 for Fever, SOB. Chief Complaint: [] Interval history: History of present illness: Mr. Rainey is a 71 year old M Presents the ED with fever chills shortness of breath headache shakiness Per family patient had a temperature of 101 at home. Patient states that he was feeling fine yesterday and went to bed feeling okay. Woke up this morning about 4 AM with a bad headache and had fevers and shaking. He did not have any neck stiffness nausea vomiting light sensitivity or altered mental status. He felt weak. He has a chronic cough and there is been no change in that. Has chronic shortness of breath and feels that is been a little bit worse. He wears 4 L of nasal cannula day and night for COPD and pulmonary fibrosis. is concerned for UTI. She says he has been urinating less. Rapid flu and COVID in the ED was negative. Patient reports no wounds on his body. In the ED he was tachycardic on admit and eventually noted to be calm hypotonic tensive but responded to IV fluids. He also became hypoxic at 87% and put on nasal cannula. He is tachypneic in the 20s. Patient had a lactate of 5.2 that improved to 2.6 with IV fluids and a procalcitonin of 0.4. His white blood cell count was essentially normal but he had a bandemia of 18%. And his BUN and creatinine were elevated with a 38/1.6. Glucose also elevated at 252. Source of infection not identified on chest x-ray and UA and so a CT chest abdomen pelvis were done and verbal report to the ED physician was unremarkable. EKG ventricular paced. 3/5 Patient poor sleep. But otherwise feeling a little bit better. Blood glucose quite high this morning. Clarify home insulin regimen. Significant leukocytosis as expected given the bandemia yesterday. Bandemia is now improved. Lactic acidosis improved. Renal function no improvement. A1c 10.9. Urine output mediocre. Continue aggressive IV fluids. 1 blood culture positive thus far for gram-positive cocci in clusters of both bottles of 1 set. Complains of headaches. And states now he has some diarrhea, says he goes back and forth between diarrhea and constipation 3/6 Patient complains of headache. Sore spot on his tongue. 2 sets of blood cultures with gram-positive cocci in clusters and awaiting final identification. Echo pending. Repeat blood cultures from the fifth negative thus far. Leukocytosis improving. Renal function improving. 07/11 No significant changes overnight, patient continues to require oxygen suppl ementation. Infectious disease consulted for recommendations on antibiotic treatment for bacteremia. Transthoracic echocardiogram did not show any valvular vegetations however the valvular assessment was suboptimal. 07/12 Vital stable overnight, sentinel blood cultures showing no growth after 48 ho urs. PICC line ordered. Lasix 40 mg IV twice today then resume home torsemide tomorrow. After PICC line, the patient will be able to discharge. At this point time it is not clear if the patient will do antibiotics infusions at the infusion center or at home. Physical Exam Head: Atraumatic, normal inspection. Eyes: normal appearance, no scleral icterus. Neck: full ROM Respiratory: no respiratory distress. Cardiovascular: normal rate and rhythm, S1, S2. GI/Abdominal: Obesely distended, soft, nontender, no guarding. 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 Neurological: CN II-XII intact, intact motor, intact sensation, spinal stimulator palpable. Psychiatric: normal mood. Skin: warm, normal color Constitutional Vitals: Vital Signs Temp Pulse Resp BP Pulse Ox O2 Del Method O2 Flow Rate 98.5 F 80 20 152/83 99 Nasal Cannula, Bubble Humidifier 2 07/12/22 12:13 07/12/22 12:13 07/12/22 12:13 07/12/22 12:13 07/12/22 12:13 07/12/22 12:13 07/12/22 12:13 Period Temp Pulse Resp BP Sys/Corey Pulse Ox O2 Del Method O2 Flow Rate Last 24 Hr 97.4 F-98.5 F 80-83 16-20 137-152/75-85 95-100 Nasal Cannula- Room Air 2-4 Intake and Output 07/12/22 07/12/22 07/12/22 03:59 11:59 19:59 Intake Total 1500 1360 Output Total 600 300 725 Balance 900 1060 -725 Weight 157.034 kg Intake & Output: Intake & Output 07/12/22 07/12/22 07/12/22 03:59 11:59 19:59 Intake Total 1500 1360 Output Total 600 300 725 Balance 900 1060 -725 Weight 157.034 kg Intake: IV 500 500 Vancomycin 1,500 mg In Sodium 500 500 Chloride 0.9% 500 ml @ 333.3 mls/hr IV Q12H [facility] Rx#: [id number] Oral 1000 860 Output: Void Amount 600 300 725 Other: Meal Breakfast Percent of Meal Consumed 100% Urine Appearance Clear Clear Urine Color Yellow Yellow Pale Urine Odor Normal # Voids 1 OBJ DATA Labs 07/10/22 05:18 07/11/22 05:12 Labs: Abnormal Lab Results 07/11/22 07/11/22 07/10/22 05:12 05:12 05:24 RBC Hgb Hct MCHC Immature Gran % (Auto) Neut % (Auto) Lymph % (Auto) Lymph # (Auto) Immature Gran # Absolute Neutrophils BUN 28 H Glucose Calcium GGT 139 H Lactate Dehydrogenase 270 H Total Protein Albumin 3.1 L Triglycerides 157 H Procalcitonin 2.08 H 4.05 H 07/10/22 07/10/22 07/09/22 05:18 05:18 05:32 RBC 3.40 L Hgb 10.1 L Hct 33.2 L MCHC 30.4 L Immature Gran % (Auto) 1.4 H Neut % (Auto) 90.2 H Lymph % (Auto) 3.6 L Lymph # (Auto) 0.35 L Immature Gran # 0.14 H Absolute Neutrophils 8.89 H BUN 28 H Glucose 138 H Calcium 8.2 L GGT 145 H Lactate Dehydrogenase 245 H Total Protein 5.4 L Albumin 2.9 L Triglycerides Procalcitonin 12.01 H Meds: Medications Acetaminophen (Acetaminophen 325 Mg Tablet) 650 mg PO Q6HP PRN; Protocol PRN Reason: Per Pain Protocol/Fever > 101 Hydrocodone Bitart/Acetaminophen (Hydrocodone/Apap 10/325mg Tablet) 2 tab PO TIDP PRN; Protocol PRN Reason: pain Last Admin: 07/11/22 17:17 Dose: 2 tab Albuterol/Ipratropium (Ipratropium/Albuterol 3 Ml Ampul.Neb) 3 ml NEB Q4HP PRN PRN Reason: Shortness Of Breath Amitriptyline HCl (Amitriptyline 25 Mg Tablet) 50 mg PO HS [facility] Last Admin: 07/11/22 20:16 Dose: 50 mg Apixaban (Apixaban 5 Mg Tablet) 5 mg PO BID [facility] Last Admin: 07/12/22 09:11 Dose: 5 mg Dextrose (Dextrose 50% 50 Ml Vial) 0 ml IV UD PRN PRN Reason: Per Sliding Scale Diagnostic Test (Pha) (Accu-Chek 1 Each Strip) 1 each FS [facility] Last Admin: 07/12/22 11:37 Dose: 1 each Docusate Sodium (Docusate Sodium 100 Mg Capsule) 100 mg PO BID [facility] Last Admin: 07/12/22 09:11 Dose: Not Given Furosemide (Furosemide 40 Mg/4 Ml Vial) 40 mg IV ONCE ONE Stop: 07/12/22 18:01 Glucose (Dextrose 31 Gm Oral.Susp) 15 gm PO PRN PRN PRN Reason: Hypoglycemia Heparin Sodium (Porcine) (Heparin Flush 10 Units/Ml 5 Ml Syringe) 2 ml IV Q12 [facility] Hydroxychloroquine Sulfate (Hydroxychloroquine 200 Mg Tablet) 200 mg PO BID [facility] Last Admin: 07/12/22 09:11 Dose: 200 mg Potassium Chloride 40 meq/ (Dextrose) 520 mls @ 130 mls/hr IV UD PRN PRN Reason: Potassium < 3 Magnesium Sulfate (Magnesium Sulfate) 2 gm in 50 mls @ 50 mls/hr IV UD PRN PRN Reason: Magnesium </= 1.6 Vancomycin HCl 1,500 mg/ (Sodium Chloride) 500 mls @ 333.3 mls/hr IV Q12H [facility] Last Infusion: 07/12/22 11:42 Dose: Infused Insulin Glargine (Insulin Glargine, Human 1 Unit/0.01 Ml) 150 unit SQ [facility] Last Admin: 07/11/22 20:17 Dose: 150 units Insulin Human Lispro (Insulin Lispro 1 Unit/0.01 Ml Unit) 0 unit SQ [facility]; Protocol Last Admin: 07/12/22 11:38 Dose: Not Given Isosorbide Mononitrate (Isosorbide Mononitrate 30 Mg Tab.Xl.24h) 30 mg PO BID [facility] Last Admin: 07/12/22 09:11 Dose: 30 mg Levothyroxine Sodium (Levothyroxine 50 Mcg Tablet) 50 mcg PO QDAY [facility] Last Admin: 07/12/22 09:11 Dose: 50 mcg Metoprolol Tartrate (Metoprolol Tartrate 5 Mg/5 Ml Vial) 5 mg IV Q2HP PRN PRN Reason: Tachyarrhythmias HR>110 Metoprolol Tartrate (Metoprolol Tartrate 50 Mg Tablet) 50 mg PO BID [facility] Last Admin: 07/12/22 09:11 Dose: 50 mg Morphine Sulfate (Morphine 4 Mg/Ml Vial) 0 mg IV Q3HP PRN PRN Reason: Pain Morphine Sulfate (Morphine 15 Mg Tab.Sr.12h) 15 mg PO Q12H [facility]; Protocol Last Admin: 07/12/22 07:42 Dose: 15 mg Mycophenolate Mofetil (Mycophenolate 250 Mg Capsule) 1,500 mg PO BID [facility] Last Admin: 07/12/22 09:11 Dose: 1,500 mg Ondansetron HCl (Ondansetron 4 Mg/2 Ml Vial) 4 mg IV Q4HP PRN PRN Reason: Nausea And Vomiting Pantoprazole Sodium (Pantoprazole 40 Mg Tablet) [facility] Last Admin: 07/12/22 07:38 Dose: 40 mg Aripiprazole 2 Mg (Tablet) 1 dose PO QHS [facility] Last Admin: 07/11/22 21:02 Dose: Not Given Fluticasone Furoate- Vilanterol [Breo Ellipta] 100 1 dose INH Q24H [facility] Last Admin: 07/12/22 09:12 Dose: 1 dose Diclofenac Sodium 1 (% Gel) 1 dose TOPICAL [facility] Last Admin: 07/11/22 21:02 Dose: Not Given Polyethylene Glycol (Polyethylene Glycol 3350 17 Gm Packet) 17 gm PO DAILYP PRN PRN Reason: Constipation Potassium Chloride (Potassium Chloride 20 Meq Tablet) 40 meq PO UD PRN PRN Reason: Potssium is 3-3.5 Potassium Chloride (Potassium Chloride 20 Meq Tablet) 40 meq PO UD PRN PRN Reason: Potassium < 3 Pramipexole Dihydrochloride (Pramipexole 1 Mg Tablet) 4 mg PO [facility] Last Admin: 07/11/22 20:16 Dose: 4 mg Prednisone (Prednisone 20 Mg Tablet) [address] [facility] Stop: 07/16/22 08:01 Last Admin: 07/12/22 07:38 Dose: 20 mg Prednisone (Prednisone 10 Mg Tablet) [address] [facility] Stop: 07/23/22 08:01 Senna (Sennosides 1 Tablet) 2 tab PO DAILYP PRN PRN Reason: Constipation Sertraline HCl (Sertraline 100 Mg Tablet) 100 mg PO QDAY [facility] Last Admin: 07/12/22 09:11 Dose: 100 mg Sodium Chloride (0.9 % Sodium Chloride 10 Ml Syringe) 10 ml IV Q8 [facility] Last Admin: 07/12/22 04:20 Dose: 10 ml Sodium Chloride (0.9 % Sodium Chloride 10 Ml Syringe) 10 ml IV Q12 [facility] Sodium Chloride (0.9 % Sodium Chloride 10 Ml Syringe) 10 ml IV UD PRN PRN Reason: FLUSH Spironolactone (Spironolactone 25 Mg Tablet) 100 mg PO DAILY [facility] Torsemide (Torsemide 20 Mg Tablet) 40 mg PO DAILY [facility] Vancomycin HCl (Vancomycin Per Pharmacy) 1 order IV UD [facility]; Protocol A/P Narrative A/P Narrative: Assessment: 70-year-old male with a history of SLE and 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 Sepsis was complicated by acute kidney injury which has resolved. Sepsis physiology has also resolved. *Resolved severe sepsis due to bacteremia -UA/chest/abd/pelvis negative, no wounds -flu/rsv/covid neg *Coag negative staph bacteremia: Source likely break in the skin given poor skin condition and immunosuppressive's -Echo valvular assessment was suboptimal, did not show vegetations. 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 -Infectious disease was consulted to provide IV antibiotic treatment recommendations. -PICC today. -Lasix IV. -Monitor renal function/UOP/strict I&O -Avoid nephrotoxic meds -supp O2, IS, prn nebs, cont home IH's -Basal and SSI -Resume home torsemide tomorrow. -cont home prednisone, discontinued stress dose hydrocortisone. -cont BB -PT/OT -CM for placement -ppx: home eliquis -CODE STATUS: Full -Disposition: Currently inpatient. After PICC line placed plan is to discharge home. The patient will receive IV antibiotic infusions either at home or at the infusion center. ID recommended an MRI of the lumbosacral spine as well as a transesophageal echocardiogram, these will need to be considered outpatient. Patient does have a cardiac pacemaker as well as a spinal stimulator which rep ortedly are not MRI compatible. Plan is to treat with IV antibiotics for at least 6 to 8 weeks and probably followed by lifelong suppressive oral antibiotic therapy with doxycycline. Time Spent With Patient Time: Total time spent is greater than 50% in coordination of care (as documented) at patient's floor/unit and/or counseling patient: QUALITY Stroke Symptom Onset Unknown: No VTE Deep Vein Thrombosis/Pulmonary Embolism Present on Admission: No
[2022-07-12] MEDS: HYDROcodone/APAP 10/325MG TABLET PO PRN (16:11)
[2022-07-12] MEDS ORDERED: diphenhydrAMINE 25 MG CAPSULE PO PRN (21:00)
[2022-07-12] MEDS: Diclofenac Sodium 1 % gel TOPICAL SCH (21:43)
[2022-07-12] MEDS: AMITRIPTYLINE 25 MG TABLET PO SCH (21:54)
[2022-07-12] MEDS: PRAMIPEXOLE 1 MG TABLET PO SCH (21:54)
[2022-07-12] MEDS: INSULIN GLARGINE, HUMAN 1 UNIT/0.01 ML SQ SCH (21:55)
[2022-07-13] MEDS: 0.9 % SODIUM CHLORIDE 10 ML SYRINGE IV SCH ×2 (05:59→11:22)
[2022-07-13 06:49] LABS: Albumin 3.4 gm/dL (3.2-5.2); Blood Urea Nitrogen 30 mg/dL (8-23); Calcium 8.6 mg/dL (8.6-10.4); Carbon Dioxide 30 mmol/L (22-30); Chloride 103 mmol/L (96-108); Glomerular Filtration Rate 60; Glucose 66 mg/dL (70-105); Phosphorous 4.8 mg/dL (2.5-4.5)
[2022-07-13] MEDS: INSULIN LISPRO 1 UNIT/0.01 ML UNIT SQ SCH ×2 (07:16→12:01)
[2022-07-13] MEDS: PANTOPRAZOLE 40 MG TABLET PO SCH (07:19)
[2022-07-13] MEDS: LEVOTHYROXINE 50 MCG TABLET PO SCH (08:28)
[2022-07-13] MEDS: HYDROXYCHLOROQUINE 200 MG TABLET PO SCH (08:28)
[2022-07-13] MEDS: METOPROLOL TARTRATE 50 MG TABLET PO SCH (08:28)
[2022-07-13] MEDS: APIXABAN 5 MG TABLET PO SCH (08:28)
[2022-07-13] MEDS: predniSONE 20 MG TABLET PO SCH (08:28)
[2022-07-13] MEDS: ISOSORBIDE MONONITRATE 30 MG TAB.XL.24H PO SCH (08:28)
[2022-07-13] MEDS: SERTRALINE 100 MG TABLET PO SCH (08:29)
[2022-07-13] MEDS: MYCOPHENOLATE 250 MG CAPSULE PO SCH (08:29)
[2022-07-13] MEDS ORDERED: POTASSIUM CHLORIDE 20 MEQ TABLET PO ONE (08:34)
[2022-07-13] MEDS: morphine 15 MG TAB.SR.12H PO SCH (08:37)
[2022-07-13] MEDS: DOCUSATE SODIUM 100 MG CAPSULE PO SCH (08:37)
[2022-07-13] MEDS ORDERED: TORSEMIDE 20 MG TABLET PO SCH (09:00)
[2022-07-13] MEDS ORDERED: SPIRONOLACTONE 25 MG TABLET PO SCH (09:00)
--- NOTE | 2022-07-13 10:49 | Discharge Summary ---
Discharge Provider Provider IMPORTANT FOLLOW-UP INFORMATION FOR PCP: Patient information: Note initiated : 07/13/22 at 10:45 am Service Date, if different from initiated Date: [] Patient: Ashish Rainey 71 y/o M admitted on 07/08/22 for Fever, SOB. Chief Complaint: [] Date of admission: 07/08/22 22:27 Discharge date: 07/13/22 Primary care physician: Christiano Casey DO Consults: 07/08/22 Consult to Physician [CONS] Stat Comment: Consulting Provider: Simon Ospina Reason For Exam: Physician to Consult Consult to Physician [CONS] Stat Comment: Consulting Provider: Simon Ospina Reason For Exam: Physician to Consult 07/11/22 08:44 Consult to Physician [CONS] Routine Comment: Consulting Provider: Luis Sanchez - ID Reason For Exam: Physician to Consult COURSE Hospital Course Hospital course: Mr. Rainey is a 71 year old M Presents the ED with fever chills shortness of breath headache shakiness Per family patient had a temperature of 101 at home. Patient states that he was feeling fine yesterday and went to bed feeling okay. Woke up this morning about 4 AM with a bad headache and had fevers and shaking. He did not have any neck stiffness nausea vomiting light sensitivity or altered mental status. He felt weak. He has a chronic cough and there is been no change in that. Has chronic shortness of breath and feels that is been a little bit worse. He wears 4 L of nasal cannula day and night for COPD and pulmonary fibrosis. is concerned for UTI. She says he has been urinating less. Rapid flu and COVID in the ED was negative. Patient reports no wounds on his body. In the ED he was tachycardic on admit and eventually noted to be calm hypotonic tensive but responded to IV fluids. He also became hypoxic at 87% and put on na varun cannula. He is tachypneic in the 20s. Patient had a lactate of 5.2 that improved to 2.6 with IV fluids and a procalcitonin of 0.4. His white blood cell count was essentially normal but he had a bandemia of 18%. And his BUN and creatinine were elevated with a 38/1.6. Glucose also elevated at 252. Source of infection not identified on chest x-ray and UA and so a CT chest abdomen pelvis were done and verbal report to the ED physician was unremarkable. EKG ventricular paced. 3/ Patient poor sleep. But otherwise feeling a little bit better. Blood glucose quite high this morning. Clarify home insulin regimen. Significant leukocytosis as expected given the bandemia yesterday. Bandemia is now improved. Lactic acidosis improved. Renal function no improvement. A1c 10.9. Urine output mediocre. Continue aggressive IV fluids. 1 blood culture positive thus far for gram-positive cocci in clusters of both bottles of 1 set. Complains of headaches. And states now he has some diarrhea, says he goes back and forth between diarrhea and constipation 3/ Patient complains of headache. Sore spot on his tongue. 2 sets of blood cultures with gram-positive cocci in clusters and awaiting final identification. Echo pending. Repeat blood cultures from the fifth negative thus far. Leukocytosis improving. Renal function improving. 07/11 No significant changes overnight, patient continues to require oxygen supplementation. Infectious disease consulted for recommendations on antibiotic treatment for bacteremia. Transthoracic echocardiogram did not show any valvular vegetations however the valvular assessment was suboptimal. 07/12 Vital stable overnight, sentinel blood cultures showing no growth after 48 hours. PICC line ordered. Lasix 40 mg IV twice today then resume home to rsemide tomorrow. After PICC line, the patient will be able to discharge. At this point time it is not clear if the patient will do antibiotics infusions at the infusion center or at home. 07/13 Diuresed well overnight, resumed home torsemide and spironolactone today. Unable to place PICC line while inpatient, so a PICC line will be placed after discharge at the infusion center. Discharged on daptomycin 850 mg IV every 24 hours which will be administered at the infusion center via the PICC line. Plan is to treat for at least 8 weeks with daptomycin, probably followed by lifelong suppressive doxycycline. CBC, CMP, CRP and CK monitored weekly while receiving IV daptomycin. The patient will follow-up with infectious disease in the tele infectious disease clinic. Referral requested to cardiology at [facility] for consideration of DONITA. The patient has a spinal stimulator and cardiac pacemaker which he reports is not MRI compatible therefore obtaining an MRI of the lumbar spine will probably not be feasible at [facility]. Physical Exam Head: Atraumatic, normal inspection. Eyes: normal appearance, no scleral icterus. Neck: full ROM Respiratory: oxygen supplementatino, no respiratory distress. Cardiovascular: normal rate and rhythm, S1, S2. GI/Abdominal: Obesely distended, soft, nontender, no guarding. 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 Neurological: CN II-XII intact, intact motor, intact sensation, spinal stimulator palpable. Psychiatric: normal mood. 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 Acute on chronic kidney disease stage III Severe sepsis Time Spent with Patient Time attestation: Total time spent providing and/or coordinating discharge services: Time spent: Greater than 30 minutes EXAM Constitutional Vitals: Temp Pulse Resp BP Pulse Ox O2 Del Method O2 Flow Rate 97.6 F 80 20 117/73 94 Room Air 2.5 07/13/22 07:55 07/13/22 07:55 07/13/22 07:55 07/13/22 07:55 07/13/22 07:55 07/13/22 07:55 07/13/22 04:00 Discharge Data Data Completed and Pending Labs on day of discharge: Labs from last 24 hours 07/13/22 07/13/22 07:59 05:29 Sodium 140 Potassium 3.7 Chloride 103 Carbon Dioxide 30 Anion Gap 7.0 L BUN 30 H Creatinine 1.2 GFR Calculation 60 Glucose 66 L Calcium 8.6 Phosphorus 4.8 H Albumin 3.4 Vancomycin Trough 25.4 H* Preliminary micro results at discharge 07/09/22 18:13 Blood Culture - Preliminary Blood 07/09/22 18:05 Blood Culture - Preliminary Blood Discharge Plan Patient/Caregiver Discharge Instructions Activity: increase activity as tolerated Diet: Consistent Carbohydrate Prescriptions: New daptomycin 500 mg recon soln 850 mg IV Q24H 56 Days Qty: 56 0RF Rx Instructions: administer over 30 mins Continued cholecalciferol (vitamin D3) 1,000 unit tablet 1,000 unit PO QDAY Qty: 1 0RF ascorbic acid (vitamin C) 500 mg tablet 500 mg PO QDAY Qty: 1 0RF diclofenac sodium 1 % gel 2 g TOPICAL HS Qty: 100 3RF torsemide 20 mg tablet 40 mg PO DAILY Qty: 180 3RF Eliquis 5 mg tablet 5 mg PO BID Qty: 180 3RF pramipexole 1 mg tablet 4 mg PO HS Qty: 360 3RF aripiprazole 2 mg tablet 2 mg PO QHS Qty: 90 1RF albuterol sulfate 90 mcg/actuation HFA aerosol inhaler 2 puff INHALATION TIDP PRN (Reason: shortness of breath or wheezing) Qty: 26 3RF Benlysta 400 mg recon soln 1,400 mg IV Q4W Qty: 250 0RF levothyroxine [Synthroid] 50 mcg tablet 50 mcg PO QDAY Qty: 90 3RF (DME) Lift chair See Rx Instructions .Route .MEDSUPPLY Qty: 1 0RF Rx Instructions: As directed sertraline 100 mg tablet 100 mg PO QDAY Qty: 90 3RF (DME) insulin syringe,safetyneedle 1 mL 31 gauge x 15/64" syringe See Rx Instructions .ROUTE .MEDSUPPLY Qty: 300 1RF Rx Instructions: Use with insulin TID morphine [MS Contin] 15 mg tablet extended release 15 mg PO Q12H Qty: 56 0RF hydrocodone-acetaminophen 10-325 mg tablet 2 tab PO TID PRN (Reason: pain) Qty: 168 0RF mycophenolate mofetil [CellCept] 500 mg tablet 1,500 mg PO BID Patient Comments: Patient was confused and is still taking this, added back on list, RX from Dr. Figueroa~MS,[employer] ([facility] [place]) oxygen See Rx Instructions .Route .MEDSUPPLY Qty: 1 0RF Rx Instructions: Wear daily hydroxychloroquine 200 mg tablet 200 mg PO BID Hold Instructions: Doctor's Order amitriptyline 25 mg tablet 25 mg PO QHS Qty: 90 1RF Rx Instructions: increase in 25 mg increments weekly if needed to max of 100 mg qhs (DME) diabetic shoes See Rx Instructions .Route .MEDSUPPLY Qty: 1 0RF Rx Instructions: As directed ([facility]) Briefs, Adult-Extra Large Misc See Rx Instructions .Route Qty: 28 2RF Rx Instructions: As directed isosorbide mononitrate 30 mg tablet extended release 24 hr 30 mg PO BID (DME) urine strainer See Rx Instructions .Route .MEDSUPPLY Qty: 1 0RF Rx Instructions: As directed silver sulfadiazine [Silvadene] 1 % cream 1 applic TOPICAL BID Qty: 50 0RF Rx Instructions: apply a 1.5 mm thickness to boils spironolactone 50 mg tablet 100 mg PO QAM Qty: 180 3RF prednisone 5 mg tablet 5 mg PO QDAY Rx Instructions: prednisone taper 30 mg x2 more days, then decrease to 20mg daily x7 days. then decrease to 10 mg daily x1 week. pantoprazole 40 mg tablet,delayed release (DR/EC) 40 mg PO BID fluticasone furoate-vilanterol [Breo Ellipta] 100-25 mcg/dose blister with device 1 inh inhalation Q24H Qty: 60 3RF albuterol sulfate 2.5 mg /3 mL (0.083 %) solution for nebulization 2.5 mg inhalation Q6H PRN (Reason: shortness of breath or wheezing) Qty: 360 3RF metoprolol tartrate 50 mg Tablet 50 mg PO BID Trulicity 3 mg/0.5 mL Pen Injector 3 mg SUBCUT WEEKLY insulin aspart U-100 pen injector See Rx Instructions .ROUTE .COMPLEX Rx Instructions: home dose Toujeo SoloStar U-300 Insulin 300 unit/mL (1.5 mL) Insulin Pen 150 unit SUBCUT HS diphenhydramine HCl 50 mg Tablet 50 mg PO QHS PRN (Reason: Insomnia) Rx Instructions: Softgel Other Ambulatory Orders: Complete Blood Count (WEEKLY) Timeframe: [id number] Facility: [facility] - Location: Laboratory Ordered By: Rusty Ficnahomy Complete Blood Count (WEEKLY) Timeframe: [id number] Facility: [facility] - Location: Laboratory Ordered By: Rusty Ficek Complete Blood Count (WEEKLY) Timeframe: [id number] Facility: [facility] - Location: Laboratory Ordered By: Rusty Ficek Complete Blood Count (WEEKLY) Timeframe: [id number] Facility: [facility] - Location: Laboratory Ordered By: Rusty Ficek Complete Blood Count (WEEKLY) Timeframe: [id number] Facility: [facility] - Location: Laboratory Ordered By: Rusty Ficek Complete Blood Count (WEEKLY) Timeframe: [id number] Facility: [facility] - Location: Laboratory Ordered By: Rusty Ficek Complete Blood Count (WEEKLY) Timeframe: [id number] Facility: [facility] - Location: Laboratory Ordered By: Rusty Ficek Complete Blood Count (WEEKLY) Timeframe: [id number] Facility: [facility] - Location: Laboratory Ordered By: Rusty Ficek Creatine Kinase (WEEKLY) Timeframe: [id number] Facility: [facility] - Location: Laboratory Ordered By: Rusty Ficek Creatine Kinase (WEEKLY) Timeframe: [id number] Facility: [facility] - Location: Laboratory Ordered By: Rusty Ficek Creatine Kinase (WEEKLY) Timeframe: [id number] Facility: [facility] - Location: Laboratory Ordered By: Rusty Ficek Creatine Kinase (WEEKLY) Timeframe: [id number] Facility: [facility] - Location: Laboratory Ordered By: Rusty Ficek Creatine Kinase (WEEKLY) Timeframe: [id number] Facility: [facility] - Location: Laboratory Ordered By: Rusty Ficek Creatine Kinase (WEEKLY) Timeframe: [id number] Facility: [facility] - Location: Laboratory Ordered By: Rusty Ficek Creatine Kinase (WEEKLY) Timeframe: [id number] Facility: [facility] - Location: Laboratory Ordered By: Rusty Ficek Creatine Kinase (WEEKLY) Timeframe: [id number] Facility: [facility] - Location: Laboratory Ordered By: Rusty Ficek C-Reactive Protein (WEEKLY) Timeframe: [id number] Facility: [facility] - Location: Laboratory Ordered By: Rusty Ficek C-Reactive Protein (WEEKLY) Timeframe: [id number] Facility: [facility] - Location: Laboratory Ordered By: Rusty Ficek C-Reactive Protein (WEEKLY) Timeframe: [id number] Facility: [facility] - Location: Laboratory Ordered By: Rusty Ficek C-Reactive Protein (WEEKLY) Timeframe: [id number] Facility: [facility] - Location: Laboratory Ordered By: Rusty Ficek C-Reactive Protein (WEEKLY) Timeframe: [id number] Facility: [facility] - Location: Laboratory Ordered By: Rusty Ficek C-Reactive Protein (WEEKLY) Timeframe: [id number] Facility: [facility] - Location: Laboratory Ordered By: Rusty Ficek C-Reactive Protein (WEEKLY) Timeframe: [id number] Facility: [facility] - Location: Laboratory Ordered By: Rusty Ficek C-Reactive Protein (WEEKLY) Timeframe: [id number] Facility: [facility] - Location: Laboratory Ordered By: Rusty Ficek Inpatient Panel (WEEKLY) Timeframe: [id number] Facility: [facility] - Location: Laboratory Ordered By: Rusty Ficek Inpatient Panel (WEEKLY) Timeframe: [id number] Facility: [facility] - Location: Laboratory Ordered By: Rusty Ficek Inpatient Panel (WEEKLY) Timeframe: [id number] Facility: [facility] - Location: Laboratory Ordered By: Rusty Ficek Inpatient Panel (WEEKLY) Timeframe: [id number] Facility: [facility] - Location: Laboratory Ordered By: Rusty Ficek Inpatient Panel (WEEKLY) Timeframe: [id number] Facility: [facility] - Location: Laboratory Ordered By: Rusty Ficek Inpatient Panel (WEEKLY) Timeframe: [id number] Facility: [facility] - Location: Laboratory Ordered By: Rusty Ficek Inpatient Panel (WEEKLY) Timeframe: [id number] Facility: [facility] - Location: Laboratory Ordered By: Rusty Ficek Inpatient Panel (WEEKLY) Timeframe: [id number] Facility: [facility] - Location: Laboratory Ordered By: Rusty Ficek Follow Up Plan Follow up with: Christiano Casey DO [Primary Care Provider] - Patient Disposition: Home, Self-Care Overall status at discharge: patient is progressing back to baseline Discharge Orders: Discharge Order (Routine); Ordered 07/13/22 Ordered By: Rusty Ficnahomy QUALITY VTE Deep Vein Thrombosis/Pulmonary Embolism Present on Admission: No
--- NOTE | 2022-07-13 11:18 | Infectious Disease Consult ---
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 270 H NT-Pro-B Natriuret Pep Total Protein Albumin 3.1 L Triglycerides 157 H Procalcitonin 4.05 H 2.08 H Urine Appearance Urine Protein Urine Glucose (UA) Urine Mucus Vancomycin Trough 07/13/22 07/13/22 05:29 07:59 WBC RBC Hgb Hct MCV MCHC Immature Gran % (Auto) Neut % (Auto) Lymph % (Auto) [place] % (Auto) Lymph # (Auto) Seg Neutrophils % Band Neutrophils % Lymphocytes % Immature Gran # Absolute Neutrophils RBC Morphology Hypochromasia POC VBG pCO2 at Temp POC VBG pO2 POC VBG HCO3 POC VBG Total CO2 POC Venous O2 Sat POC VBG Base Excess VBG Lactic Acid Anion Gap 7.0 L BUN 30 H Creatinine Glucose 66 L Hemoglobin A1c Calcium Phosphorus 4.8 H Direct Bilirubin GGT AST Alkaline Phosphatase Lactate Dehydrogenase NT-Pro-B Natriuret Pep Total Protein Albumin Triglycerides Procalcitonin Urine Appearance Urine Protein Urine Glucose (UA) Urine Mucus Vancomycin Trough 25.4 H* Microbiology: Microbiology 07/09/22 18:13 Blood Blood Culture - Preliminary 07/09/22 18:05 Blood Blood Culture - Preliminary 07/09/22 14:10 Sputum source - Induced Gram Stain - Final 07/09/22 14:10 Sputum source - Induced Sputum Culture - Final 07/08/22 17:10 Blood Blood Culture - Final Coagulase negative staph 07/08/22 16:46 Blood Blood Culture - Final Coagulase negative staph 07/08/22 06:48 Nasopharynx SARS-CoV-2, Influenza & RSV (PCR) - Final 07/09/22 00:50 Nose - Both Right and Left MRSA (PCR) - Final 07/09/22 00:50 Nasopharynx SARS-CoV-2, Influenza & RSV (PCR) - Final A/P Assessment and plan (1) Bacteremia: Assessment and plan: 71-year-old male patient is admitted with fevers, hypotension, renal failure at arrival with leukocytosis Full-blown septic picture with the coagulase-negative staph bacteremia 1 AND HALF YEAR AGO - HE had a colonoscopy He is status post lumbosacral kyphoplasty in the past No genitourinary symptoms he haS a spinal stimulator in the spinal site, 2 years ago He has a pacemaker placed 1 year ago Bilateral total knee arthroplasty, physical examination benign Right shoulder arthroplasty, physical examination benign Right hip arthroplasty, physical examination benign He gets weekly Benlysta infusion -last infusion was 5 days ago Is now on vancomycin Echo is done, negative bilateral pedal edema bilateral ball of great toe calluses with no open wounds theres a on open wound on the left third toe that is well healed. repeat blood cx neagtive since 07/09 Patient will be discharged today to his home He is going home on IV daptomycin 850 mg daily He is not on a statin He is scheduled to see his accessioner on [phone] followed by he will get a transesophageal echocardiogram His low back pain is stable No genitourinary problems Plan: He is going home on IV daptomycin 850 mg daily He needs a weekly CBC, CMP, CPK and CRP He is scheduled for a transesophageal echocardiogram Ideally down the line he should also get a CT scan of the lumbar spine because - his hardware in the body is not MRI compatible Either way , he states his low back pain is neither worse nor better. Once he is done with 2 months of antibiotics, he should be on oral doxycycline indefinitely Tentatively we can put a stop date for antibiotics as 09/07/2022 He can follow-up with the [facility] outpatient clinic Fever, rash, myelosuppression, C. difficile diarrhea, interstitial hepatitis and nephritis, eosinophilic pneumonitis etc. will be the few side effects Rhabdo is another side effect Case was discussed with the family and the primary attending at the bedside Status: Acute Time Spent With Patient Time: Total time spent is greater than 50% in coordination of care (as documented) at patient's floor/unit and/or counseling patient:
[2022-07-13] MEDS: HYDROcodone/APAP 10/325MG TABLET PO PRN (11:22)
[2022-07-13] MEDS: Fluticasone Furoate-Vilanterol [Breo Ellipta] 100 INH SCH (11:23)
--- NOTE | 2022-07-13 15:47 | XRay Report ---
CLINICAL INFORMATION: PICC line placement COMPARISON: 07/08/2022 TECHNIQUE: Portable FINDINGS: The heart size, mediastinum and pulmonary vessels are unremarkable. Pacemaker leads in stable satisfactory position. Left PICC line has been placed tip overlies the SVC in satisfactory position. The lungs are clear. There are no effusions. The lesion that IMPRESSION: No acute disease. PICC line tip in satisfactory position overlying the SVC azygos junction Interpreted and Authenticated by: Christiano Leal 07/13/22
[2022-07-17] MEDS ORDERED: predniSONE 10 MG TABLET PO SCH (08:00)
== END 2022-07-13 16:37 | disposition home or self-care (01) | DRG 871 ==
LOC: ED 13:59 → ICU 22:27 → MEDSUR 07-12 12:26
PROVIDERS: ADMIT Internal Medicine; ATTEND Internal Medicine

== ENCOUNTER 2024-06-12 17:06 | Inpatient (IN) ==
[2024-06-12] MEDS: FUROSEMIDE 100 MG/10 ML VIAL IV ONE (17:40)
[2024-06-12 17:51] LABS: Basophils # (Auto) 0.01 K/mcL (0.00-0.30); Basophils % (Auto) 0.2 % (0.0-2.0); Eosinophils # (Auto) 0.03 K/mcL (0.00-0.70); Eosinophils % (Auto) 0.5 % (0.0-7.0); Hematocrit 35.5 % (40.1-51.0); Hemoglobin 10.6 g/dL (13.7-17.5); Lymphocytes # (Auto) 0.27 K/mcL (1.50-4.80); Lymphocytes % (Auto) 4.4 % (15.5-49.0); Mean Cell Volume 98.9 fL (80.0-100.0); Mean Corpuscular HGB Conc 29.9 g/dL (31.0-36.0); Mean Platelet Volume 10.5 fL (8.8-12.5); Monocytes # (Auto) 0.36 K/mcL (0.10-0.90); Monocytes % (Auto) 5.9 % (1.0-12.0); Platelet Count 182 K/mcL (140-440); RBC 3.59 M/mcL (4.63-6.08); Red Cell Distribution Width 14.1 % (11.5-14.5); WBC 6.1 K/mcL (4.5-11.0)
[2024-06-12 18:13] LABS: ALT/SGPT 27 U/L (<40); AST/SGOT 19 U/L (<40); Albumin 3.3 gm/dL (3.2-5.2); Alkaline Phosphatase 152 U/L (39-117); Bilirubin,Total 0.7 mg/dL (0.1-1.0); Blood Urea Nitrogen 30 mg/dL (8-23); Calcium 8.5 mg/dL (8.6-10.4); Carbon Dioxide 28 mmol/L (22-30); Chloride 98 mmol/L (96-108); Globulin 3.3 gm/dL (2.2-3.7); Glomerular Filtration Rate 59; Glucose 386 mg/dL (70-105); Potassium 4.6 mmol/L (3.3-5.1); Sodium 140 mmol/L (133-145)
[2024-06-12 18:43] LABS: Appearance,Urine Clear (Clear); Bilirubin,Urine Negative (Negative); Color,Urine Yellow; Glucose,Urine (UA) 100 mg/dL (Negative); Ketones,Urine Negative (Negative); Leukocyte Esterase,Urine Negative /uL (Negative); Nitrate,Urine Negative (Negative); PH,Urine 5.5 (5.0-9.0); Protein,Urine Negative (Negative); Urine Blood Negative ery/mcL (Negative); Urine Hyaline Cast 4 /lph (0-2); Urine RBC 0 /hpf (0-3); Urine Squamous Epithelial Cell 0 /hpf (0-4); Urine WBC 0 /hpf (0-4); Urobilinogen,Urine Normal
[2024-06-12] MEDS: INSULIN REGULAR, HUMAN 1 UNIT/0.01 ML UNIT IV ONE (19:22)
[2024-06-12] MEDS ORDERED: morphine 2 MG/ML VIAL IV PRN (21:02)
[2024-06-12] MEDS ORDERED: DEXTROSE 31 GM ORAL.SUSP PO PRN (21:02)
[2024-06-12] MEDS ORDERED: HYDROcodone/APAP 10/325MG TABLET PO PRN (21:02)
[2024-06-12] MEDS ORDERED: ONDANSETRON 4 MG/2 ML VIAL IV PRN (21:02)
[2024-06-12] MEDS ORDERED: ALBUTEROL SULFATE 2.5 MG/3 ML NEBULIZER NEB PRN (21:02)
[2024-06-12] MEDS ORDERED: ACETAMINOPHEN 500 MG TABLET PO PRN (21:02)
[2024-06-12] MEDS ORDERED: DEXTROSE 50% 50 ML VIAL IV PRN (21:02)
[2024-06-12] MEDS: 0.9 % SODIUM CHLORIDE 10 ML SYRINGE IV SCH (23:00)
[2024-06-12] MEDS: SENNOSIDES 1 TABLET PO SCH (23:00)
[2024-06-12] MEDS: DOCUSATE SODIUM 100 MG CAPSULE PO SCH (23:00)
[2024-06-12] MEDS: INSULIN GLARGINE, HUMAN 1 UNIT/0.01 ML SQ SCH (23:06)
[2024-06-12] MEDS: INSULIN LISPRO 1 UNIT/0.01 ML UNIT SQ SCH (23:06)
[2024-06-12] MEDS: LACTULOSE 20 GM/30 ML ORAL.SOL PO SCH (23:41)
[2024-06-12] MEDS: LACTULOSE 20 GM/30 ML ORAL.SOL ONE (23:45)
[2024-06-13] MEDS: IPRATROPIUM/ALBUTEROL 3 ML AMPUL.NEB NEB SCH (00:17)
[2024-06-13] MEDS: PRAMIPEXOLE 1 MG TABLET PO SCH (00:21)
[2024-06-13 06:12] LABS: Basophils # (Auto) 0.02 K/mcL (0.00-0.30); Basophils % (Auto) 0.4 % (0.0-2.0); Eosinophils # (Auto) 0.04 K/mcL (0.00-0.70); Eosinophils % (Auto) 0.8 % (0.0-7.0); Hematocrit 32.9 % (40.1-51.0); Lymphocytes # (Auto) 0.38 K/mcL (1.50-4.80); Lymphocytes % (Auto) 7.4 % (15.5-49.0); Mean Cell Volume 98.8 fL (80.0-100.0); Mean Corpuscular HGB Conc 30.4 g/dL (31.0-36.0); Mean Platelet Volume 10.2 fL (8.8-12.5); Monocytes # (Auto) 0.48 K/mcL (0.10-0.90); Monocytes % (Auto) 9.3 % (1.0-12.0); Neutrophils % (Auto) 81.3 % (38.0-78.0); Platelet Count 167 K/mcL (140-440); RBC 3.33 M/mcL (4.63-6.08); Red Cell Distribution Width 14.1 % (11.5-14.5); WBC 5.2 K/mcL (4.5-11.0)
[2024-06-13 06:37] LABS: ALT/SGPT 25 U/L (<40); AST/SGOT 22 U/L (<40); Albumin 3.1 gm/dL (3.2-5.2); Alkaline Phosphatase 135 U/L (39-117); Bilirubin,Direct 0.2 mg/dL (<0.3); Bilirubin,Total 0.6 mg/dL (0.1-1.0); Blood Urea Nitrogen 28 mg/dL (8-23); Calcium 8.4 mg/dL (8.6-10.4); Carbon Dioxide 33 mmol/L (22-30); Chloride 99 mmol/L (96-108); Globulin 3.1 gm/dL (2.2-3.7); Glomerular Filtration Rate 59; Glucose 207 mg/dL (70-105); Lactate Dehydrogenase 350 U/L (135-225); Phosphorous 3.4 mg/dL (2.5-4.5); Sodium 141 mmol/L (133-145); Triglycerides 139 mg/dL (<150); Uric Acid 7.4 mg/dL (2.5-8.0)
[2024-06-13] MEDS ORDERED: POLYETHYLENE GLYCOL 3350 17 GM PACKET PO PRN (06:49)
[2024-06-13] MEDS: MYCOPHENOLATE 250 MG CAPSULE PO SCH (08:00)
[2024-06-13] MEDS: LEVOTHYROXINE 50 MCG TABLET PO SCH (08:01)
[2024-06-13] MEDS: INSULIN LISPRO 1 UNIT/0.01 ML UNIT SQ SCH (08:01)
[2024-06-13] MEDS: FUROSEMIDE 100 MG/10 ML VIAL IV SCH (08:31)
[2024-06-13] MEDS: predniSONE 5 MG TABLET PO SCH (08:32)
[2024-06-13] MEDS: OMEPRAZOLE 20 MG CAPSULE PO SCH (08:32)
[2024-06-13] MEDS ORDERED: LACTULOSE 20 GM/30 ML ORAL.SOL PO SCH (09:00)
[2024-06-13] MEDS: SPIRONOLACTONE 25 MG TABLET PO SCH (10:50)
[2024-06-13] MEDS: LACTULOSE 20 GM/30 ML ORAL.SOL PO SCH (10:52)
[2024-06-13] MEDS: METOPROLOL TARTRATE 50 MG TABLET PO SCH (10:54)
[2024-06-13] MEDS: morphine 15 MG TAB.SR.12H PO SCH (10:56)
[2024-06-13] MEDS: HYDROXYCHLOROQUINE 200 MG TABLET PO SCH (10:58)
[2024-06-13] MEDS: SERTRALINE 100 MG TABLET PO SCH (11:01)
[2024-06-13] MEDS: acetaZOLAMIDE SOD 500 MG VIAL IV SCH (11:24)
[2024-06-13] MEDS: RIVAROXABAN 20 MG TABLET PO SCH (17:44)
[2024-06-13] MEDS ORDERED: PRAMIPEXOLE 1 MG TABLET PO SCH (21:00)
[2024-06-13] MEDS: Diclofenac Sodium 1 % gel TOPICAL SCH (22:07)
[2024-06-14 06:26] LABS: Basophils # (Auto) 0.02 K/mcL (0.00-0.30); Basophils % (Auto) 0.4 % (0.0-2.0); Eosinophils # (Auto) 0.07 K/mcL (0.00-0.70); Eosinophils % (Auto) 1.3 % (0.0-7.0); Hematocrit 36.7 % (40.1-51.0); Hemoglobin 10.9 g/dL (13.7-17.5); Lymphocytes # (Auto) 0.62 K/mcL (1.50-4.80); Lymphocytes % (Auto) 11.4 % (15.5-49.0); Mean Cell Volume 101.4 fL (80.0-100.0); Mean Corpuscular HGB Conc 29.7 g/dL (31.0-36.0); Mean Platelet Volume 10.3 fL (8.8-12.5); Monocytes # (Auto) 0.55 K/mcL (0.10-0.90); Monocytes % (Auto) 10.1 % (1.0-12.0); Neutrophils % (Auto) 76.1 % (38.0-78.0); Platelet Count 171 K/mcL (140-440); RBC 3.62 M/mcL (4.63-6.08); Red Cell Distribution Width 13.9 % (11.5-14.5); WBC 5.5 K/mcL (4.5-11.0)
[2024-06-14 06:48] LABS: ALT/SGPT 22 U/L (<40); AST/SGOT 21 U/L (<40); Albumin 3.1 gm/dL (3.2-5.2); Alkaline Phosphatase 136 U/L (39-117); Bilirubin,Direct 0.2 mg/dL (<0.3); Bilirubin,Total 0.5 mg/dL (0.1-1.0); Blood Urea Nitrogen 33 mg/dL (8-23); Calcium 8.6 mg/dL (8.6-10.4); Carbon Dioxide 31 mmol/L (22-30); Chloride 101 mmol/L (96-108); Globulin 3.2 gm/dL (2.2-3.7); Glomerular Filtration Rate 54; Glucose 146 mg/dL (70-105); Lactate Dehydrogenase 299 U/L (135-225); Phosphorous 5.3 mg/dL (2.5-4.5); Potassium 3.8 mmol/L (3.3-5.1); Sodium 143 mmol/L (133-145); Triglycerides 114 mg/dL (<150); Uric Acid 7.9 mg/dL (2.5-8.0)
[2024-06-14 10:17] LABS: ABG Methemoglobin 0.1 % (0.4-1.5); Total Hemoglobin 11.3 gm/Dl (13.5-16.5); VBG Base Excess 5 (-2-3); VBG HCO3 34.1 mmol/L (24.0-28.0); VBG Oxygen Saturation 83.6 % (40.0-70.0); VBG PCO2 81.4 mmHg (41.0-51.0); VBG PH 7.24 U (7.32-7.42); VBG PO2 59.6 mmHg (25.0-40.0); VBG Total CO2 36.6 mmol/L (25.0-29.0)
[2024-06-14 12:49] LABS: ABG Methemoglobin 0.3 % (0.4-1.5); Total Hemoglobin 11.5 gm/Dl (13.5-16.5); VBG Base Excess 6 (-2-3); VBG HCO3 34.6 mmol/L (24.0-28.0); VBG Oxygen Saturation 75.7 % (40.0-70.0); VBG PCO2 78.6 mmHg (41.0-51.0); VBG PH 7.26 U (7.32-7.42); VBG PO2 47.6 mmHg (25.0-40.0); VBG Total CO2 37.1 mmol/L (25.0-29.0)
[2024-06-14] MEDS: INSULIN LISPRO 1 UNIT/0.01 ML UNIT SQ SCH ×2 (16:23→20:27)
[2024-06-14] MEDS ORDERED: IPRATROPIUM/ALBUTEROL 3 ML AMPUL.NEB NEB PRN (17:51)
[2024-06-14 18:26] LABS: ABG Methemoglobin 0.1 % (0.4-1.5); Total Hemoglobin 11.6 gm/Dl (13.5-16.5); VBG Base Excess 6 (-2-3); VBG HCO3 33.2 mmol/L (24.0-28.0); VBG Oxygen Saturation 68.3 % (40.0-70.0); VBG PCO2 62.1 mmHg (41.0-51.0); VBG PH 7.35 U (7.32-7.42); VBG Total CO2 35.1 mmol/L (25.0-29.0)
[2024-06-14] MEDS: traZODone HCL 100 MG TABLET PO PRN (20:26)
[2024-06-14] MEDS: INSULIN GLARGINE, HUMAN 1 UNIT/0.01 ML SQ SCH (20:27)
[2024-06-15 06:05] LABS: ABG Methemoglobin 0.2 % (0.4-1.5); Total Hemoglobin 11.1 gm/Dl (13.5-16.5); VBG Base Excess 6 (-2-3); VBG HCO3 32.9 mmol/L (24.0-28.0); VBG Oxygen Saturation 92.8 % (40.0-70.0); VBG PCO2 61.4 mmHg (41.0-51.0); VBG PH 7.35 U (7.32-7.42); VBG PO2 132.9 mmHg (25.0-40.0); VBG Total CO2 34.8 mmol/L (25.0-29.0)
[2024-06-15 06:15] LABS: Basophils # (Auto) 0.01 K/mcL (0.00-0.30); Basophils % (Auto) 0.2 % (0.0-2.0); Eosinophils # (Auto) 0.06 K/mcL (0.00-0.70); Eosinophils % (Auto) 1.3 % (0.0-7.0); Hemoglobin 10.2 g/dL (13.7-17.5); Lymphocytes # (Auto) 0.48 K/mcL (1.50-4.80); Lymphocytes % (Auto) 10.2 % (15.5-49.0); Mean Cell Volume 100.3 fL (80.0-100.0); Mean Platelet Volume 10.3 fL (8.8-12.5); Monocytes # (Auto) 0.38 K/mcL (0.10-0.90); Monocytes % (Auto) 8.1 % (1.0-12.0); Neutrophils % (Auto) 79.3 % (38.0-78.0); Platelet Count 183 K/mcL (140-440); RBC 3.39 M/mcL (4.63-6.08); Red Cell Distribution Width 13.6 % (11.5-14.5); WBC 4.7 K/mcL (4.5-11.0)
[2024-06-15 06:33] LABS: ALT/SGPT 23 U/L (<40); AST/SGOT 25 U/L (<40); Albumin 3.1 gm/dL (3.2-5.2); Albumin/Globulin Ratio 0.9 (1.0-2.3); Alkaline Phosphatase 153 U/L (39-117); Bilirubin,Direct 0.2 mg/dL (<0.3); Bilirubin,Total 0.4 mg/dL (0.1-1.0); Blood Urea Nitrogen 36 mg/dL (8-23); Calcium 8.6 mg/dL (8.6-10.4); Carbon Dioxide 32 mmol/L (22-30); Chloride 98 mmol/L (96-108); Globulin 3.3 gm/dL (2.2-3.7); Glomerular Filtration Rate 54; Glucose 239 mg/dL (70-105); Lactate Dehydrogenase 281 U/L (135-225); Phosphorous 4.6 mg/dL (2.5-4.5); Potassium 3.8 mmol/L (3.3-5.1); Sodium 140 mmol/L (133-145); Triglycerides 152 mg/dL (<150); Uric Acid 8.3 mg/dL (2.5-8.0)
[2024-06-15] MEDS: TORSEMIDE 20 MG TABLET PO SCH (09:25)
[2024-06-15] MEDS: INSULIN GLARGINE, HUMAN 1 UNIT/0.01 ML SQ SCH (20:39)
[2024-06-16 13:57] VITALS: TEMP 97.1; O2SAT 99
== END 2024-06-16 14:36 | DRG 291 ==
LOC: ED 17:06 → MEDSUR 21:00 → ICU 06-14 11:00
PROVIDERS: ADMIT Internal Medicine; ATTEND Internal Medicine